=== PATIENT | female | born 1930 | race Caucasian/White ===

== ENCOUNTER 2017-09-06 08:37 | Inpatient (IN) | payer OTHER, BC ==
--- OUTSIDE RECORDS SUMMARY | 2017-09-06 08:39 | XMS REPORT | Clinical Summary ---
:1930 Author Organization [facility] Address [address] [place] [id number] Care Team Providers Name Role Phone Kiet Coles MD Primary Care Provider Allergies Active Allergy Reactions Severity Noted Date Comments Ciprofloxacin Other (See Comments) 06/01/2016 unknown Sulfa (Sulfonamide High 06/01/2016 Was hospitalized Antibiotics) Current Medications Prescription Sig. Disp. Refills Start Date End Date Status apixaban (ELIQUIS) 5 mg Take 5 mg by Active tablet mouth 2 (two) times a day. levothyroxine (SYNTHROID, Take 100 mcg by Active LEVOXYL) 100 mcg tablet mouth every morning. spironolactone (ALDACTONE) Take 25 mg by Active 25 MG tablet mouth daily. sertraline (ZOLOFT) 25 MG Take 25 mg by Active tablet mouth daily. rosuvastatin (CRESTOR) 5 MG Take 5 mg by Active tablet mouth nightly. tamsulosin (FLOMAX) 0.4 mg Take 0.4 mg by Active capsule,extended release mouth nightly. 24hr metoprolol tartrate Take 50 mg by Active (LOPRESSOR) 50 mg tablet mouth nightly. Active Problems Problem Noted Date Atrial fibrillation 06/01/2016 Family History Medical History Relation Name Comments Heart disease Father Heart disease Mother Relation Name Status Comments Father Mother Social History Tobacco Use Types Packs/Day Years Used Date Former Smoker Comments: quit years a go Alcohol Use Drinks/Week oz/Week Comments Yes 1 Glasses of wine 0.6 1 per month Sex Assigned at Date Recorded Not on file Last Filed Vital Signs Not on file Plan of Treatment Health Maintenance Due Date Last Done Comments SHINGRIX VACCINE (#1) 1981 ZOSTER VACCINE 1991 PNEUMOCOCCAL POLYSACCHARIDE VACCINE AGE 65 AND OVER 02/10/1996 PNEUMOCOCCAL-13 02/10/1996 INFLUENZA VACCINE 12/06/2017 Implants Implanted Type Area Traveling Engineer Device Expiration Model / Identifier Date Serial / Lot Device Closure Ariana Dudley 33mm - [id number] Cardiovascular N/A: [place] 02/25/2019 [id number] / Implanted: 06/01/2016 (Quantity not on file) Implants N/A [employer] / [id number] Results Not on fileafter 09/05/2016 Insurance Payer Benefit Plan / Group Subscriber ID Type Phone Address MEDICARE MEDICARE PART A AND B xxxxxxxxxx Medicare [place], [place] BCBS BCBS CHOICE PPO/FEDERAL EMPL PPO xxxxxxxxx PPO [phone] [place] [id number]
[2017-09-06 09:24] LABS: Absolute Lymphocytes (CBC) 0.3 K/uL (0.7-4.9); Absolute Monocytes 0.7 K/uL (0.1-1.3); Basophils % 0.2 % (0-1.3); Lymphocytes % 2.7 % (15.3-44.8); MCH 29.3 pg (27.0-35.0); MPV 9.3 fL (7.6-11.3); RBC Red Blood Cell Count 4.65 M/uL (3.86-4.86)
--- NOTE | 2017-09-06 09:24 | RAD REPORT ---
EXAM DESCRIPTION: RAD - Chest Single View - 09/06/2017 9:17 am CLINICAL HISTORY: Chest pain. COMPARISON: 04/08/2016 FINDINGS: Portable technique limits examination quality. The lungs are grossly clear. The heart is upper limit normal in size. No displaced fractures. IMPRESSION: No acute intrathoracic process suspected.
[2017-09-06 09:28] LABS: Potassium 3.2 mEq/L (3.6-5.0)
[2017-09-06 09:34] LABS: Albumin 3.7 g/dL (3.2-5.5); Bilirubin Direct 0.2 mg/dL (0-0.2); Magnesium 1.8 mg/dL (1.8-2.5); Protein, Total 6.9 g/dL (6.0-8.3)
[2017-09-06 09:40] LABS: Protime INR 1.13
[2017-09-06 09:59] LABS: Blood Morphology Comment NOT SEEN (NOT SEEN); Platelet Estimate ADEQ; Urine White Blood Cell Casts OK
[2017-09-06] MEDS ORDERED: POTASSIUM CL SA 10 MEQ TAB PO ONE (10:00)
--- NOTE | 2017-09-06 10:01 | RAD REPORT ---
EXAM DESCRIPTION: CT - Head Brain Wo Cont - 09/06/2017 9:55 am CLINICAL HISTORY: Trauma, head injury COMPARISON: 04/08/2016, 11/24/2013 TECHNIQUE: All CT scans are performed using dose optimization technique as appropriate and may inclu de automated exposure control or mA/KV adjustment according to patient size. FINDINGS: No intracranial hemorrhage, hydrocephalus or extra-axial fluid collection.Mild generalized brain atrophy is present with mild periventricular and deep white matter chronic microvascular ische jerrica changes.No areas of brain edema or evidence of midline shift. Moderate fluid is seen in the left mastoid air cell. The paranasal sinuses and mastoids are otherwise clear. The calvarium is intact. IMPRESSION: No acute intracranial abnormality. Moderate left mastoid fluid.
--- NOTE | 2017-09-06 10:19 | EKG ---
Test Date: 2017-09-06 Test Time: 09:06:09 Esthetician Makeup Artist: CLIFF MEASUREMENT RESULTS: Intervals: Rate: 77 UT: QRSD: 82 QT: 394 QTc: 445 [place]: P: UT: QRS: 3 T: -27 INTERPRETIVE STATEMENTS: Atrial fibrillation with premature ventricular or aberrantly conducted complexes Nonspecific ST and T wave abnormality, probably digitalis effect Abnormal ECG Compared to ECG 04/08/2016 08:20:20 Ventricular premature complex(es) now present ST (T wave) deviation now present Sinus bradycardia no longer present Myocardial infarct finding no longer present Electronically Signed On 09-06-17 10:18:31 CDT by Ivan Carver
[2017-09-06 10:43] LABS: Urine Blood 2+ (NEG); Urine Glucose NEGATIVE (NEG); Urine Protein 1+ (NEG); Urine Specific Gravity 1.025 (1.005-1.030); Urine pH 6.5 (5.0-7.0)
[2017-09-06 10:46] LABS: Urine Bacteria LOADED /HPF (<20); Urine Culture Reflex Order REFLEXED
[2017-09-06] MEDS ORDERED: CEFTRIAXONE/SWI 1gm 1 GM/10 ML SYR ONE ×2 (10:57→21:24)
--- NOTE | 2017-09-06 12:40 | ER ---
Nurse's Notes [facility] Name: Jocy Ledesma Age: 87 yrs Sex: Female : 1930 Arrival Date: 09/06/2017 Time: 08:42 Bed 2 Private MD: Diagnosis: Weakness;Urinary tract infection, site not specified Presentation: 09/06 08:44 Presenting complaint: EMS states: EMS staff states patient c/o generalized weakness ae1 that started this morning, when she had a fall off the toilet, and then again trying to get into a wheelchair. Denies LOC, denies pain. Care prior to arrival: EMS states v/s are WNL. Mechanism of Injury: Fall. Trauma event details: Injury occurred in the [facility]. 08:44 Acuity: LORENZA 3 ae1 08:44 Method Of Arrival: EMS: [facility] ae1 11:28 Transition of care: patient was not received from another setting of care. Onset of ae1 symptoms was September 06, 2017 at 07:30. Initial Sepsis Screen: Does the patient meet any 2 criteria? RR > 20 per min. Does the patient have a suspected source of infection? Yes: Dysuria/Frequency/Urgency/UTI. Historical: - Allergies: 08:51 Ciprofloxacin HCl; ae1 08:51 Sulfa (Sulfonamide Antibiotics); ae1 - Home Meds: 08:51 levothyroxine 100 mcg oral tab 1 tab once daily [Active]; metoprolol tartrate 50 mg ae1 Oral tab 1 tab 2 times per day [Active]; sertraline 25 mg oral tab 1 tab once daily [Active]; Vitamin D Oral [Active]; cephalexin 500 mg Oral cap 1 cap every 12 hours [Active]; cranberry Oral [Active]; - PMHx: 08:51 Atrial Fib; GI Bleed; ae1 - Immunization history:: Adult Immunizations up to date. - Social history:: Smoking status: Patient/guardian denies using tobacco. Screenin:26 Abuse screen: Denies threats or abuse. Nutritional screening: No deficits noted. ae1 Tuberculosis screening: No symptoms or risk factors identified. Fall Risk None identified. Assessment: 08:42 General: Appears in no apparent distress. comfortable, Behavior is calm, cooperative. ae1 Pain: Complains of pain in dorsal aspect of left forearm, left wrist, left hand and palmar aspect of left forearm. Neuro: Level of Consciousness is awake, alert, obeys commands, Oriented to person, place, situation. Cardiovascular: Denies chest pain, Heart tones S1 S2 present Patient's skin is warm and dry. Rhythm is atrial fibrillation With PVC's. Respiratory: Airway is patent Respiratory effort is even, unlabored, Respiratory pattern is regular, symmetrical, Breath sounds are clear bilaterally. GI: Reports Nausea when she awoke this morning, however denies nausea at this time. : Urine is cloudy, Foul oder Reports burning with urination. EENT: No signs and/or symptoms were reported regarding the EENT system. Derm: Wound noted dorsal aspect of left forearm, left wrist, left hand and palmar aspect of left forearm Other: redness, swelling and warmth to the touch. patient had wrist brace applied to left wrist. Musculoskeletal: Reports General weakness. 10:15 Reassessment: Patient appears in no apparent distress at this time. Patient and/or ae1 family updated on plan of care and expected duration. Pain level reassessed. Patient denies pain at this time. 11:30 Reassessment: Patient appears in no apparent distress at this time. Patient and/or ae1 family updated on plan of care and expected duration. Pain level reassessed. 13:00 Reassessment: Meal tray delivered to patient. ae1 14:10 Reassessment: Patient appears in no apparent distress at this time. Patient and/or ae1 family updated on plan of care and expected duration. Pain level reassessed. Patient assisted onto bedpan to urinate. Patient denies pain at this time. 18:30 Reassessment: pt c/o pain to left wrist and mild swelling, splint loosened per order of iw Dr. Saucedo. 21:12 Reassessment: Pt stable and ready for transport to floor. tl2 Vital Signs: 08:43 BP 143 / 88; Pulse 88; Resp 27 S; Temp 98.6(O); Pulse Ox 93% on R/A; Weight 70.31 kg ae1 (R); Pain 0/10; 10:14 BP 153 / 96; Pulse 81; Resp 24; Pulse Ox 95% on R/A; ae1 11:25 BP 158 / 94; Pulse 80; Resp 25; Pulse Ox 95% on R/A; ae1 11:57 BP 159 / 73; Pulse 72; Pulse Ox 93% on R/A; ae1 14:07 BP 149 / 94; Pulse 92; Resp 20; Pulse Ox 96% on R/A; ae1 16:00 BP 147 / 82; Pulse 73; Resp 16; Pulse Ox 95% on R/A; ae1 19:30 BP 136 / 90; Pulse 84; Resp 18; Pulse Ox 99% on R/A; mt Dick Coma Score: 08:43 Eye Response: spontaneous(4). Verbal Response: oriented(5). Motor Response: obeys ae1 commands(6). Total: 15. Trauma Score (Adult): 08:43 Eye Response: spontaneous(1); Verbal Response: oriented(1); Motor Response: obeys ae1 commands(2); Systolic BP: > 89 mm Hg(4); Respiratory Rate: 10 to 29 per min(4); Dick Score: 15; Trauma Score: 12 ED Course: 08:42 Patient arrived in ED. ae1 08:42 Gabriel Hernandez PA is PHCP. jr8 08:42 Jose Saucedo MD is Attending Physician. jr8 08:48 Triage completed. ae1 08:55 Ifeanyi Mariano, RONALDO is Primary Nurse. ae1 09:11 Initial lab(s) drawn, by me, sent to lab. EKG done, by ip technology transactions attorney. reviewed by Gabriel jb1 Mary NOYOLA. Inserted saline lock: 22 gauge in right antecubital area, using aseptic technique. Blood collected. 09:15 X-ray completed. Portable x-ray completed in exam room. Patient tolerated procedure sw well. 09:18 XRAY Chest (1 view) In Process Unspecified. EDMS 09:40 Straight cath inserted, using sterile technique, 16 Fr. Specimen obtained. ae1 09:[address] via stretcher. vr 09:53 CT completed. Patient tolerated procedure well. Patient moved back from CT. vr 09:55 CT Head Brain wo Cont In Process Unspecified. EDMS 11:26 Arm band placed on right wrist. ae1 11:27 Placed in gown. Bed in low position. Call light in reach. Side rails up X2. Adult w/ ae1 patient. paint roller cover machine setter on. Pulse ox on. NIBP on. Warm blanket given. 12:39 Coles, A, MD is Hospitalizing Provider. jr8 12:44 X-ray completed. Portable x-ray completed in exam room. Patient tolerated procedure jb2 well. 12:45 XRAY Wrist LEFT 3 view In Process Unspecified. EDMS 14:33 Orthoglass splint: Thumb spica splint applied on left forearm. Radial pulse present and jb1 within normal limits before and after application of splint. Capillary refill was three seconds before and after application of splint. 19:45 Primary Nurse role handed off by Ifeanyi Mariano, RN rg2 21:12 No provider procedures requiring assistance completed. Patient admitted, IV remains in tl2 place. Administered Medications: 10:14 Drug: Potassium Chloride 20 mEq Route: PO; ae1 10:56 Follow up: Response: No adverse reaction ae1 11:15 Drug: Rocephin 1 grams Route: IV; Rate: calculated rate; Site: right antecubital; ae1 13:13 Follow up: IV Status: Completed infusion ae1 Outcome: 12:39 Decision to Hospitalize by Provider. jr8 21:12 Admitted to Tele accompanied by tech, family with patient, via stretcher, room 420, tl2 with chart, Report called to Dasha 21:12 Condition: stable 21:12 Discharge instructions given to patient, family, Instructed on the need for admit. 21:13 Patient left the ED. tl2 Signatures: Dispatcher [employer] EDMS Austin [place] jb1 Uri Paris rg2 Joshua Meyer jb2 Kisha Boo RN RN iw Davis, Victoria vr Roszak, Josh, PA PA jr8 Carla Diallo Taylor, RN RN tl2 Ifeanyi Mariano RN RN ae1 Italia Avalos nc Corrections: (The following items were deleted from the chart) 09:55 09:54 Temp 97.6F Oral; ae1 ae1
--- NOTE | 2017-09-06 12:40 | EDPHYS ---
Physician Documentation [facility] Name: Jocy Ledesma Age: 87 yrs Sex: Female : 1930 Arrival Date: 09/06/2017 Time: 08:42 Bed 2 Private MD: ED Physician Jose Saucedo HPI: 09/06 09:49 This 87 yrs old Female presents to ER via EMS with complaints of General jr8 Weakness, Fall Injury. 09:49 Patient stated that she fell a couple of times this morning from being weak. Denies jr8 hitting head or neck. Stated that her whole body is weak. Denies fevers, recent illness, cough, congestion, n/v/d. Onset: The symptoms/episode began/occurred acutely, today. Severity of symptoms: At their worst the symptoms were moderate in the emergency department the symptoms are unchanged. It is unknown whether or not the patient has had similar symptoms in the past. The patient has not recently seen a physician. Historical: - Allergies: 08:51 Ciprofloxacin HCl; ae1 08:51 Sulfa (Sulfonamide Antibiotics); ae1 - Home Meds: 08:51 levothyroxine 100 mcg oral tab 1 tab once daily [Active]; metoprolol tartrate 50 mg ae1 Oral tab 1 tab 2 times per day [Active]; sertraline 25 mg oral tab 1 tab once daily [Active]; Vitamin D Oral [Active]; cephalexin 500 mg Oral cap 1 cap every 12 hours [Active]; cranberry Oral [Active]; - PMHx: 08:51 Atrial Fib; GI Bleed; ae1 - Immunization history:: Adult Immunizations up to date. - Social history:: Smoking status: Patient/guardian denies using tobacco. ROS: 09:49 Eyes: Negative for injury, pain, redness, and discharge, ENT: Negative for injury, jr8 pain, and discharge, Neck: Negative for injury, pain, and swelling, Cardiovascular: Negative for chest pain, palpitations, and edema, Respiratory: Negative for shortness of breath, cough, wheezing, and pleuritic chest pain, Abdomen/GI: Negative for abdominal pain, nausea, vomiting, diarrhea, and constipation, Back: Negative for injury and pain, MS/Extremity: Negative for injury and deformity, Skin: Negative for injury, rash, and discoloration. 09:49 Neuro: Positive for weakness. Exam: 09:49 Eyes: Pupils equal round and reactive to light, extra-ocular motions intact. Lids and jr8 lashes normal. Conjunctiva and sclera are non-icteric and not injected. Cornea within normal limits. Periorbital areas with no swelling, redness, or edema. ENT: Nares patent. No nasal discharge, no septal abnormalities noted. Tympanic membranes are normal and external auditory canals are clear. Oropharynx with no redness, swelling, or masses, exudates, or evidence of obstruction, uvula midline. Mucous membranes moist. Neck: Trachea midline, no thyromegaly or masses palpated, and no cervical lymphadenopathy. Supple, full range of motion without nuchal rigidity, or vertebral point tenderness. No Meningismus. Cardiovascular: Regular rate and rhythm with a normal S1 and S2. No gallops, murmurs, or rubs. Normal PMI, no JVD. No pulse deficits. Respiratory: Lungs have equal breath sounds bilaterally, clear to auscultation and percussion. No rales, rhonchi or wheezes noted. No increased work of breathing, no retractions or nasal flaring. Abdomen/GI: Soft, non-tender, with normal bowel sounds. No distension or tympany. No guarding or rebound. No evidence of tenderness throughout. Back: No spinal tenderness. No costovertebral tenderness. Full range of motion. Skin: Warm, dry with normal turgor. Normal color with no rashes, no lesions, and no evidence of cellulitis. MS/ Extremity: Pulses equal, no cyanosis. Neurovascular intact. Full, normal range of motion. Neuro: Awake and alert, GCS 15, oriented to person, place, time, and situation. Cranial nerves II-XII grossly intact. Motor strength 5/5 in all extremities. Sensory grossly intact. Cerebellar exam normal. Normal gait. Vital Signs: 08:43 BP 143 / 88; Pulse 88; Resp 27 S; Temp 98.6(O); Pulse Ox 93% on R/A; Weight 70.31 kg ae1 (R); Pain 0/10; 10:14 BP 153 / 96; Pulse 81; Resp 24; Pulse Ox 95% on R/A; ae1 11:25 BP 158 / 94; Pulse 80; Resp 25; Pulse Ox 95% on R/A; ae1 11:57 BP 159 / 73; Pulse 72; Pulse Ox 93% on R/A; ae1 14:07 BP 149 / 94; Pulse 92; Resp 20; Pulse Ox 96% on R/A; ae1 16:00 BP 147 / 82; Pulse 73; Resp 16; Pulse Ox 95% on R/A; ae1 19:30 BP 136 / 90; Pulse 84; Resp 18; Pulse Ox 99% on R/A; mt [place] Coma Score: 08:43 Eye Response: spontaneous(4). Verbal Response: oriented(5). Motor Response: obeys ae1 commands(6). Total: 15. Trauma Score (Adult): 08:43 Eye Response: spontaneous(1); Verbal Response: oriented(1); Motor Response: obeys ae1 commands(2); Systolic BP: > 89 mm Hg(4); Respiratory Rate: 10 to 29 per min(4); Dick Score: 15; Trauma Score: 12 MDM: 08:42 Patient medically screened. [facility] 12:38 Data reviewed: vital signs, nurses notes, lab test result(s), EKG, radiologic studies, [facility] CT scan, plain films, and as a result, I will admit patient. Data interpreted: Pulse oximetry: on room air is 93 %. Interpretation: normal. Counseling: I had a detailed discussion with the patient and/or guardian regarding: the historical points, exam findings, and any diagnostic results supporting the discharge/admit diagnosis, lab results, radiology results, the need for further work-up and treatment in the hospital. Physician consultation: A Sanket CHEN was called at 12:39, was contacted at 12:39, regarding admission, to the telemetry unit. consult, patient's condition, and will see patient. 12:48 ED course: placed call to Rhina Pascal for obs vs inpatient admission. Awaiting call back .09/06 08:52 Order name: Basic Metabolic Panel; Complete Time: 09:48 09/06 08:52 Order name: BNP; Complete Time: 09:48 09/06 08:52 Order name: CBC with Diff; Complete Time: 10:20 09/06 08:52 Order name: CPK; Complete Time: 09:48 09/06 08:52 Order name: LFT's; Complete Time: 09:48 09/06 08:52 Order name: Magnesium; Complete Time: 09:48 8 09/06 08:52 Order name: PT-INR; Complete Time: 09:58 8 09/06 08:52 Order name: XRAY Chest (1 view); Complete Time: 09:48 8 09/06 08:53 Order name: Urine Microscopic Only; Complete Time: 10:52 8 09/06 08:54 Order name: CT Head Brain wo Cont; Complete Time: 10:20 8 09/06 09:30 Order name: CBC Smear Scan; Complete Time: 10:20 [facility] 09/06 09:50 Order name: Urine Dipstick--Ancillary (enter results); Complete Time: 10:52 [facility] 09/06 10:48 Order name: Urine Culture [facility] 09/06 10:59 Order name: XRAY Wrist LEFT 3 view; Complete Time: 13:04 8 09/06 08:52 Order name: EKG; Complete Time: 08:53 8 09/06 08:52 Order name: Cardiac monitoring; Complete Time: 09:12 8 09/06 08:52 Order name: EKG - Nurse/Tech; Complete Time: 09:12 09/06 08:52 Order name: IV Saline Lock; Complete Time: 09:13 8 09/06 08:52 Order name: Labs collected and sent; Complete Time: 09:13 09/06 08:52 Order name: O2 Per Protocol; Complete Time: 09:13 09/06 08:52 Order name: O2 Sat Monitoring; Complete Time: 09:13 09/06 08:52 Order name: Urine Dipstick-Ancillary (obtain specimen); Complete Time: 09:37 8 09/06 08:53 Order name: Straight Cath - Urine; Complete Time: 09:37 8 09/06 12:48 Order name: Thumb Spica Splint; Complete Time: 14:07 jr8 Administered Medications: 10:14 Drug: Potassium Chloride 20 mEq Route: PO; ae1 10:56 Follow up: Response: No adverse reaction ae1 11:15 Drug: Rocephin 1 grams Route: IV; Rate: calculated rate; Site: right antecubital; ae1 13:13 Follow up: IV Status: Completed infusion ae1 Disposition: 09/06/17 12:39 Hospitalization ordered by Grabiel Coles for Observation. Preliminary diagnosis are Weakness, Urinary tract infection, site not specified. - Bed requested for Telemetry/MedSurg (observation). - Status is Observation. tl2 - Condition is Stable. - Problem is new. - Symptoms have improved. UTI on Admission? Yes Addendum: 09/08/2017 07:05 Co-signature as Attending Physician, Jose Saucedo MD I agree with the assessment and w a plan of care. Signatures: Dispatcher [employer] EDMS Prachi Berry RN RN Gabriel Kang PA PA jr8 Lara George RN RN tl2 Ifeanyi Mariano RN RN ae1 Jose Saucedo MD MD wa Corrections: (The following items were deleted from the chart) 09/06 13:08 12:39 Hospitalization Ordered by A Sanket CHEN for Inpatient Admission. Preliminary jr8 diagnosis is Weakness; Urinary tract infection, site not specified. Bed requested for Telemetry/MedSurg (Inpatient). Status is Inpatient Admission. Condition is Stable. Problem is new. Symptoms have improved. UTI on Admission? Yes. jr8 19:25 13:08 09/06/2017 12:39 Hospitalization Ordered by A Sanket CHEN for Observation. kl Preliminary diagnosis is Weakness; Urinary tract infection, site not specified. Bed requested for Telemetry/MedSurg (observation). Status is Observation. Condition is Stable. Problem is new. Symptoms have improved. UTI on Admission? Yes. jr8 21:13 19:25 09/06/2017 12:39 Hospitalization Ordered by A Sanket CHEN for Observation. tl2 Preliminary diagnosis is Weakness; Urinary tract infection, site not specified. Bed requested for Telemetry/MedSurg (observation). Status is Observation. Condition is Stable. Problem is new. Symptoms have improved. UTI on Admission? Yes. elvia
--- NOTE | 2017-09-06 12:59 | RAD REPORT ---
EXAM DESCRIPTION: RAD - Wrist Left 3 View - 09/06/2017 12:47 pm CLINICAL HISTORY: Pain and redness. COMPARISON: None. FINDINGS: Prominent degenerative change with periarticular calcification noted involving the first c arpometacarpal joint. Calcification of the TFCC is present with radiocarpal degenerative changes. S oft tissue swelling is seen. IMPRESSION: No acute fracture seen. Prominent degenerative changes involving the first carpometacarpal joint is seen with periarticular c alcifications. Calcifications also seen involving the TFCC. Clinical correlation for possible underly ing inflammatory arthropathy such as CPPD is suggested.
[2017-09-06] MEDS ORDERED: NA CHLORIDE 0.9% 1,000 ML ONE (15:03)
[2017-09-06] MEDS ORDERED: ACETAMINOPHEN 500 MG TAB PO PRN (17:48)
[2017-09-06] MEDS: NA CHLORIDE 0.9% 1,000 ML IV SCH (20:37)
[2017-09-06] MEDS ORDERED: ONDANSETRON 4 MG/2 ML VIAL IV PRN (20:37)
[2017-09-06] MEDS: METOPROLOL TAR 25 MG TAB PO SCH (21:00)
[2017-09-06] MEDS ORDERED: CEFTRIAXONE 1 GM/NS 50 ML 1 GM/50 ML BAG IV SCH (21:00)
[2017-09-06] MEDS: APIXABAN 2.5 MG TABLET PO SCH (21:00)
[2017-09-07] MEDS: NA CHLORIDE 0.9% 1,000 ML IV SCH (04:10)
--- NOTE | 2017-09-07 05:55 | HP ---
Date of Admission: 09/06/2017 Chief Complaint: Weakness and fall. History Of Present Illness: An 87-year-old female patient, who lives at home, who fell down due to generalized weakness and was brought into the emergency room. She was complaining of some pain in her left forearm and wrist area. She was evaluated in the ER. There was no evidence of any fracture and she was found to have urinary tract infection. It was difficult for her to ambulate, so I was contacted from the ER requesting admission to the hospital. I saw her in the emergency room. She was awake, alert, oriented, answering questions appropriately, and her daughter was with her. Allergies: CIPRO AND SULFA. Medications: List reviewed. Review of Systems: Constitutional: As mentioned above. Genitourinary: Has some burning sensation on urination. All other systems reviewed and negative. Social History: Negative for smoking and alcohol use. The patient does have prior history of smoking, but she quit long time ago. Family History: Mother had Alzheimer disease, diabetes, Parkinson. Brother had diabetes. Past Surgical History: Hysterectomy, cataract surgery, bladder suspension, hemorrhoid surgery, and Watchman device in place for atrial fibrillation. Past Medical History: Significant for hypertension, hyperlipidemia, hypothyroidism, gastroesophageal reflux disease, osteoarthritis at multiple sites, atrial fibrillation, vitamin D deficiency. Physical Examination: Vital signs: When she came into ER, blood pressure 143/88, pulse 88, respiratory rate 27, temperature 98.6, oxygen saturation 93%. Weight 70.31 kg. General: Awake, alert, oriented, not in distress. HEENT: Head atraumatic, normocephalic. Conjunctivae nonerythematous. Sclerae white. Mouth, no thrush or edema noted. Ears/Nose, no mass, lesion, discharge noted. Neck: Supple. No JVD, lymph nodes, bruit, thyromegaly noted. Lungs: Bilateral good equal air entry. Clear to auscultation. No rhonchi. No rales. Heart: Normal heart sounds, no murmur or gallop. Abdomen: Soft, bowel sounds normal. No guarding, rigidity, tenderness, mass, hepatosplenomegaly, distention, or bruit noted. Extremities: No leg edema. No calf tenderness. Skin: No rash, ulcer, cellulitis. Lymphatics: No lymph node enlargement in neck, supraclavicular, infraclavicular region. Neuro: No focal neurological deficit. Chest: Unremarkable. External Genitalia: Deferred. Rectal: Deferred. Laboratory Data: Wrist x-ray; negative for fracture, presence of degenerative joint disease changes. CAT scan of the head negative for any acute intracranial changes. Chest x-ray, no acute cardiopulmonary changes. White count 12.1, hemoglobin 13.6, platelets 165. Sodium 137, potassium 3.2, chloride 101, bicarb 30, BUN 12, creatinine 0.76, glucose 160. Liver function tests unremarkable. BNP 471. Urinalysis; positive for nitrite, 2+ esterase, 20 -50 wbc, bacteria loaded, 1+ protein. Impression: 1. Urinary tract infection. 2. Osteoarthritis, multiple sites. 3. Atrial fibrillation. 4. Hypokalemia. 5. Hypertension. 6. Hyperlipidemia. 7. Hypothyroidism. 8. Gastroesophageal reflux disease. 9. Vitamin D deficiency. Plan: Admit the patient to hospital for further evaluation and management of this problem. We will go ahead and give her IV fluid. Replace electrolyte. Repeat blood work tomorrow morning. Start IV antibiotics per order. Home medications will be continued per order. We will request consultation from Physical Therapy. Fall precaution was ordered, and I will see her tomorrow for followup. We will monitor atrial fibrillation problem. She was on Eliquis in the past and we will restart if it is necessary. Meanwhile, give Lovenox per order. I did talk to her and her daughter about advance directives. The patient is thinking about no heroic measures like no defibrillation, no CPR, no ventilator support, but she is not sure about this decision, so at this point she remains full code per her decision and she is going to discuss details with her daughter and then come up with a final decision and let me know. I did talk to patient's daughter as she had question about if the patient needs to go to assisted care facility or nursing facility, and we did talk about all those options as well. FATIMAH/MARSHALL Voice ID: [id number] TABITHA
[2017-09-07 06:47] LABS: Absolute Lymphocytes (CBC) 0.8 K/uL (0.7-4.9); Absolute Monocytes 0.9 K/uL (0.1-1.3); Absolute Neutrophil 8.4 K/uL (1.8-8.0); Basophils % 0.4 % (0-1.3); Eosinophils % 0.3 % (0-4.4); Hematocrit 36.9 % (36.0-45.0); Lymphocytes % 8.1 % (15.3-44.8); MCH 29.2 pg (27.0-35.0); MCV 89.2 fL (80-100); Monocytes % 8.8 % (3.3-12.3); RBC Red Blood Cell Count 4.14 M/uL (3.86-4.86)
[2017-09-07 06:52] LABS: BUN Blood Urea Nitrogen 11 mg/dL (6-20); Bicarbonate 30 mEq/L (21-31); Glucose Level 112 mg/dL (65-120); Magnesium 1.9 mg/dL (1.8-2.5); Potassium 3.2 mEq/L (3.6-5.0); Sodium Level 137 mEq/L (135-145)
[2017-09-07] MEDS: APIXABAN 2.5 MG TABLET PO SCH ×2 (08:21→08:32)
[2017-09-07] MEDS: METOPROLOL TAR 25 MG TAB PO SCH ×2 (08:21→21:00)
[2017-09-07] MEDS: CEFTRIAXONE/SWI 1gm 1 GM/10 ML SYR IV SCH ×2 (08:21→20:59)
[2017-09-07] MEDS: CHOLECALCIFEROL PO SCH (09:00)
[2017-09-07] MEDS: ASCORBATE CALCIUM 500 MG PO SCH ×2 (09:00→20:59)
[2017-09-07] MEDS: CRANBERRY FRUIT PO SCH ×2 (09:00→20:59)
--- NOTE | 2017-09-07 11:14 | ECHO ---
HEIGHT: 5 ft 8 in WEIGHT: 191 lb 0 oz DATE OF STUDY: 09/07/[address]: Sanjeev Field MD 2-DIMENSIONAL: YES M.MODE: YES DOPPLER: YES COLOR FLOW: YES TDS: NO PORTABLE: NO DEFINITY: NO BUBBLE STUDY: NO DIAGNOSIS: ATRIAL FIBRILLATION CARDIAC HISTORY: CATHERIZATION: SURGERY: PROSTHETIC VALVE: PACEMAKER: MEASUREMENTS (cm) DIASTOLIC (NORMALS) SYSTOLIC (NORMALS) IVSd 1.1 (0.6-1.2) LA Diam 4.4 (1.9-4.0) LVEF 47% LVIDd 4.2 (3.5-5.7) LVIDs 3.2 (2.0-3.5) %FS 23% LVPWd 1.0 (0.6-1.2) Ao Diam 2.9 (2.0-3.7) 2 DIMENSIONAL ASSESSMENT: RIGHT ATRIUM: DILATED LEFT ATRIUM: DILATED RIGHT VENTRICLE: NORMAL LEFT VENTRICLE: NORMAL TRICUSPID VALVE: NORMAL MITRAL VALVE: NORMAL PULMONIC VALVE: NORMAL AORTIC VALVE: NORMAL PERICARDIAL EFFUSION: NONE AORTIC ROOT: NORMAL LEFT VENTRICULAR WALL MOTION: MILD GLOBAL HYPOKINESIS. DOPPLER/COLOR FLOW: MILD MITRAL AND TRICUSPID REGURGITATION. NORMAL RIGHT VENTRICULAR SYSTOLIC PRESSURE. COMMENTS: MILDLY DEPRESSED LEFT VENTRICULAR EJECTION FRACTION. DILATED LEFT AND RIGHT ATRIUM. 60-80 BEATS PER MINUTE. ATRIAL FIBRILLATION. MILD MITRAL AND TRICUSPID REGURGITATION. TECHNOLOGIST: MAYA GOMEZ [facility]
--- NOTE | 2017-09-07 14:58 | CON ---
Date of Consultation: 09/07/[address] Cervantes's service and I saw the patient on 09/07/2017. Reason For Consultation: Atrial fibrillation. History Of Present Illness: Ms. Ledesma is an 87-year-old white woman. She is a patient of Dr. Eduardo tejeda, has undergone Watchman procedure because of history of GI bleeding and atrial fibrillation. Com es in with fall and weakness spell, found to have UTI. She has been treated effectively. She is asy mptomatic now. She has atrial fibrillation that is chronic in the 80s, but no symptoms. She had a n egative chest x-ray and she had . Echocardiogram is pending. Past Medical History: As stated atrial fibrillation, GI bleed . She is status post Watchm an procedure. Allergies: SULFA AND CIPROFLOXACIN. Medications: At home include metoprolol and Synthroid. Review of Systems: Negative. Social History: Negative. Family History: Negative. Physical Examination: General: She appears to be in no acute distress. She is alert and oriented x3. HEENT: Negative. Neck: Supple with no bruit. Chest: Clear. Cardiac: Revealed atrial fibrillation. Abdomen: Benign. Extremities: Revealed no clubbing, cyanosis, or edema. Diagnostic Data: As stated earlier. Impression: 1.Chronic atrial fibrillation, rate controlled, no symptoms, status post Watchman procedure with his tory of GI bleed. I would suggest just the baby aspirin, and I would personally avoid the use of Laurie pat and continue her beta solo. We will see what the echo shows before making final decision, bu t the case will be discussed with Dr. Coles. 2.History of GI bleed, stable. 3.History of hypothyroidism, on Synthroid. 4.Urinary tract infection, being treated now by Dr. Coles. The patient can go home whenever it is ok ay with Dr. Coles. BARON/MARSHALL Voice ID: [id number] Report ID: [id number]
[2017-09-07] MEDS: ASPIRIN 81 MG PO SCH (20:59)
[2017-09-07] MEDS: ACIDOPH PARACASEI B LACTIS PO SCH (20:59)
[2017-09-07] MEDS: TAMSULOSIN HCL 0.4 MG PO SCH (20:59)
[2017-09-07] MEDS: ROSUVASTATIN CALCIUM 5 MG PO SCH (20:59)
[2017-09-07] MEDS: DONEPEZIL HCL 10 MG PO SCH (20:59)
--- NOTE | 2017-09-07 22:20 | RAD REPORT ---
EXAM DESCRIPTION: CT - Wrist Left W Con - 09/07/2017 9:20 pm CLINICAL HISTORY: Left hand pain and swelling COMPARISON: Left wrist same date TECHNIQUE: Axial 2 millimeter thick images of the wrist were obtained with sagittal and coronal ozzy nstruction images generated and reviewed. FINDINGS: Advanced degenerative changes are present at the first carpal - metacarpal articulation. J oint space narrowing and marginal spurring is seen. Degenerative cystic changes are seen throughout m any of the carpal bones. An acute fracture is not identifiable. There are calcifications within the t riangular fibrocartilage complex. No pathologic destructive bone process seen. Small calcifications a re seen along the radiocarpal joint space. Soft tissue edema changes surround the wrist. No air, foreign body or drainable fluid collection. IMPRESSION: Soft tissue edema surrounds the wrist with no air, foreign body or drainable fluid colle ction. Degenerative changes are present throughout the wrist most notable at the first carpal - metacarpal a rticulation. No fracture confirmed on this study.
--- NOTE | 2017-09-08 00:58 | PN ---
Date of Progress Note: 09/07/2017 Subjective: The patient was seen this morning for followup. No new complaints or problems reported by her lying in bed, not in any distress. Objective: Vital Signs: Reviewed. HEENT: Examination unremarkable. Lungs: Clear to auscultation. Heart: Sounds normal. Abdomen: Soft. Bowel sounds normal. No guarding, rigidity, tenderness, or distention. Extremities: No leg edema. Laboratory Data: White count 10.3, hemoglobin 12.1, platelets 150. Impression: 1.Urinary tract infection. 2.Generalized weakness. 3.Atrial fibrillation. 4.Hypokalemia. 5.Hypertension. Plan: We will continue current medication. Urine culture result is pending. Continue IV antibiotic s. Discontinue IV fluid. Physical Therapy to help with the patient and to ambulate. We will follow up with Social Service to help make arrangements for discharge planning and bedside commode. During the course of day today, she had some problem with redness and pain in her left forearm wrist area a nd Orthopedic consultation was requested. Family to work with Social Service for discharge planning and I will see her tomorrow for followup. FATIMAH/MODL Voice ID: [id number] Report ID: [id number]
[2017-09-08] MEDS: Levothyroxine Sodium 100 MCG TAB PO SCH (05:42)
[2017-09-08] MEDS ORDERED: Meropenem 1000 MG/VIAL IV SCH (09:00)
[2017-09-08] MEDS: CRANBERRY FRUIT PO SCH ×2 (09:06→21:20)
[2017-09-08] MEDS: SERTRALINE 25 MG PO SCH (09:06)
[2017-09-08] MEDS: ASCORBATE CALCIUM 500 MG PO SCH ×2 (09:06→21:19)
[2017-09-08] MEDS: METOPROLOL TAR 25 MG TAB PO SCH ×2 (09:07→21:15)
[2017-09-08] MEDS: CHOLECALCIFEROL PO SCH (09:07)
[2017-09-08] MEDS: IBUPROFEN 200 MG TAB PO SCH ×2 (09:08→21:25)
[2017-09-08] MEDS: Meropenem 1,000 MG in NA CHLORIDE 0.9% 100 ML IV SCH ×2 (09:18→21:27)
--- NOTE | 2017-09-08 16:15 | RAD REPORT ---
EXAM DESCRIPTION: RAD - Chest Single View - 09/08/2017 4:03 pm CLINICAL HISTORY: Device placement PICC line placement COMPARISON: none FINDINGS: A PICC line has been inserted with its tip in the distal superior vena cava. The right lung base is hazy. The bilateral interstitial opacities probably are chronic. The heart is normal size. IMPRESSION: PICC line with its tip in the distal superior vena cava The right lung base is hazy which could be secondary to a small pleural effusion, atelectasis or mild infiltrate
--- NOTE | 2017-09-08 18:34 | CON ---
Date of Consultation: 09/07/2017 This is my first time seeing this patient to my knowledge. She is an 87-year- old female, who may or may not have fallen. She is admitted for UTI as well as problems, which may be related to a fall. She says she was having pain in her hand as well as perhaps a slight amount of swelling prior to the fall; however, now, has developed increasing pain and problems related to her left hand. She does have a significant amount of swelling related to it. This pain is primarily in the region of the first CMC or first web space. X-rays were taken of her wrist, which demonstrated severe degenerative changes of the first CMC, whether or not this is complicated by fracture is quite difficult to assess, but it does appear to be TFCC calcifications, and may very well be consistent with fracture or at least an injury to the first CMC joint. She does not really have any expanding erythema. I do not believe it is consistent with cellulitis. She does have movement of all of her fingers. I do not see any signs of septic flexor tenosynovitis, although she does have significant swelling. Assessment: There are various etiologies for this possibility of tendinitis or exacerbation of first CMC arthritis is there; however, there may very well be direct trauma of the first CMC or other carpal structures, which are causing the problem. Also, there is the possibility of simple tendinitis, less likely though, perhaps more serious possibility of deep palmar infection or abscess. Plan: At this time, I will speak with Dr. Coles. Most likely, we will move forward with elevation and after speaking with Dr. Coles, we will probably move forward with some sort of imaging, most likely a CT scan or MRI. She does not want to wear a splint. She has one, but she feels it is making her hand swell. At this time, we will advise her to continue elevate it. /MARSHALL Voice ID: [id number] Report ID: [id number] MTDD
[2017-09-08] MEDS: ASPIRIN 81 MG PO SCH (21:19)
[2017-09-08] MEDS: DONEPEZIL HCL 10 MG PO SCH (21:21)
[2017-09-08] MEDS: ACIDOPH PARACASEI B LACTIS PO SCH (21:21)
[2017-09-08] MEDS: ROSUVASTATIN CALCIUM 5 MG PO SCH (21:22)
[2017-09-08] MEDS: TAMSULOSIN HCL 0.4 MG PO SCH (21:34)
--- NOTE | 2017-09-08 23:47 | PN ---
Date of Progress Note: 09/08/2017 Subjective: Patient was seen this morning for followup. She was lying in bed, not in distress. Her daughter was present with her at bedside. Objective: Vital Signs: Reviewed. HEENT: Unremarkable. Lungs: Clear to auscultation. Heart: Heart sounds normal. Abdomen: Soft. Bowel sounds normal. No guarding, rigidity, tenderness, or distention. Extremities: No leg edema. Left distal forearm and dorsum hand have mild soft tissue swelling with pink discoloration of the skin. No evidence of cellulitis. Laboratory Data: Urine culture growing Pseudomonas and it is sensitive to Cipro, Levaquin, meropenem , gentamicin, amikacin. Impression: 1.Urinary tract infection, organism Pseudomonas. 2.Contusion, left hand. 3.Osteoarthritis, multiple sites. 4.Hypokalemia. 5.Atrial fibrillation. 6.Hypertension. 7.Generalized weakness. Plan: I had a long discussion with the patient and patient's daughter this morning regarding dischar ge planning. The patient is allergic to Cipro, so she will not be able to take Cipro or Levaquin for this urinary tract infection with Pseudomonas. Only other option now is to provide IV antibiotics, so we did talk about that and we will start her on meropenem, and a PICC line was suggested for IV an tibiotic administration. The patient so far was living at home by herself. Obviously, after this re cent fall and this illness, she is having significant decline in her overall condition. She is not a ble to go back home to live independently again and if she does go back home, at least at this point she will need 24 hour care. So, we did talk about going to senior living facility to the patient a nd family; they are agreeable to do so, and Social Service will assist with senior living facility placement where she will receive physical therapy, occupational therapy, as well as IV antibiotic. F or atrial fibrillation, we will continue to follow up with batching operator. The patient had GI bleeding problem with anticoagulant medication in the past. That is why she had the Watchman procedure. We will see what the batching operator will suggest. We will repeat blood work tomorrow morning and I will s ee her tomorrow morning for followup. I spent 30 minutes this morning answering all the questions an d discharge planning discussion with the patient and patient's daughter. FATIMAH/MODL Voice ID: [id number] Report ID: [id number]
[2017-09-09] MEDS: Levothyroxine Sodium 100 MCG TAB PO SCH (06:00)
[2017-09-09 06:03] LABS: Absolute Lymphocytes (CBC) 0.7 K/uL (0.7-4.9); Absolute Monocytes 0.6 K/uL (0.1-1.3); Absolute Neutrophil 6.2 K/uL (1.8-8.0); Basophils % 0.7 % (0-1.3); Eosinophils % 3.5 % (0-4.4); Hematocrit 36.5 % (36.0-45.0); Lymphocytes % 9.2 % (15.3-44.8); MCV 89.1 fL (80-100); MPV 10.1 fL (7.6-11.3); Monocytes % 7.4 % (3.3-12.3)
[2017-09-09 06:14] LABS: BUN Blood Urea Nitrogen 14 mg/dL (6-20); Bicarbonate 31 mEq/L (21-31); Glucose Level 107 mg/dL (65-120); Magnesium 1.9 mg/dL (1.8-2.5); Potassium 3.2 mEq/L (3.6-5.0); Sodium Level 141 mEq/L (135-145)
--- NOTE | 2017-09-09 08:47 | DS ---
Subjective: The patient is seen today. Her hand appears to be a little less swollen, perhaps even a little less painful. Her pain is still centered around the first CMC joint. She has had a CT scan overnight with contrast, which does demonstrate severe osteoarthritis of the first carpometacarpal raisa int. Also, there appears to be some arthritic changes at the STT joint. There is also some calcific ation at the return with triangular fibrocartilage complex. At this point, there is no drainable flu id collection or fracture seen. Assessment: This could be a fairly significant flare of her first CMC joint and STT joint. However, this appears to be less localized with that. 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 Still slight suspicion for an i nfectious process or other. No abscess is seen. It would be reasonable to continue elevation as wel l as range of motion of the fingers. May wish to consider the addition of anti-inflammatories if isacc erated by the patient desired by the primary care physician. We will watch and observe this clinical ly for any signs of worsening or improvement. /MARSHALL Voice ID: [id number] Report ID: [id number]
[2017-09-09] MEDS ORDERED: POTASSIUM 25 MEQ EFFERV TAB PO ONE ×2 (09:00→21:17)
[2017-09-09] MEDS: SERTRALINE 25 MG PO SCH (09:12)
[2017-09-09] MEDS: Meropenem 1,000 MG in NA CHLORIDE 0.9% 100 ML IV SCH ×2 (09:13→21:05)
[2017-09-09] MEDS: CHOLECALCIFEROL PO SCH (09:13)
[2017-09-09] MEDS: CRANBERRY FRUIT PO SCH ×2 (09:13→21:08)
[2017-09-09] MEDS: IBUPROFEN 200 MG TAB PO SCH ×2 (09:14→21:04)
[2017-09-09] MEDS: ASCORBATE CALCIUM 500 MG PO SCH ×2 (09:15→21:09)
[2017-09-09] MEDS: METOPROLOL TAR 25 MG TAB PO SCH ×2 (09:15→21:05)
--- NOTE | 2017-09-09 13:27 | PN ---
Date of Progress Note: 09/09/2017 Subjective: The patient was seen this morning for followup. No new complaints or problems reported by the patient lying in bed, not in distress. Her pain in the distal forearm and hand region is much better today. Swelling and bruising are better and her range of motion is much better. Objective: Vital Signs: Reviewed. HEENT: Examination unremarkable. Lungs: Clear to auscultation. Heart: Heart sounds normal. Abdomen: Soft. Bowel sounds normal. No guarding, rigidity, tenderness, or distention. Extremities: No leg edema. Laboratory Data: White count 7.8, hemoglobin 11.9, and platelets 152. Sodium 141, potassium 3.2, ch loride 105, bicarb 31, BUN 14, creatinine 0.57, glucose 107, and magnesium 1.9. Impression: 1.Urinary tract infection, organism Pseudomonas. 2.Hypokalemia. 3.Atrial fibrillation. 4.Hypertension. 5.Osteoarthritis, multiple sites. 6.Contusion, left arm. Plan: We will go ahead and continue ibuprofen, which was started yesterday. Continue Physical Thera py, Occupational Therapy. Continue current antibiotic, meropenem and I will see her tomorrow for fol lowup. The patient overall feels better today than yesterday. Social Service is assisting the patient and family for penitentiary placement. FATIMAH/MARSHALL Voice ID: [id number] Report ID: [id number]
[2017-09-09] MEDS: ACIDOPH PARACASEI B LACTIS PO SCH (21:07)
[2017-09-09] MEDS: TAMSULOSIN HCL 0.4 MG PO SCH (21:08)
[2017-09-09] MEDS: DONEPEZIL HCL 10 MG PO SCH (21:09)
[2017-09-09] MEDS: ASPIRIN 81 MG PO SCH (21:10)
[2017-09-09] MEDS: ROSUVASTATIN CALCIUM 5 MG PO SCH (21:11)
--- NOTE | 2017-09-10 02:04 | DS ---
Subjective: The patient is seen today. Her white blood cell count is 7.8. She has been afebrile. She says she is having some soreness in her hand, both in the region of first CMC as well as on the u lnar aspect of her hand in the region of the hypothenar eminence. There is no significant tenderness in this area and no sign of any fluid collection. She does have swelling over the dorsum of her anderson d but this is decreased. There is now more significant bruising on the volar aspect of the wrist. H owever, there is no expanding erythema, and I believe that her swelling is decreasing. She is using her hand for more functional activities. At this point, I believe she most likely had a contusion or perhaps flare-up of arthritis of her left hand from a contusion. They are currently treating her fo r other medical problems and probably will be discharged soon. If she is discharged over the weekend , probably have her come see me in my office next week or sooner with any problems. ONEL Voice ID: [id number] Report ID: [id number]
[2017-09-10 05:46] LABS: BUN Blood Urea Nitrogen 15 mg/dL (6-20); Bicarbonate 32 mEq/L (21-31); Glucose Level 106 mg/dL (65-120); Magnesium 1.9 mg/dL (1.8-2.5); Potassium 4.1 mEq/L (3.6-5.0); Sodium Level 141 mEq/L (135-145)
[2017-09-10] MEDS: Levothyroxine Sodium 100 MCG TAB PO SCH (06:00)
[2017-09-10] MEDS: LEVOTHYROXINE SOD 0.1 MG TAB PO SCH (06:06)
[2017-09-10] MEDS: CRANBERRY FRUIT PO SCH ×2 (08:38→20:40)
[2017-09-10] MEDS: SERTRALINE 25 MG PO SCH (08:38)
[2017-09-10] MEDS: CHOLECALCIFEROL PO SCH (08:38)
[2017-09-10] MEDS: Meropenem 1,000 MG in NA CHLORIDE 0.9% 100 ML IV SCH ×2 (08:39→20:35)
[2017-09-10] MEDS: IBUPROFEN 200 MG TAB PO SCH ×2 (08:40→20:36)
[2017-09-10] MEDS: METOPROLOL TAR 25 MG TAB PO SCH ×2 (08:40→20:36)
[2017-09-10] MEDS: ASCORBATE CALCIUM 500 MG PO SCH ×2 (08:41→20:40)
--- NOTE | 2017-09-10 14:22 | PN ---
Date of Progress Note: 09/10/2017 Subjective: The patient was seen this morning for followup. Lying in bed, not in any distress. Her left forearm and hand swelling and pain is getting better , and she reports no new complaints problems reported. Had a bowel movement yesterday. Denies any nausea, vomiting, abdominal pain. No chest pain. No shortness of breath. Objective: Vital Signs: Reviewed. HEENT: Examination unremarkable. Lungs: Clear to auscultation. Heart: Heart sounds normal. Abdomen: Soft, bowel sounds normal. No guarding, rigidity, tenderness, or distention. Extremities: No leg edema. Minimum swelling of left forearm and dorsum hand. Overall much better. No sinus cellulitis. Range of motion is normal at the hand and wrist level. Laboratory Data: Sodium 141, potassium 4.1, chloride 105, bicarb 32, BUN 15, creatinine 0.58, glucose 106, magnesium 1.9. Impression: 1. Urinary tract infection, organism Pseudomonas. 2. Hypertension. 3. Atrial fibrillation. 4. Generalized weakness. Plan: We will go ahead and continue current antibiotics, which is meropenem, Physical Therapy to continue to work with the patient, continue ibuprofen per order, and I will see her tomorrow for followup. I did talk to her today regarding her advanced directive once again as it was discussed at the time of admission and the patient was not able to make decision at that particular time as she wanted to talk to her daughter, and I did ask her if she has given any thoughts, and if she had discussion with her daughter and what her decision is, and she informed me today very clearly that in the case of cardiopulmonary arrest, she does not want any CPR, defibrillation or ventilator support. We will have nursing staff confirm that for documentation purpose, and then we will write DNR order in the chart. FATIMAH/MODL Voice ID: [id number] Report ID: [id number] TABITHA
[2017-09-10] MEDS: ROSUVASTATIN CALCIUM 5 MG PO SCH (20:38)
[2017-09-10] MEDS: DONEPEZIL HCL 10 MG PO SCH ×2 (20:39→21:00)
[2017-09-10] MEDS: TAMSULOSIN HCL 0.4 MG PO SCH (20:39)
[2017-09-10] MEDS: ACIDOPH PARACASEI B LACTIS PO SCH (20:40)
[2017-09-10] MEDS: ASPIRIN 81 MG PO SCH (20:40)
[2017-09-11 05:53] LABS: BUN Blood Urea Nitrogen 12 mg/dL (6-20); Bicarbonate 32 mEq/L (21-31); Glucose Level 108 mg/dL (65-120); Potassium 3.7 mEq/L (3.6-5.0); Sodium Level 141 mEq/L (135-145)
[2017-09-11] MEDS: Levothyroxine Sodium 100 MCG TAB PO SCH (06:00)
[2017-09-11] MEDS ORDERED: POTASSIUM 25 MEQ EFFERV TAB PO ONE (06:30)
[2017-09-11] MEDS: LEVOTHYROXINE SOD 0.1 MG TAB PO SCH (06:41)
[2017-09-11] MEDS: IBUPROFEN 200 MG TAB PO SCH ×2 (09:11→21:51)
[2017-09-11] MEDS: METOPROLOL TAR 25 MG TAB PO SCH ×2 (09:11→21:50)
[2017-09-11] MEDS: SERTRALINE 25 MG PO SCH (09:11)
[2017-09-11] MEDS: CRANBERRY FRUIT PO SCH ×2 (09:12→21:48)
[2017-09-11] MEDS: CHOLECALCIFEROL PO SCH (09:12)
[2017-09-11] MEDS: ASCORBATE CALCIUM 500 MG PO SCH ×2 (09:13→21:00)
[2017-09-11] MEDS: Meropenem 1,000 MG in NA CHLORIDE 0.9% 100 ML IV SCH ×2 (09:13→21:48)
[2017-09-11] MEDS: DONEPEZIL HCL 10 MG PO SCH (21:49)
[2017-09-11] MEDS: ACIDOPH PARACASEI B LACTIS PO SCH (21:49)
[2017-09-11] MEDS: ROSUVASTATIN CALCIUM 5 MG PO SCH (21:49)
[2017-09-11] MEDS: TAMSULOSIN HCL 0.4 MG PO SCH (21:49)
[2017-09-11] MEDS: ASPIRIN 81 MG PO SCH (21:50)
--- NOTE | 2017-09-12 01:04 | PN ---
Date of Progress Note: 09/11/2017 Subjective: The patient was seen this morning for followup. No new complaints or problems reported by her. Lying in bed, not in distress. Objective: Vital signs: Reviewed. HEENT: Examination unremarkable. Lungs: Clear to auscultation. Heart: Heart sounds normal. Abdomen: Soft. Bowel sounds normal. No guarding, rigidity, tenderness, or distention. Extremities: No leg edema. Laboratory Data: Sodium 141, potassium 3.7, chloride 105, bicarb 32, BUN 12, creatinine 0.56, glucos e 108, magnesium 2. Impression: 1.Urinary tract infection, organism Pseudomonas. 2.Generalized weakness. 3.Atrial fibrillation. 4.Hypokalemia. 5.Hypertension. 6.Hypothyroidism. Plan: We will continue current medications and antibiotics. Physical Therapy to continue to work wi th the patient. Social Service is working on jail placement for the patient. As soon as arr angements get completed, the patient will be discharged. She is medically stable for discharge. Yes terday when I talked to the patient and discussed about advanced directives, she informed me that she did not want any CPR, defibrillation, or ventilator support and I did request nursing staff to confi rm the patient's decision. When two nurses went into the room to discuss and confirm DNR order, at t hat time, the patient informed nursing staff that she is not ready to make decision until she talks t o all her 3 children, so she is going back and forth. So obviously at this point, she remains full c ode. I will keep her as a full code until I hear something differently from the patient. FATIMAH/MODL Voice ID: [id number] Report ID: [id number]
[2017-09-12 05:47] LABS: Potassium 4.2 mEq/L (3.6-5.0)
[2017-09-12] MEDS: LEVOTHYROXINE SOD 0.1 MG TAB PO SCH (06:00)
[2017-09-12 06:15] VITALS: BMI 29.1
[2017-09-12] MEDS: Levothyroxine Sodium 100 MCG TAB PO SCH (06:16)
[2017-09-12] MEDS: SERTRALINE 25 MG PO SCH (08:52)
[2017-09-12] MEDS: METOPROLOL TAR 25 MG TAB PO SCH (08:53)
[2017-09-12] MEDS: CHOLECALCIFEROL PO SCH (08:53)
[2017-09-12] MEDS: CRANBERRY FRUIT PO SCH (08:54)
[2017-09-12] MEDS: Meropenem 1,000 MG in NA CHLORIDE 0.9% 100 ML IV SCH (08:55)
[2017-09-12] MEDS: ASCORBATE CALCIUM 500 MG PO SCH (08:55)
[2017-09-12] MEDS: IBUPROFEN 200 MG TAB PO SCH (08:58)
[2017-09-12 10:35] VITALS: O2SAT 96
[2017-09-12 12:05] VITALS: BP 144/84; TEMP 98.2
[2017-09-12] MEDS ORDERED: DONEPEZIL HCL 5 MG TAB PO SCH (21:00)
--- NOTE | 2017-09-13 04:13 | DS ---
Date of Discharge: 09/12/2017 Disposition: [facility]. Physical Examination: HEENT: Unremarkable. Lungs: Clear to auscultation. Heart: Sounds normal. Abdomen: Soft. Bowel sounds normal. No guarding, rigidity, tenderness, or distention. Extremities: No leg edema. Discharge Medications And Instructions: 1.Continue prior home medications. 2.Consult physical therapy, occupational therapy at [facility]. 3.Fall precautions. 4.penitentiary to administer meropenem 1000 mg IV piggyback every 12 hours for 6 days. 5.Flush PICC line per protocol. 6.Change PICC line dressing per protocol. 7.Remove PICC line after 6 days of IV antibiotic therapy completed at [facility]. Hospital Course: This is an 87-year-old female patient, who was admitted to the hospital with genera lized weakness and fall. Please see dictated H and P for more information. The patient was living a t home and she had significant generalized weakness, fell down at home, and was complaining of pain i n her left wrist, left forearm, and left hand area. She came into ER. After she was evaluated, she was admitted to the hospital. Her x-ray of the left upper extremity was negative for fracture. The patient has significant pain and tenderness and limited range of motion due to pain in the beginning. Orthopedic consultation was requested from Dr. Hayes and he did order CAT scan of the left uppe r extremity, which came back negative for any fracture. The patient was started on ibuprofen, and sh e actually showed significant improvement with ibuprofen where her range of motion has improved, pain has improved, and swelling has resolved from left upper extremity. She has significant generalized weakness which is due to underlying urinary tract infection. When she came in, her urinalysis was ab normal. Initially, she was started on ceftriaxone and urine culture came back growing Pseudomonas an d it was sensitive to Cipro and Levaquin, but the patient is allergic to Cipro, and as a result of at we started her on IV meropenem as of Monday of last week. Social Service consultation was request ed. Since she lives at home, we did discuss with her and her daughter about discharge planning. She is not able to go back home to live by herself. So, as other option, [facility], where the patient can receive her IV antibiotic, physical therapy, occupational therapy, and that is what the patient and family decided, so Social Service was consulted. Family d ecided to go to [facility] and her usual home medications were continued. Today, after all the arrangements completed, the patient was discharged to go to this particular [facility]. Advanced directive was discussed with the patient 2 different times; first time when she was i n the emergency room on the day of admission and second time over the weekend, and the patient has no t been able to make decision as documented. She informed me that she did not want rather any kind of heroic measures done but at the same time, she wanted to talk to her daughter and this was first gertrude e when I talked to her when she was in the emergency room and subsequently when I asked her over the weekend on Monday, she informed me that she did not want any such heroic measures done and I wanted n ursing staff to confirm this decision, and when the nursing staff went in the room to ask her, she in formed nursing staff that she wanted to discuss with all 3 of her children before she makes any decis ion. So, the patient remains full code. Cardiology consultation was obtained from Dr. Field for h er atrial fibrillation. The patient had Watchman's procedure done, so she is not on any anticoagulat ion therapy because she had actually GI bleeding problem with anticoagulation. She remains on aspiri n and has tolerated that very well. Final Diagnoses: 1.Urinary tract infection, organism Pseudomonas. 2.Generalized weakness secondary to above. 3.Osteoarthritis, multiple sites. 4.Hypokalemia. 5.Atrial fibrillation, chronic. 6.Hypertension. 7.Hyperlipidemia. 8.Hypothyroidism. 9.Gastroesophageal reflux disease. 10.Vitamin D deficiency. Laboratory Data: Labs done during this hospitalization; last chemistry yesterday, sodium 141, potass ium 3.7, chloride 105, bicarbonate 32. BUN 12, creatinine 0.56, glucose 108. Initial sodium 137, po tassium 3.2, chloride 101, bicarbonate 30. BUN 12, creatinine 0.76, glucose 160. Liver function tricia t normal. Initial white count 12.1, hemoglobin 13.6, platelets 165. On 09/09/2017, white count 7.8, hemoglobin 11.9, platelets 152. FATIMAH/MODL Voice ID: [id number] Report ID: [id number]
== END 2017-09-12 14:41 | DRG 690 ==
LOC: ER 08:37 → ERHOLD 12:39 → 4TH 19:49 → OBSVTOIN 09-08 09:30
PROVIDERS: ADMIT Physician Assistant; ATTEND Internal Medicine
PROC: 02HV33Z Insertion of Infusion Device into Superior Vena Cava, Percutaneous Approach (ICD-10-PCS; principal; 2017-09-08)
DX: N39.0 Urinary tract infection, site not specified (principal); B96.5 Pseudomonas (aeruginosa) (mallei) (pseudomallei) as the cause of diseases classified elsewhere; R53.1 Weakness; M15.9 Polyosteoarthritis, unspecified; E87.6 Hypokalemia; I48.2 Chronic atrial fibrillation; I10 Essential (primary) hypertension; E78.5 Hyperlipidemia, unspecified; E03.9 Hypothyroidism, unspecified; K21.9 Gastro-esophageal reflux disease without esophagitis; E55.9 Vitamin D deficiency, unspecified; S60.222A Contusion of left hand, initial encounter; W01.0XXA Fall on same level from slipping, tripping and stumbling without subsequent striking against object, initial encounter; Y92.009 Unspecified place in unspecified non-institutional (private) residence as the place of occurrence of the external cause
CPT/HCPCS: 36415; 51702; 70450; 71045; 73201; 80048; 80076; 81003; 81015; 82550; 83735; 83880; 84132; 85025; 85610; 87077; 87086; 87088; 87186; 93005; 93306; 96365; 96366; 97163; 99285; G0378; J0696; J2405; J7030; Q9967

== ENCOUNTER 2017-10-11 18:59 | Inpatient (IN) | payer OTHER, BC ==
--- OUTSIDE RECORDS SUMMARY | 2017-10-11 19:01 | XMS REPORT | Clinical Summary ---
:1930 Author Organization [facility] Address [address] [place] [id number] Care Team Providers Name Role Phone Kiet [...] INFLUENZA VACCINE 12/06/2017 Implants Implanted Type Area Civil Structural Engineer Device Expiration Model / Identifier Date Serial / Lot Device Closure Ariana Dudley 33mm - [id number] Cardiovascular N/A: [place] 02/25/2019 [id number] / Implanted: 06/01/2016 (Quantity not on file) Implants N/A [employer] / [id number] Results Not on fileafter 10/10/2016 Insurance Payer Benefit Plan / Group Subscriber ID Type Phone Address MEDICARE MEDICARE PART A AND B xxxxxxxxxx Medicare [place], [place] BCBS BCBS CHOICE PPO/FEDERAL EMPL PPO xxxxxxxxx PPO [phone] [place] [id number]
[2017-10-11 20:16] LABS: Absolute Lymphocytes (CBC) 0.4 K/uL (0.7-4.9); Absolute Neutrophil 12.6 K/uL (1.8-8.0); Basophils % 0.1 % (0-1.3); Eosinophils % 0.1 % (0-4.4); Hematocrit 37.8 % (36.0-45.0); Lymphocytes % 2.7 % (15.3-44.8); MCH 27.1 pg (27.0-35.0); MCV 85.2 fL (80-100); MPV 9.5 fL (7.6-11.3); Monocytes % 6.9 % (3.3-12.3); RBC Red Blood Cell Count 4.43 M/uL (3.86-4.86)
[2017-10-11 20:20] LABS: Protime INR 1.21
[2017-10-11 20:32] LABS: Albumin 3.2 g/dL (3.2-5.5); Bilirubin Direct 0.4 mg/dL (0-0.2); Bilirubin Total 1.1 mg/dL (0.3-1.2); Protein, Total 6.7 g/dL (6.0-8.3)
[2017-10-11 20:37] LABS: CKMB Creatine Kinase MB 1.3 ng/ml (0.3-4.0)
[2017-10-11 21:07] LABS: Thyroid Stimulating Hormone 1.03 uIU/mL (0.34-5.60)
--- NOTE | 2017-10-11 21:15 | RAD REPORT ---
EXAM DESCRIPTION: RAD - Chest Single View - 10/11/2017 8:15 pm CLINICAL HISTORY: Fever, shortness of breath COMPARISON: September 08 TECHNIQUE: AP portable chest image was obtained 2010 hours . FINDINGS: No focal consolidation, mass or significant failure. Lung markings are prominent but not c learly different. Heart and vasculature are normal. No pneumothorax or large pleural effusion. No guy ss bony abnormality seen. No acute aortic findings suspected. IMPRESSION: No acute cardiopulmonary process. Interstitial markings are prominent but not clearly different comparison.
[2017-10-11 21:18] LABS: Potassium 4.2 mEq/L (3.6-5.0)
[2017-10-11 21:48] LABS: Urine Bacteria 20-50 /HPF (<20)
[2017-10-11 21:49] LABS: Urine Amorphous Sediment 1+ /HPF (NONE SEEN); Urine Culture Reflex Order REFLEXED; Urine Mucus 1+ /HPF (NONE SEEN)
[2017-10-11 21:50] LABS: Urine Blood 3+ (NEG); Urine Glucose NEGATIVE (NEG); Urine Protein 3+ (NEG)
[2017-10-11] MEDS ORDERED: CEFTRIAXONE/SWI 1gm 1 GM/10 ML SYR ONE (22:44)
[2017-10-11] MEDS ORDERED: ENOXAPARIN 80 MG/0.8 ML SQ ONE (23:44)
--- NOTE | 2017-10-12 01:17 | EDPHYS ---
Physician Documentation [facility] Name: Jocy Ledesma Age: 87 yrs Sex: Female : 1930 Arrival Date: 10/11/2017 Time: 19:10 Bed 30 Private MD: ED Physician Abhinav Salvador HPI: 10/11 22:00 This 87 yrs old Female presents to ER via EMS with complaints of Shortness Of pm1 Breath. 22:00 The patient has shortness of breath with light activity. Onset: The symptoms/episode pm1 began/occurred 4 day(s) ago. The patient's shortness of breath is aggravated by light activity, walking, is alleviated by rest. Severity of symptoms: in the emergency department the symptoms have improved. Recently admitted and treated for urinary tract infection and generalized weakness. Per son, she had the same presentation of symptoms. Patient currently at [facility] and her son was intending to take her home soon. On Monday, he took her out to get food but she started complaining of generalized weakness and shortness of breath with walking. Patient denies any chest pain, orthopnea, or swelling to extremities. Patient denies fever and chills and did not even know that she was febrile on presentation to the ER. Patient was given Tylenol in route by EMS. Patient without any complaints except generalized weakness and shortness of breath with exertion . Historical: - Allergies: 19:26 Ciprofloxacin HCl; mb3 19:26 Sulfa (Sulfonamide Antibiotics); mb3 - Home Meds: 19:26 Lactobacillus acidophilus oral cap nightly [Active]; Aricept 10 mg Oral tab 1 tab once mb3 daily [Active]; aspirin 81 mg oral chew 1 tab once daily [Active]; levothyroxine 100 mcg tab 1 tab once daily [Active]; metoprolol tartrate 50 mg Oral tab 1 tab once daily [Active]; rosuvastatin 5 mg oral tab 1 tab once daily [Active]; sertraline 25 mg oral tab 1 tab once daily [Active]; tamsulosin 0.4 mg oral cp24 1 cap once daily [Active]; Vitamin C 500 mg Oral tab every morning [Active]; cholecalciferol (vitamin D3) 1,000 unit oral tab daily [Active]; cranberry Oral twice a day [Active]; potassium chloride 20 mEq Oral TbTQ 1 tab once daily for Hypokalemia [Active]; - PMHx: 19:26 Atrial Fib; GI Bleed; Dementia; hypokalemia, hypothyroidism; mb3 - Immunization history:: Adult Immunizations up to date. - Social history:: Smoking status: Patient/guardian denies using tobacco, never smoked. - Ebola Screening: : Patient denies travel to an Ebola-affected area in the 21 days before illness onset No symptoms or risks identified at this time. ROS: 22:00 Constitutional: Negative for fever, chills, and weight loss, Eyes: Negative for injury, pm1 pain, redness, and discharge, ENT: Negative for injury, pain, and discharge, Neck: Negative for injury, pain, and swelling, Cardiovascular: Negative for chest pain, palpitations, and edema. 22:00 Abdomen/GI: Negative for abdominal pain, nausea, vomiting, diarrhea, and constipation, Back: Negative for injury and pain, : Negative for injury, bleeding, discharge, and swelling, MS/Extremity: Negative for injury and deformity, Skin: Negative for injury, rash, and discoloration. 22:00 Respiratory: Positive for shortness of breath, on exertion. 22:00 Neuro: Positive for weakness, Negative for dizziness, headache, Focal weakness. Exam: 22:00 Constitutional: This is a well developed, well nourished patient who is awake, alert, pm1 and in no acute distress. Head/Face: Normocephalic, atraumatic. Eyes: Pupils equal round and reactive to light, extra-ocular motions intact. Lids and lashes normal. Conjunctiva and sclera are non-icteric and not injected. Cornea within normal limits. Periorbital areas with no swelling, redness, or edema. Neck: Trachea midline, no thyromegaly or masses palpated, and no cervical lymphadenopathy. Supple, full range of motion without nuchal rigidity, or vertebral point tenderness. No Meningismus. Chest/axilla: Normal chest wall appearance and motion. Nontender with no deformity. No lesions are appreciated. 22:00 Cardiovascular: Regular rate and rhythm with a normal S1 and S2. No gallops, murmurs, or rubs. Normal PMI, no JVD. No pulse deficits. 22:00 Respiratory: Lungs have equal breath sounds bilaterally, clear to auscultation and percussion. No rales, rhonchi or wheezes noted. No increased work of breathing, no retractions or nasal flaring. Abdomen/GI: Soft, non-tender, with normal bowel sounds. No distension or tympany. No guarding or rebound. No evidence of tenderness throughout. Back: No spinal tenderness. No costovertebral tenderness. Full range of motion. Skin: Warm, dry with normal turgor. Normal color with no rashes, no lesions, and no evidence of cellulitis. MS/ Extremity: Pulses equal, no cyanosis. Neurovascular intact. Full, normal range of motion. 22:00 ENT: External ear(s): are unremarkable, Ear canal(s): are normal, TM's: Nose: is normal, Mouth: is normal. 22:00 Neuro: Orientation: is normal, Mentation: appropriate for stated age, Motor: is normal, moves all fours. Vital Signs: 19:27 BP 145 / 91; Pulse 108; Resp 32; Temp 100.5(O); Pulse Ox 100% on 2 lpm NC; Weight 69.85 mb3 kg; Height 5 ft. 8 in. (172.72 cm); Pain 0/10; 20:52 BP 113 / 83; Pulse 85; Resp 23; Pulse Ox 98% on R/A; mb3 23:33 BP 121 / 85; Pulse 116; Resp 24; Pulse Ox 98% on R/A; mb3 10/12 01:19 BP 126 / 80; Pulse 81; Resp 24; Pulse Ox 100% on R/A; mb3 02:06 BP 123 / 76; Pulse 73; Resp 22; Temp 98.1(O); Pulse Ox 99% on 2 lpm NC; mb3 02:34 BP 116 / 82; Pulse 87; Resp 24; Pulse Ox 100% on 2 lpm NC; mb3 10/11 19:27 Body Mass Index 23.42 (69.85 kg, 172.72 cm) [facility] MDM: 10/11 19:32 Patient medically screened. [facility] 10/12 01:15 Data reviewed: vital signs. Data interpreted: Pulse oximetry: on room air is 98 %. pm1 Interpretation: normal. Counseling: I had a detailed discussion with the patient and/or guardian regarding: the historical points, exam findings, and any diagnostic results supporting the discharge/admit diagnosis, lab results, radiology results, the need for further work-up and treatment in the hospital. 10/11 19:35 Order name: Basic Metabolic Panel pm1 10/11 19:35 Order name: BNP; Complete Time: 21:16 pm1 10/11 19:35 Order name: CBC with Diff; Complete Time: 21:16 pm1 10/11 19:35 Order name: Ckmb; Complete Time: 21:35 pm1 10/11 19:35 Order name: CPK; Complete Time: 21:35 pm1 10/11 19:35 Order name: LFT's; Complete Time: 21:35 pm1 10/11 19:35 Order name: Magnesium; Complete Time: 21:35 pm1 10/11 19:35 Order name: PT-INR; Complete Time: 21:16 pm1 10/11 19:35 Order name: Ptt, Activated; Complete Time: 21:16 pm1 10/11 19:35 Order name: Troponin (emerg Dept Use Only); Complete Time: 21:16 pm1 10/11 19:35 Order name: Urine Microscopic Only; Complete Time: 22:43 pm1 10/11 19:35 Order name: TSH; Complete Time: 21:35 pm1 10/11 19:35 Order name: Blood Culture Adult (2) pm1 10/11 19:36 Order name: Basic Metabolic Panel; Complete Time: 21:35 EDMS 10/11 19:35 Order name: XRAY Chest (1 view); Complete Time: 21:16 pm1 10/11 19:35 Order name: EKG; Complete Time: 19:36 pm1 10/11 19:35 Order name: Cardiac monitoring; Complete Time: 20:11 pm10/11 19:35 Order name: EKG - Nurse/Tech pm10/11 19:35 Order name: IV Saline Lock; Complete Time: 20:11 pm1 10/11 19:35 Order name: Labs collected and sent; Complete Time: 20:11 pm10/11 19:35 Order name: O2 Per Protocol; Complete Time: 20:12 pm10/11 19:35 Order name: O2 Sat Monitoring; Complete Time: 20:12 pm1 10/11 19:35 Order name: Urine Dipstick-Ancillary (obtain specimen) pm10/11 19:37 Order name: Straight Cath - Urine; Complete Time: 22:16 pm1 10/11 21:27 Order name: Urine Dipstick--Ancillary (enter results); Complete Time: 22:43 ms 10/11 21:29 Order name: CT Chest For PE Angio pm1 10/11 21:38 Order name: Urine Culture pm1 Administered Medications: 10/11 20:24 Not Given (Duplicate Order): Tylenol 1000 mg PO once mb3 23:45 Drug: Lovenox 1 mg/kg Route: Sub-Q; Site: left lower abdomen; mb3 10/12 01:18 Follow up: Response: No adverse reaction mb3 00:30 Drug: Rocephin 1 grams Route: IV; Rate: calculated rate; Site: left upper arm; mb3 01:18 Follow up: IV Status: Completed infusion; IV Intake: 50ml mb3 01:18 Follow up: Response: No adverse reaction mb3 Disposition: 07:17 Co-signature as Attending Physician, Abhinav Salvador MD I agree with the assessment and conchita plan of care. Disposition: 10/12/17 01:17 Hospitalization ordered by Grabiel Coles for Inpatient Admission. Preliminary diagnosis are Elevated troponin, Weakness, Urinary tract infection, site not specified, Fever, unspecified, Shortness of breath. - Bed requested for Telemetry/MedSurg (Inpatient). - Status is Inpatient Admission. mb3 - Condition is Stable. - Problem is new. - Symptoms have improved. UTI on Admission? Yes Signatures: Dispatcher [employer] EDNJ Prerna Martin RN RN mw Anderson, Corey, MD MD cha Marinas, Patrick, NAIL PROFESSIONAL NAIL PROFESSIONAL pm1 Abisai Young RN RN mb3 Corrections: (The following items were deleted from the chart) :26 01:17 Hospitalization Ordered by A Sankte CHEN for Inpatient Admission. Preliminary franciscoj diagnosis is Elevated troponinWeakness; Urinary tract infection, site not specified; Fever, unspecified; Shortness of breath. Bed requested for Telemetry/MedSurg (Inpatient). Status is Inpatient Admission. Condition is Stable. Problem is new. Symptoms have improved. UTI on Admission? Yes. pm1 02:57 01:26 10/12/2017 01:17 Hospitalization Ordered by A Sanket CHEN for Inpatient Admission. mb3 Preliminary diagnosis is Elevated troponinWeakness; Urinary tract infection, site not specified; Fever, unspecified; Shortness of breath. Bed requested for Telemetry/MedSurg (Inpatient). Status is Inpatient Admission. Condition is Stable. Problem is new. Symptoms have improved. UTI on Admission? Yes. mw
--- NOTE | 2017-10-12 01:17 | ER ---
Nurse's Notes [facility] Name: Jocy Ledesma Age: 87 yrs Sex: Female : 1930 Arrival Date: 10/11/2017 Time: 19:10 Bed 30 Private MD: Diagnosis: Weakness;Urinary tract infection, site not specified;Fever, unspecified;Elevated troponin;Shortness of breath Presentation: 10/11 19:11 Presenting complaint: Patient states: been getting short of breath since Monday, mb3 gradually getting worse. Transition of care: patient was received from another setting of care ([facility]. Onset of symptoms was October 07, 2017. Risk Assessment: Do you want to hurt yourself or someone else? Patient reports no desire to harm self or others. Initial Sepsis Screen: Does the patient meet any 2 criteria? RR > 20 per min. Temp <36.0*C (96.8*F)) or > 38.3*C (100.4*F). Yes Does the patient have a suspected source of infection? Yes: Other: short of breath, fever. Care prior to arrival: Medication(s) given: Tylenol, 1000 mg, Oxygen administered. via nasal cannula. 19:11 Method Of Arrival: EMS: [facility] mb3 19:11 Acuity: LORENZA 3 mb3 Triage Assessment: 19:28 General: Appears distressed, well groomed, Behavior is calm, cooperative, appropriate mb3 for age. Pain: Denies pain. Neuro: Level of Consciousness is awake, alert, obeys commands, Oriented to person, place, situation, Smoked Meat Preparer are equal bilaterally Moves all extremities. Full function. Cardiovascular: Reports shortness of breath, Denies chest pain, Heart tones present Capillary refill < 3 seconds Patient's skin is warm and dry. Pulses are palpable in right radial artery, right dorsalis pedis artery, left radial artery and left dorsalis pedis artery. Respiratory: Reports shortness of breath Airway is patent Respiratory effort is labored, Respiratory pattern is regular, symmetrical, Breath sounds are clear bilaterally. Breath sounds are diminished in right middle lobe, left lower lobe and right lower lobe Onset: The symptoms/episode began/occurred started monday, the patient has moderate shortness of breath. GI: No deficits noted. No signs and/or symptoms were reported involving the gastrointestinal system. Abdomen is flat, Bowel sounds present X 4 quads. Abd is soft and non tender. : No signs and/or symptoms were reported regarding the genitourinary system. Musculoskeletal: No signs and/or symptoms reported regarding the musculoskeletal system. Historical: - Allergies: 19:26 Ciprofloxacin HCl; mb3 19:26 Sulfa (Sulfonamide Antibiotics); mb3 - Home Meds: 19:26 Lactobacillus acidophilus oral cap nightly [Active]; Aricept 10 mg Oral tab 1 tab once mb3 daily [Active]; aspirin 81 mg oral chew 1 tab once daily [Active]; levothyroxine 100 mcg tab 1 tab once daily [Active]; metoprolol tartrate 50 mg Oral tab 1 tab once daily [Active]; rosuvastatin 5 mg oral tab 1 tab once daily [Active]; sertraline 25 mg oral tab 1 tab once daily [Active]; tamsulosin 0.4 mg oral cp24 1 cap once daily [Active]; Vitamin C 500 mg Oral tab every morning [Active]; cholecalciferol (vitamin D3) 1,000 unit oral tab daily [Active]; cranberry Oral twice a day [Active]; potassium chloride 20 mEq Oral TbTQ 1 tab once daily for Hypokalemia [Active]; - PMHx: 19:26 Atrial Fib; GI Bleed; Dementia; hypokalemia, hypothyroidism; mb3 - Immunization history:: Adult Immunizations up to date. - Social history:: Smoking status: Patient/guardian denies using tobacco, never smoked. - Ebola Screening: : Patient denies travel to an Ebola-affected area in the 21 days before illness onset No symptoms or risks identified at this time. Screenin:31 Abuse screen: Denies threats or abuse. Nutritional screening: No deficits noted. mb3 Tuberculosis screening: No symptoms or risk factors identified. Fall Risk No fall in past 12 months (0 pts). Secondary diagnosis (15 points) No IV (0 pts). Ambulatory Aid- Crutches/Cane/Walker (15 pts). Gait- Weak (10 pts.). Mental Status- Oriented to own ability (0 pts). Total Campos Fall Scale indicates Low Risk Score (25-44 pts). Side Rails Up X 2 Placed close to Nursing Station Frequent Obs/Assesments occuring. Assessment: 19:30 General: see triage assessment. Cardiovascular: Denies chest pain, Rhythm is irregular. mb3 23:34 Reassessment: Patient appears in no apparent distress at this time. No changes from mb3 previously documented assessment. Patient and/or family updated on plan of care and expected duration. Pain level reassessed. Patient is alert, oriented x 3, equal unlabored respirations, skin warm/dry/pink. Patient states feeling better. 10/12 01:19 Reassessment: No changes from previously documented assessment. Patient and/or family mb3 updated on plan of care and expected duration. Pain level reassessed. Patient is alert, oriented x 3, equal unlabored respirations, skin warm/dry/pink. Vital Signs: 10/11 19:27 BP 145 / 91; Pulse 108; Resp 32; Temp 100.5(O); Pulse Ox 100% on 2 lpm NC; Weight 69.85 mb3 kg; Height 5 ft. 8 in. (172.72 cm); Pain 0/10; 20:52 BP 113 / 83; Pulse 85; Resp 23; Pulse Ox 98% on R/A; mb3 23:33 BP 121 / 85; Pulse 116; Resp 24; Pulse Ox 98% on R/A; mb3 10/12 01:19 BP 126 / 80; Pulse 81; Resp 24; Pulse Ox 100% on R/A; mb3 02:06 BP 123 / 76; Pulse 73; Resp 22; Temp 98.1(O); Pulse Ox 99% on 2 lpm NC; mb3 02:34 BP 116 / 82; Pulse 87; Resp 24; Pulse Ox 100% on 2 lpm NC; mb3 10/11 19:27 Body Mass Index 23.42 (69.85 kg, 172.72 cm) mb3 ED Course: 10/11 19:10 Patient arrived in ED. mb3 19:11 Abisai Young, RONALDO is Primary Nurse. mb3 19:15 Triage completed. mb3 19:29 Ernesto Ernst NP is PHCP. pm1 19:29 Abhinav Salvador MD is Attending Physician. pm1 19:32 Patient has correct armband on for positive identification. Bed in low position. Call mb3 light in reach. Side rails up X 1. slp teacher on. Pulse ox on. NIBP on. 20:12 X-ray completed. Portable x-ray completed in exam room. Patient tolerated procedure bb2 well. 20:13 XRAY Chest (1 view) In Process Unspecified. EDMS 20:24 Inserted saline lock: 22 gauge in left wrist, using aseptic technique. Blood collected. mb3 20:50 Straight cath inserted, using sterile technique, Specimen obtained. 15Fr Returned kr2 cloudy urine. 22:00 Radiology exam delayed due to IV insertion attempt and/or patient not having sj appropriate IV at this time. 10/12 00:46 Inserted 18 gauge 10 cm midline to left upper basilic vein on first attempt. Line with fc good blood return and flushes well. 01:16 Grabiel Coles MD is Hospitalizing Provider. pm1 01:[address] via stretcher. kw1 02:02 CT completed. Patient tolerated procedure well. Patient moved back from CT. kw1 02:09 Arm band placed on left wrist. mb3 02:33 No provider procedures requiring assistance completed. mb3 02:45 Patient admitted, IV remains in place. mb3 Administered Medications: 10/11 20:24 Not Given (Duplicate Order): Tylenol 1000 mg PO once mb3 23:45 Drug: Lovenox 1 mg/kg Route: Sub-Q; Site: left lower abdomen; mb3 10/12 01:18 Follow up: Response: No adverse reaction mb3 00:30 Drug: Rocephin 1 grams Route: IV; Rate: calculated rate; Site: left upper arm; mb3 01:18 Follow up: IV Status: Completed infusion; IV Intake: 50ml mb3 01:18 Follow up: Response: No adverse reaction mb3 Intake: 01:18 IV: 50ml; Total: 50ml. mb3 Outcome: 01:17 Decision to Hospitalize by Provider. pm1 02:42 Admitted to Tele accompanied by [facility], via stretcher, room 402, with oxygen, with chart, mb3 Report called to Frances Guerrero RN 02:43 Condition: stable mb3 02:43 Instructed on the need for admit. 02:57 Patient left the ED. mb3 Signatures: Dispatcher [employer] EDMS Caroline Barragan Felicia, RN RN fc Ernesto Ernst, TANDEM MILL OPERATOR TANDEM MILL OPERATOR pm1 Susana Fung RN RN kr2 Prachi Mancuso kw1 Hillary Griffith bb2 Young, Abisai, RN RN mb3 Corrections: (The following items were deleted from the chart) 10/11 22:00 21:32 Patient moved to MT sj sj
[2017-10-12] MEDS ORDERED: ACETAMINOPHEN 500 MG TAB PO PRN (03:07)
[2017-10-12 05:03] VITALS: BMI 26.0
[2017-10-12] MEDS ORDERED: METOPROLOL XL 50 MG TAB PO SCH (06:00)
[2017-10-12] MEDS ORDERED: LEVOTHYROXINE SOD 0.1 MG TAB PO SCH (06:00)
--- NOTE | 2017-10-12 07:13 | RAD REPORT ---
EXAM DESCRIPTION: CT - Chest For Pe Angio - 10/12/2017 6:01 am CLINICAL HISTORY: Chest pain, shortness of breath A preliminary written report was provided at the time of the study, and the report was reviewed prio r to final dictation. COMPARISON: Chest films same date, CT neck May 2016 TECHNIQUE: Dynamically enhanced 3 mm thick images of the chest were obtained during administration o f approximately 150mL Isovue 370 IV contrast. Coronal and oblique reconstruction images were generate d and reviewed. Exam utilizes a protocol to evaluate the pulmonary arterial tree. All CT scans are performed using dose optimization technique as appropriate and may include automated exposure control or mA/KV adjustment according to patient size. FINDINGS: No pulmonary emboli are identified. The aorta as imaged shows no acute or suspicious finding. Cardiomegaly is present, mild in degree, wi th no pericardial effusion. No acute infiltrate in the lung parenchyma. Patient has prominent interstitial markings favored to be chronic. In the posterosuperior right upper lobe there is a 7 millimeter pulmonary nodule. This appe ars to be new from May 2016. Followup recommendation would be CT imaging in 6 months. No pleural effusion or pleural thickening. No mediastinal or hilar suspicious masses. No chest wall masses or abnormal axillary lymphadenopathy. Heterogeneous attenuation is identified in the left subclavian vein and brachiocephalic vein. This is probably a mixture of contrast opacified and non-opacified blood. This pattern is not uncommon durin g these examinations with the upper extremities raised over the head. If patient has any symptoms corinna t would suggest deep venous thrombosis, sonography could be used to clear the subclavian veins. IMPRESSION: No pulmonary emboli identified. No acute infiltrate or large mass lesion. A 7 mm pulmonary nodule is present in the right upper lobe appearing to be new from May 2016. Followup recommendation is CT imaging in 6 months. Mixed attenuation in the subclavian veins in brachiocephalic vein believed to be a mixture of contras t opacified and non-opacified blood. Thrombus is unlikely; however, sonography could be used to clear the subclavian veins if the patient has any upper extremity symptoms.
[2017-10-12] MEDS ORDERED: ASPIRIN 81 MG CHEWABLE TABLET PO SCH (09:00)
[2017-10-12] MEDS ORDERED: CEFTRIAXONE 1 GM/NS 50 ML 1 GM/50 ML BAG IV SCH (09:00)
[2017-10-12] MEDS: CRANBERRY FRUIT EXTRACT 200 MG CAP PO SCH ×2 (09:47→21:15)
[2017-10-12] MEDS: CEFTRIAXONE/SWI 1gm 1 GM/10 ML SYR IV SCH ×2 (09:47→21:16)
[2017-10-12] MEDS: VITAMIN D 1000 UNIT TAB PO SCH (09:47)
[2017-10-12] MEDS: METOPROLOL XL 50 MG TAB PO SCH (09:48)
[2017-10-12] MEDS: SERTRALINE HCL 50 MG TAB PO SCH (09:48)
[2017-10-12] MEDS: ASCORBIC ACID 500 MG TABLET PO SCH ×2 (09:49→21:17)
[2017-10-12] MEDS ORDERED: CEFTRIAXONE/SWI 1gm 1 GM/10 ML SYR IV SCH (21:00)
[2017-10-12] MEDS: ROSUVASTATIN 10 MG TAB PO SCH (21:16)
[2017-10-12] MEDS: LACTOBACILLUS/ACIDOPHILUS TAB PO SCH (21:16)
[2017-10-12] MEDS: DONEPEZIL HCL 5 MG TAB PO SCH (21:16)
[2017-10-12] MEDS: TAMSULOSIN 0.4 MG SR CAP PO SCH (21:17)
[2017-10-12] MEDS: ASPIRIN 81 MG CHEWABLE TABLET PO SCH (21:17)
[2017-10-13] MEDS: LEVOTHYROXINE SOD 0.1 MG TAB PO SCH (05:24)
[2017-10-13 05:31] LABS: Absolute Lymphocytes (CBC) 0.7 K/uL (0.7-4.9); Absolute Monocytes 0.9 K/uL (0.1-1.3); Absolute Neutrophil 7.2 K/uL (1.8-8.0); Basophils % 0.5 % (0-1.3); Eosinophils % 0.7 % (0-4.4); Hematocrit 34.1 % (36.0-45.0); Lymphocytes % 7.5 % (15.3-44.8); MCH 27.8 pg (27.0-35.0); MPV 9.8 fL (7.6-11.3); Monocytes % 9.9 % (3.3-12.3); RBC Red Blood Cell Count 4.01 M/uL (3.86-4.86)
[2017-10-13 05:50] LABS: Potassium 3.3 mEq/L (3.6-5.0)
--- NOTE | 2017-10-13 07:24 | EKG ---
Test Date: 2017-10-11 Test Time: 22:56:45 Superintendent Local: MB MEASUREMENT RESULTS: Intervals: Rate: 89 KS: QRSD: 70 QT: 380 QTc: 462 Grady: P: KS: QRS: -30 T: -51 INTERPRETIVE STATEMENTS: Undetermined rhythm Left axis deviation Minimal voltage criteria for LVH, may be normal variant Inferior infarct, age undetermined ST & T wave abnormality, consider lateral ischemia Abnormal ECG Compared to ECG 09/06/2017 09:06:09 Left-axis deviation now present Left ventricular hypertrophy now present Myocardial infarct finding now present Possible ischemia now present Atrial fibrillation no longer present Ventricular premature complex(es) no longer present ST (T wave) deviation still present Electronically Signed On 10-13-17 07:20:13 CDT by Sanjeev Field
[2017-10-13] MEDS ORDERED: POTASSIUM CL SA 10 MEQ TAB PO ONE (09:00)
[2017-10-13] MEDS: CEFTRIAXONE/SWI 1gm 1 GM/10 ML SYR IV SCH ×2 (09:13→21:00)
[2017-10-13] MEDS: ENOXAPARIN 40 MG/0.4 ML SQ SCH (09:13)
[2017-10-13] MEDS: VITAMIN D 1000 UNIT TAB PO SCH (09:14)
[2017-10-13] MEDS: CRANBERRY FRUIT EXTRACT 200 MG CAP PO SCH ×2 (09:15→21:07)
[2017-10-13] MEDS: ASCORBIC ACID 500 MG TABLET PO SCH ×2 (09:15→21:08)
[2017-10-13] MEDS: SERTRALINE HCL 50 MG TAB PO SCH (09:15)
[2017-10-13] MEDS: METOPROLOL XL 50 MG TAB PO SCH (09:16)
[2017-10-13] MEDS: TAMSULOSIN 0.4 MG SR CAP PO SCH (21:07)
[2017-10-13] MEDS: ASPIRIN 81 MG CHEWABLE TABLET PO SCH (21:08)
[2017-10-13] MEDS: DONEPEZIL HCL 5 MG TAB PO SCH (21:08)
[2017-10-13] MEDS: LACTOBACILLUS/ACIDOPHILUS TAB PO SCH (21:08)
[2017-10-13] MEDS: ROSUVASTATIN 10 MG TAB PO SCH (21:08)
--- NOTE | 2017-10-13 23:32 | PN ---
Date of Progress Note: 10/13/2017 Subjective: The patient was seen this morning for followup. No new complaints or problems reported by the patient. Her daughter was present with her today at bedside. She denies any chest pain, shor tness of breath, nausea, or vomiting. Objective: Vital signs: Reviewed. HEENT: Examination unremarkable. Lungs: Clear to auscultation. Heart: Heart sounds normal. Abdomen: Soft. Bowel sounds normal. No guarding, rigidity, tenderness, or distention. Extremities: No leg edema. Laboratory Data: Sodium 137, potassium 3.3, chloride 99, bicarb 31, BUN 15, creatinine 0.77, glucose 102. Last troponin was 0.04. BNP was 774. White count 8.8, hemoglobin 11.1, platelets 184. Urine culture growing Gram-negative rods. Blood culture negative. Impression: 1.Urinary tract infection. 2.Hypokalemia. 3.Anemia. 4.Generalized weakness. 5.Hypertension. 6.Chronic atrial fibrillation. 7.Osteoarthritis, multiple sites. Plan: We will go ahead and continue current medications. We will continue current antibiotics. Rep lace electrolytes per protocol. Details were discussed with railroad car cleaner, Dr. Field, and no furthe r cardiac intervention is needed for abnormal troponin, not indicating any acute coronary syndrome ty pe of problem. I did talk to the patient's daughter and patient regarding plan of treatment, and the patient will need to stay in hospital until we get the final report on the urine culture back. Then , we will be able to decide whether she can go back to intermediate with oral or IV antibiotics. If she needs to go to intermediate with IV antibiotics, then unfortunately she will have to stay in the hospital until those arrangements get completed, which we will not be able to take care of over the w eekend as per my discussion with the social service, and she will have to spend weekend in the hospit al, and social service can work on it starting Monday. They have already initiated a request to the patient's insurance company for IV antibiotic therapy to be given at intermediate in the event if she needs to do that. If she is going to intermediate with oral antibiotic, then we will be able to dis charge her probably by tomorrow. FATIMAH/MODL Voice ID: [id number] Report ID: [id number]
--- NOTE | 2017-10-14 02:21 | HP ---
Date of Admission: 10/12/2017 Chief Complaint: Shortness of breath. History Of Present Illness: Ms. Ledesma is an 87-year-old female patient, who was admitted to [facility] last month with urinary tract infection, generalized weakness, and was sent to half-way. Thi s was almost a month ago. The patient required IV antibiotic which was meropenem at that time. Afte r she went to half-way, she did participate with physical therapy. The patient informed me that she really did not improve quite as well as she was expecting and she is still not able to ambulate. Prior to her half-way admission, she was able to ambulate with a walker, but she has not been ab le to recover well enough to start to ambulate. In any case, she was sent back now to the emergency room with complaints of shortness of breath. After she was evaluated in the ER, she was admitted to the hospital with another urinary tract [place]. [place] [id number]. Allergies: CIPRO AND SULFA. Medications: List reviewed. Review of Systems: Respiratory: As mentioned above. Constitutional: Generalized weakness. All other systems reviewed and negative. Past Medical History: Significant for hypertension, hyperlipidemia, hypothyroidism, gastroesophageal reflux disease, osteoarthritis at multiple sites, atrial fibrillation, vitamin D deficiency. Past Surgical History: Hysterectomy, cataract surgery, bladder suspension, hemorrhoid surgery, Watch man device in place for atrial fibrillation. Family History: Mother had Alzheimer disease, diabetes, Parkinson's. Brother had diabetes. Social History: Negative for smoking or alcohol use. The patient does have prior history of smoking , but she did quit long time ago. Physical Examination: Vital Signs: Height 5 feet 8 inches, weight 171 pounds, temperature 98.3, pulse 91, respiratory rate 28, blood pressure 131/76, oxygen saturation 98% on 2 L nasal cannula oxygen. General: Awake, alert, oriented, not in distress. HEENT: Head atraumatic, normocephalic. Conjunctivae nonerythematous. Sclerae white. Mouth, no thr ush or edema noted. Ears/Nose, no mass, lesion, discharge noted. Neck: Supple. No JVD, lymph nodes, bruit, thyromegaly noted. Lungs: Bilateral good equal air entry. Clear to auscultation. No rhonchi. No rales. Heart: Normal heart sounds, no murmur or gallop. Abdomen: Soft, bowel sounds normal. No guarding, rigidity, tenderness, mass, hepatosplenomegaly, dis tention, or bruit noted. Extremities: No leg edema. No calf tenderness. Skin: No rash, ulcer, cellulitis. Lymphatics: No lymph node enlargement in neck, supraclavicular, infraclavicular region. Neuro: No focal neurological deficit. Chest: Unremarkable. External Genitalia: Deferred. Rectal: Deferred. Laboratory Data: Sodium 133, potassium 4.2, chloride 98, bicarb 26, BUN 16, creatinine 0.75, glucose 145, magnesium of 2. SGOT 107, SGPT 24, alkaline phosphatase 69, BNP 1304. Troponin 0.10. TSH 1.0 3. White count 14, hemoglobin 12, platelets 216. Urinalysis; 3+ esterase, 10-20 wbc's, bacteria 20- 50, 3+ protein. Impression: CAT scan of the chest done per PE protocol in emergency room shows no evidence of pulmon kenneth embolism, no acute infiltrate. A 7 mm pulmonary nodule present in the right upper lobe appearing to be new from May 2016. Chest x-ray; no acute cardiopulmonary changes. EKG; undetermined rhyt hm, left axis deviation, minimal voltage criteria for left ventricular hypertrophy. Impression: 1.Urinary tract infection. 2.Rule out sepsis. 3.Hyponatremia. 4.Abnormal liver function tests. 5.Atrial fibrillation, chronic. 6.Generalized weakness. 7.Osteoarthritis, multiple sites. 8.Hypertension. 9.Hyperlipidemia. 10.Hypothyroidism. 11.Gastroesophageal reflux disease. 12.Vitamin D deficiency. Plan: We will go ahead and admit the patient to hospital for further evaluation and management of th is problem. The patient is appropriate for inpatient and is expected to spend 2 midnights in the [facility]. We will go ahead and continue her half-way medications. Empiric antibiotic, ceftriaxone will be given per order. We will follow up on culture results, and once culture result comes back, kerry ibarra we will decide regarding plan of treatment whether she needs to go back to half-way with oral or IV antibiotics. We will monitor her blood count. Repeat blood work tomorrow. Consult Cardiolog y for abnormal troponin level. Details and plan of treatment discussed with the patient. I will see her tomorrow for followup. DVT prophylaxis will be given using Lovenox. FATIMAH/MARSHALL Voice ID: [id number]
--- NOTE | 2017-10-14 03:18 | CON ---
Date of Consultation: 10/12/2017 Reason For Consultation: Shortness of breath and elevated troponin. History Of Present Illness: Ms. Ledesma is an 87-year-old white woman, has a history of atrial fibr illation, dyslipidemia, GI bleed, dementia, hypokalemia, and hypothyroidism. Came in with UTI, fever , weakness, slightly short of breath with elevated troponin. I was consulted. She denied chest pain , nausea, vomiting, diaphoresis, PND, orthopnea, pedal edema, palpitations, or syncope. Allergies: SHE IS ALLERGIC TO CIPROFLOXACIN AND SULFA. Medications: Aspirin, Aricept, metoprolol, Crestor, potassium, and Flomax. Past Medical History: As stated above. Review of Systems: Negative. Social History: Negative. Family History: Noncontributory. Physical Examination: General: She appeared to be fatigued. She was somnolent. Vital Signs: Stable. She was in atrial fibrillation at a rate of 80. HEENT: Negative. Neck: Supple. No bruit. Chest: Clear to auscultation and percussion. Cardiac: Revealed atrial fibrillation. Abdomen: Benign. Extremities: Revealed no clubbing, cyanosis, or edema. Diagnostic Data: Chest x-ray was negative. EKG showed atrial fibrillation. Urinalysis showed UTI. Her BNP was 1304. Troponin was 0.1 and 0.04. Echo showed an ejection fraction of 47% with an atria l fibrillation in September of 2017. White count of 14,000. Impression And Plan: 1.Possible mild exacerbation of chronic systolic congestive heart failure. Repeat echocardiogram is pending. Chest x-ray is negative, but her BNP is elevated and her troponin is elevated probably sec ondary to mild congestive heart failure. This certainly could be chronic. 2.Atrial fibrillation. She cannot be anticoagulated because of GI bleed. Rate is controlled. 3.Dyslipidemia, on Crestor. 4.Dementia. 5.History of hypokalemia. 6.Hypothyroidism. 7.Urinary tract infection with elevated white count. We will see what her echo shows. I will discu ss the case further with Dr. Coles. No change in therapy at this point. We may want to consider a lo w dose Lasix considering her BNP and her elevated troponin and her previous low ejection fraction. BARON/MARSHALL Voice ID: [id number] Report ID: [id number]
[2017-10-14] MEDS: LEVOTHYROXINE SOD 0.1 MG TAB PO SCH (06:23)
[2017-10-14 07:26] LABS: Potassium 3.7 mEq/L (3.6-5.0)
[2017-10-14] MEDS: CEFTRIAXONE/SWI 1gm 1 GM/10 ML SYR IV SCH (08:27)
[2017-10-14] MEDS: VITAMIN D 1000 UNIT TAB PO SCH (08:27)
[2017-10-14] MEDS: ASCORBIC ACID 500 MG TABLET PO SCH ×2 (08:28→21:22)
[2017-10-14] MEDS: ENOXAPARIN 40 MG/0.4 ML SQ SCH (08:28)
[2017-10-14] MEDS: SERTRALINE HCL 50 MG TAB PO SCH (08:28)
[2017-10-14] MEDS: CRANBERRY FRUIT EXTRACT 200 MG CAP PO SCH ×2 (08:28→21:22)
[2017-10-14] MEDS: METOPROLOL XL 50 MG TAB PO SCH (08:29)
[2017-10-14] MEDS ORDERED: POTASSIUM CL SA 10 MEQ TAB PO ONE (09:00)
[2017-10-14] MEDS ORDERED: Meropenem 1000 MG/VIAL IV SCH (09:00)
[2017-10-14] MEDS: Meropenem 1,000 MG in NA CHLORIDE 0.9% 100 ML IV SCH ×2 (10:09→16:25)
--- NOTE | 2017-10-14 15:18 | PN ---
Date of Progress Note: 10/14/2017 Subjective: The patient was seen this morning for followup. She denied any complaints this morning when I saw her, lying in bed, not in distress. Objective: Vital Signs: Reviewed. HEENT: Unremarkable. Lungs: Clear to auscultation. No rhonchi. No rales. Heart: Heart sounds normal. Abdomen: Soft, bowel sounds normal. No guarding, rigidity, tenderness, or distention. Extremities: No leg edema. Laboratory Data: I did call microbiology, talked to microbiology lab clerk of urine culture results, and she informed me that it is E. coli and it is ESBL. Impression: 1.Urinary tract infection. 2.Generalized weakness. 3.Atrial fibrillation. Plan: We will go ahead and discontinue ceftriaxone. Start the patient on meropenem per order. [facility] social Service to help make arrangements for patient to receive IV meropenem at retirement upon discharge. Possible discharge to go to retirement on Monday or Monday, and we will order PICC ghislaine page for her. Details were discussed with the patient. Continue other current medical management. FATIMAH/MODL Voice ID: [id number] Report ID: [id number]
[2017-10-14] MEDS: LACTOBACILLUS/ACIDOPHILUS TAB PO SCH (21:20)
[2017-10-14] MEDS: TAMSULOSIN 0.4 MG SR CAP PO SCH (21:20)
[2017-10-14] MEDS: ROSUVASTATIN 10 MG TAB PO SCH (21:21)
[2017-10-14] MEDS: ASPIRIN 81 MG CHEWABLE TABLET PO SCH (21:22)
[2017-10-14] MEDS: DONEPEZIL HCL 5 MG TAB PO SCH (21:22)
[2017-10-15] MEDS: Meropenem 1,000 MG in NA CHLORIDE 0.9% 100 ML IV SCH ×3 (01:37→17:00)
[2017-10-15] MEDS: LEVOTHYROXINE SOD 0.1 MG TAB PO SCH (06:19)
[2017-10-15] MEDS: ASCORBIC ACID 500 MG TABLET PO SCH ×2 (09:33→20:47)
[2017-10-15] MEDS: VITAMIN D 1000 UNIT TAB PO SCH (09:33)
[2017-10-15] MEDS: ENOXAPARIN 40 MG/0.4 ML SQ SCH (09:33)
[2017-10-15] MEDS: SERTRALINE HCL 50 MG TAB PO SCH (09:34)
[2017-10-15] MEDS: CRANBERRY FRUIT EXTRACT 200 MG CAP PO SCH ×2 (09:34→20:47)
[2017-10-15] MEDS: METOPROLOL XL 50 MG TAB PO SCH (09:34)
--- NOTE | 2017-10-15 10:51 | RAD REPORT ---
EXAM DESCRIPTION: RAD - Chest Single View - 10/15/2017 1:31 am CLINICAL HISTORY: Device placement PICC line placement COMPARISON: none FINDINGS: A PICC line has been inserted with its tip in the superior vena cava. The sub centimeter right upper lobe nodule seen on the recent CAT scan is not clearly seen on this ex am. Please refer to the October 12, 2017 report for recommendation The left lung appears clear of acute infiltrate. The heart is mildly enlarged IMPRESSION: PICC line with its tip in the proximal superior vena cava
--- NOTE | 2017-10-15 11:39 | PN ---
Date of Progress Note: 10/15/2017 Subjective: The patient was seen this morning for followup. No new complaints or problems reported by the patient. Her daughter was present with her at bedside, who had lot of questions and her quest ions were if the patient can eventually go from jail to [facility] or no t if it is expected for her to keep on having recurrent urinary tract infection requiring IV antibiot ics or not, etc. All of her questions were answered to the best of my ability. Objective: Vital Signs: Reviewed. HEENT: Unremarkable. Lungs: Clear to auscultation. Heart: Heart sounds normal. Abdomen: Soft. Bowel sounds normal. No guarding, rigidity, tenderness, or distention. Extremities: No leg edema. Laboratory Data: Sodium 140, potassium 4, chloride 102, bicarb 32, BUN 12, creatinine 0.69, glucose 109. Impression: 1.Urinary tract infection. 2.Generalized weakness. 3.Atrial fibrillation. 4.Hypertension. Plan: We will continue current medications. Continue current antibiotic, meropenem. PICC line is i n place in right upper extremity. Tomorrow, Social Service will work with insurance company and [facility] to make arrangements for her to go to jail for IV antibiotic therapy and physical th erapy. Possible discharge to go home in the next day or 2 days as soon as arrangements get completed for the patient to return to senior care facility. I also informed the patient and the patient' s daughter that she will need to go ahead and communicate with senior care facility to see whenev er they are ready to go to [facility]. If [facility] will be able to take care of her needs or not, then make final decision. Also, financially they will have to look into that as well. Other considerati on is that once the patient goes to [facility], she may consider using physician at [facility]. In that case, she will not have to return to my office for regular followup visits. All these details were d iscussed with both of them. FATIMAH/MODL Voice ID: [id number] Report ID: [id number]
[2017-10-15] MEDS: DONEPEZIL HCL 5 MG TAB PO SCH (20:47)
[2017-10-15] MEDS: LACTOBACILLUS/ACIDOPHILUS TAB PO SCH (20:47)
[2017-10-15] MEDS: TAMSULOSIN 0.4 MG SR CAP PO SCH (20:47)
[2017-10-15] MEDS: ASPIRIN 81 MG CHEWABLE TABLET PO SCH (20:47)
[2017-10-15] MEDS: ROSUVASTATIN 10 MG TAB PO SCH (20:47)
[2017-10-16] MEDS: Meropenem 1,000 MG in NA CHLORIDE 0.9% 100 ML IV SCH ×3 (01:18→17:10)
[2017-10-16] MEDS: LEVOTHYROXINE SOD 0.1 MG TAB PO SCH (05:48)
[2017-10-16] MEDS: ENOXAPARIN 40 MG/0.4 ML SQ SCH (09:58)
[2017-10-16] MEDS: CRANBERRY FRUIT EXTRACT 200 MG CAP PO SCH ×2 (09:59→22:14)
[2017-10-16] MEDS: METOPROLOL XL 50 MG TAB PO SCH (09:59)
[2017-10-16] MEDS: VITAMIN D 1000 UNIT TAB PO SCH (09:59)
[2017-10-16] MEDS: SERTRALINE HCL 50 MG TAB PO SCH (10:00)
[2017-10-16] MEDS: ASCORBIC ACID 500 MG TABLET PO SCH ×2 (10:00→22:14)
[2017-10-16] MEDS: LACTOBACILLUS/ACIDOPHILUS TAB PO SCH (22:13)
[2017-10-16] MEDS: ASPIRIN 81 MG CHEWABLE TABLET PO SCH (22:13)
[2017-10-16] MEDS: ROSUVASTATIN 10 MG TAB PO SCH (22:13)
[2017-10-16] MEDS: TAMSULOSIN 0.4 MG SR CAP PO SCH (22:14)
[2017-10-16] MEDS: DONEPEZIL HCL 5 MG TAB PO SCH (22:14)
--- NOTE | 2017-10-16 23:44 | PN ---
Date of Progress Note: 10/16/2017 Subjective: The patient was seen this morning for followup. No new complaints or problems reported by her lying in bed, not in any distress. Objective: Vital Signs: Reviewed. HEENT: Unremarkable. Lungs: Clear to auscultation. Heart: Heart sounds normal. Abdomen: Soft. Bowel sounds normal. No guarding, rigidity, tenderness, or distention. Extremities: No leg edema. Impression: 1.Urinary tract infection. 2.Generalized weakness. 3.Hypertension. 4.Atrial fibrillation. Plan: We will continue current medications. Continue meropenem. Social Service to assist with nurs ing home placement. Once arrangements get completed, the patient is medically stable for discharge. FATIMAH/MODL Voice ID: [id number] Report ID: [id number]
[2017-10-17] MEDS: Meropenem 1,000 MG in NA CHLORIDE 0.9% 100 ML IV SCH ×2 (00:54→09:39)
[2017-10-17] MEDS: LEVOTHYROXINE SOD 0.1 MG TAB PO SCH (05:30)
[2017-10-17 07:57] VITALS: O2SAT 94
[2017-10-17] MEDS ORDERED: MAGNESIUM HYDROXIDE 8% 30 ML PO ONE (08:35)
[2017-10-17] MEDS: METOPROLOL XL 50 MG TAB PO SCH (09:14)
[2017-10-17] MEDS: ASCORBIC ACID 500 MG TABLET PO SCH (09:14)
[2017-10-17] MEDS: SERTRALINE HCL 50 MG TAB PO SCH (09:14)
[2017-10-17] MEDS: CRANBERRY FRUIT EXTRACT 200 MG CAP PO SCH (09:15)
[2017-10-17] MEDS: VITAMIN D 1000 UNIT TAB PO SCH (09:15)
[2017-10-17] MEDS: ENOXAPARIN 40 MG/0.4 ML SQ SCH (09:16)
[2017-10-17 09:26] VITALS: TEMP 97
[2017-10-17 11:38] VITALS: BP 134/72
--- NOTE | 2017-10-18 06:33 | DS ---
Date of Discharge: 10/17/2017 Disposition: Discharged to go to retirement. Physical Examination: HEENT: Unremarkable. Lungs: Clear to auscultation. Heart: Sounds normal. Abdomen: Soft. Bowel sounds normal. No guarding, rigidity, tenderness, or distention. Extremities: No leg edema. Hospital Course: This is an 87-year-old female patient, admitted to the hospital from retirement w ith intensive shortness of breath. Please see dictated H and P for more information. The patient's workup done in emergency room included routine labs, urinalysis, CT scan of the chest per PE protocol which was negative for pulmonary embolism. Chest x-ray did not show any pneumonia. Urinalysis was abnormal, consistent with urinary tract infection. She was admitted to the hospital with IV antibiot ic which was ceftriaxone. Her initial white count was elevated. After she was admitted to the [facility], antibiotics were continued per order. Home medications were continued. Her urine culture resul ts came back and the patient grew Gram negative rods which was ESBL and drug of choice for this organ ism is meropenem, so she was started on meropenem, and this was on Monday or Monday that we started her on meropenem. Social Service was consulted to make arrangements for IV antibiotics to be done a t retirement, and PICC line was placed. After all the arrangements completed today, the patient wa s discharged to go to retirement in stable condition. She did not have any other complaints or pro blems. Final Diagnoses: 1.Urinary tract infection. 2.Hyponatremia. 3.Generalized weakness. 4.Hypertension. 5.Chronic atrial fibrillation. 6.Abnormal liver function test. 7.Osteoarthritis, multiple sites. 8.Hyperlipidemia. 9.Hypothyroidism. 10.Gastroesophageal reflux disease. 11.Vitamin D deficiency. Discharge Medications And Instructions: 1.Continue all prior retirement medications. 2.[facility] to give meropenem 1000 mg IV piggyback every 8 hours for one week, flush PICC line pe r protocol, change PICC line dressing per protocol. 3.Get straight cath urine specimen for urinalysis and urine culture to be done after IV antibiotic t herapy completed and depending on the results retirement physician to decide about removal of PICC line. Laboratory Data: White count initially 14, hemoglobin 12, platelets 216. On 10/13/2017, white count 8.8, hemoglobin 11.1, platelets 184. Last chemistry on 10/15/2017; sodium 140, potassium 4, chlorid e 102, bicarb 32, BUN 12, creatinine 0.69, glucose 109. Urine culture grew E. coli and it was ESBL. FATIMAH/MODL Voice ID: [id number] Report ID: [id number]
== END 2017-10-17 16:57 | DRG 690 ==
LOC: ER 18:59 → ERHOLD 10-12 01:17 → 4TH 10-12 02:29
PROVIDERS: ADMIT Internal Medicine; ATTEND Internal Medicine
PROC: 02HV33Z Insertion of Infusion Device into Superior Vena Cava, Percutaneous Approach (ICD-10-PCS; principal; 2017-10-15)
DX: N39.0 Urinary tract infection, site not specified (principal); E87.1 Hypo-osmolality and hyponatremia; B96.20 Unspecified Escherichia coli [E. coli] as the cause of diseases classified elsewhere; Z16.12 Extended spectrum beta lactamase (ESBL) resistance; I48.2 Chronic atrial fibrillation; R53.1 Weakness; I10 Essential (primary) hypertension; R94.5 Abnormal results of liver function studies; M19.90 Unspecified osteoarthritis, unspecified site; E78.5 Hyperlipidemia, unspecified; E03.9 Hypothyroidism, unspecified; K21.9 Gastro-esophageal reflux disease without esophagitis; E55.9 Vitamin D deficiency, unspecified; Z88.0 Allergy status to penicillin; Z88.2 Allergy status to sulfonamides; Z79.82 Long term (current) use of aspirin
CPT/HCPCS: 36415; 51702; 71045; 71275; 80048; 80076; 81003; 81015; 82550; 82553; 83735; 83880; 84132; 84443; 84484; 85025; 85610; 85730; 87040; 87077; 87086; 87088; 87186; 93005; 96365; 96372; 97163; 99285; J0696; J1650; Q9967

== ENCOUNTER 2017-11-20 10:58 | Inpatient (IN) | payer OTHER, BC ==
--- OUTSIDE RECORDS SUMMARY | 2017-11-20 11:02 | XMS REPORT | Clinical Summary ---
:1930 Author Organization [facility] [employer] Address [address] [place] [id number] Care Team Providers Name Role Phone Kiet [...] INFLUENZA VACCINE 12/06/2017 Implants Implanted Type Area Water Pumper Device Expiration Model / Identifier Date Serial / Lot Device Closure Ariana Dudley 33mm - [id number] Cardiovascular N/A: [place] 02/25/2019 [id number] / Implanted: 06/01/2016 (Quantity not on file) Implants N/A [employer] / [id number] Results Not on fileafter 11/19/2016 Insurance Payer Benefit Plan / Group Subscriber ID Type Phone Address MEDICARE MEDICARE PART A AND B xxxxxxxxxx Medicare [place], [place] BCBS BCBS CHOICE PPO/[employer]ER[employer] EMPL PPO xxxxxxxxx PPO [phone] [place] [id number]
[2017-11-20 11:56] LABS: Absolute Lymphocytes (CBC) 0.8 K/uL (0.7-4.9); Absolute Monocytes 0.6 K/uL (0.1-1.3); Absolute Neutrophil 7.1 K/uL (1.8-8.0); Basophils % 0.6 % (0-1.3); Eosinophils % 1.5 % (0-4.4); Hematocrit 38.2 % (36.0-45.0); Lymphocytes % 9.3 % (15.3-44.8); MCH 27.9 pg (27.0-35.0); MCV 84.9 fL (80-100); MPV 9.6 fL (7.6-11.3); Monocytes % 7.1 % (3.3-12.3)
[2017-11-20 11:57] LABS: Protime INR 1.06
[2017-11-20 12:14] LABS: Magnesium 2.4 mg/dL (1.8-2.4); Potassium 3.4 mmol/L (3.5-5.1)
[2017-11-20 12:26] LABS: Urine Blood 1+ (NEG); Urine Glucose NEGATIVE (NEG); Urine Protein 1+ (NEG); Urine Specific Gravity 1.015 (1.005-1.030)
[2017-11-20 12:35] LABS: Urine Bacteria >50 /HPF (<20); Urine Culture Reflex Order NOT NEEDED
--- NOTE | 2017-11-20 12:59 | ER ---
Nurse's Notes [facility] Name: Jocy Ledesma Age: 87 yrs Sex: Female : 1930 Arrival Date: 11/20/2017 Time: 11:06 Bed 3 Private MD: Diagnosis: Acute combined systolic (congestive) and diastolic (congestive) heart failure;Cystitis;Lobar pneumonia, unspecified organism Presentation: 11/20 11:07 Presenting complaint: EMS states: was called for pt complaining of SOB and difficulty hj breathing, at 8am, O2 sat 72% RA; EMS on scene, O2 sat at 90%; per report, smells UTI urine; administered albuterol x 2; solumedrol IV at 20 R AC; NS 200 ml; BP- 151/87; RR- 35;- Afib- 98; from [facility];. Transition of care: patient was received from another setting of care (long-term care facility), [facility]. Onset of symptoms was November 20, 2017. Risk Assessment: Do you want to hurt yourself or someone else? Patient reports no desire to harm self or others. Initial Sepsis Screen: Does the patient meet any 2 criteria? No. Patient's initial sepsis screen is negative. Does the patient have a suspected source of infection? No. Patient's initial sepsis screen is negative. Care prior to arrival: None. 11:07 Method Of Arrival: EMS: [facility] 11:07 Acuity: LORENZA 3 hj Triage Assessment: 11:14 General: Appears in no apparent distress. uncomfortable, obese, Behavior is calm, hj cooperative, appropriate for age. Pain: Denies pain. EENT: No signs and/or symptoms were reported regarding the EENT system. Neuro: Level of Consciousness is awake, alert, obeys commands, Oriented to person, place, time, situation, Appropriate for age. Cardiovascular: Capillary refill < 3 seconds Patient's skin is warm and dry. Respiratory: Reports shortness of breath labored breathing Airway is patent Respiratory effort is even, labored, Respiratory pattern is regular, symmetrical, Breath sounds are diminished Breath sounds with wheezes Onset: The symptoms/episode began/occurred today, the patient has mild shortness of breath. GI: No signs and/or symptoms were reported involving the gastrointestinal system. : No signs and/or symptoms were reported regarding the genitourinary system. Derm: No signs and/or symptoms reported regarding the dermatologic system. Musculoskeletal: No signs and/or symptoms reported regarding the musculoskeletal system. Historical: - Allergies: 11:13 Ciprofloxacin HCl; hj 11:13 Sulfa (Sulfonamide Antibiotics); hj - Home Meds: 11:13 Aricept 10 mg Oral tab 1 tab once daily [Active]; aspirin 81 mg Oral chew 1 tab once hj daily [Active]; cholecalciferol (vitamin D3) 1,000 unit Oral tab daily [Active]; cranberry Oral twice a day [Active]; Lactobacillus acidophilus Oral cap nightly [Active]; levothyroxine 100 mcg tab 1 tab once daily [Active]; metoprolol tartrate 50 mg Oral tab 1 tab once daily [Active]; potassium chloride 20 mEq Oral TbTQ 1 tab once daily for Hypokalemia [Active]; rosuvastatin 5 mg Oral tab 1 tab once daily [Active]; sertraline 25 mg Oral tab 1 tab once daily [Active]; tamsulosin 0.4 mg Oral cp24 1 cap once daily [Active]; Vitamin C 500 mg Oral tab every morning [Active]; - PMHx: 11:13 Atrial Fib; Dementia; GI Bleed; hypokalemia, hypothyroidism; hj - PSHx: 11:13 Unable to obtain; hj - Immunization history:: Adult Immunizations up to date. - Social history:: Smoking status: Patient/guardian denies using tobacco, Patient/guardian denies using alcohol. - Ebola Screening: : Patient negative for fever greater than or equal to 101.5 degrees Fahrenheit, and additional compatible Ebola Virus Disease symptoms Patient denies exposure to infectious person Patient denies travel to an Ebola-affected area in the 21 days before illness onset. Screenin:16 Abuse screen: Denies threats or abuse. Denies injuries from another. Nutritional hj screening: No deficits noted. Tuberculosis screening: No symptoms or risk factors identified. Fall Risk None identified. Assessment: 11:16 Cardiovascular: Rhythm is atrial fibrillation. hj 11:17 Reassessment: see triage for assessment;. hj 12:53 Reassessment: Patient and/or family updated on plan of care and expected duration. Pain hj level reassessed. Patient is alert, oriented x 3, equal unlabored respirations, skin warm/dry/pink. awaiting results and POC; Patient states feeling better. Patient states symptoms have improved. 13:56 Reassessment: Patient and/or family updated on plan of care and expected duration. Pain hj level reassessed. Patient is alert, oriented x 3, equal unlabored respirations, skin warm/dry/pink. for admit; on hold on the phone for 12 minutes for report;'. Vital Signs: 11:17 BP 142 / 90; Pulse 80; Resp 18; Temp 98.7(O); Pulse Ox 99% on 2 lpm NC; Weight 81.65 hj kg; Height 5 ft. 8 in. (172.72 cm); Pain 0/10; 12:53 BP 137 / 87; Pulse 65; Resp 18; Pulse Ox 100% on 2 lpm NC; hj 13:56 BP 145 / 95; Pulse 115; Resp 18; Pulse Ox 100% on 2 lpm NC; hj 14:58 BP 126 / 92; Pulse 98; Resp 18; Pulse Ox 100% on R/A; hj 11:17 Body Mass Index 27.37 (81.65 kg, 172.72 cm) ED Course: 11:06 Patient arrived in ED. hj 11:09 Brian Terrazas MD is Attending Physician. gs 11:10 Triage completed. hj 11:14 EKG done, by explosive ordnance disposal technician. reviewed by Brian Terrazas MD. at1 11:16 Arm band placed on left wrist. hj 11:16 Patient has correct armband on for positive identification. Placed in gown. Bed in low hj position. Call light in reach. Side rails up X 1. 11:17 Joey Wang, RN is Primary Nurse. hj 11:56 Urine collected: clean catch specimen, cloudy, tremaine colored. jb1 12:58 XRAY Chest (1 view) In Process Unspecified. EDMS 12:58 Grabiel Coles MD is Hospitalizing Provider. gs 14:19 EKG done, by explosive ordnance disposal technician. reviewed by Brian Terrazas MD. sm3 15:13 No provider procedures requiring assistance completed. Patient admitted, IV remains in hj place. intact. Administered Medications: 12:58 Drug: Potassium Effervescent Tablet 50 mEq Route: PO; hj 13:31 Follow up: Response: No adverse reaction hj 13:30 Drug: Lasix 20 mg Route: IVP; Site: right antecubital; hj 13:31 Follow up: Response: No adverse reaction hj 13:30 Drug: Rocephin - (cefTRIAXone) 1 grams Route: IVPB; Infused Over: 30 mins; Site: right hj antecubital; 13:31 Follow up: IV Status: Completed infusion hj 14:15 Drug: Lopressor 5 mg Route: IVP; Site: right antecubital; hj 14:25 Follow up: Response: No adverse reaction hj 14:29 Drug: Tobramycin 80 mg Route: IVPB; Infused Over: 30 mins; Site: right antecubital; hj 14:30 Follow up: IV Status: Completed infusion Outcome: 12:59 Decision to Hospitalize by Provider. 15:14 Admitted to Med/surg accompanied by tech, family with patient, via stretcher, room 201, with oxygen, with chart, Report called to Thais Boggs 15:14 Condition: stable 15:14 Instructed on the need for admit, Demonstrated understanding of instructions. 15:14 Patient left the ED. Signatures: Dispatcher [employer] EDMS [place] jb1 Gina murcia, two needle machine operator EKG Tat1 Joey Wang, RONALDO RN Brian Rodriguez MD MD gs Montes, Shakira sm3
--- NOTE | 2017-11-20 13:00 | EDPHYS ---
Physician Documentation [facility] Name: Jocy Ledesma Age: 87 yrs Sex: Female : 1930 Arrival Date: 11/20/2017 Time: 11:06 Bed 3 Private MD: ED Physician Brian Terrazas HPI: 11/20 14:53 This 87 yrs old Female presents to ER via EMS with complaints of Breathing gs Difficulty, Shortness Of Breath. 14:53 The patient has shortness of breath at rest. Onset: The symptoms/episode began/occurred gs acutely, this morning. Duration: The symptoms are continuous, but are markedly better than the original presentation. The patient's shortness of breath is aggravated by exertion. Associated signs and symptoms: Pertinent negatives: chest pain, fever. Severity of symptoms: At their worst the symptoms were severe in the emergency department the symptoms have improved markedly. The patient has experienced similar episodes in the past, a few times. The patient has been recently been admitted at [facility], was discharged last month. Historical: - Allergies: 11:13 Ciprofloxacin HCl; hj 11:13 Sulfa (Sulfonamide Antibiotics); hj - Home Meds: 11:13 Aricept 10 mg Oral tab 1 tab once daily [Active]; aspirin 81 mg Oral chew 1 tab once hj daily [Active]; cholecalciferol (vitamin D3) 1,000 unit Oral tab daily [Active]; cranberry Oral twice a day [Active]; Lactobacillus acidophilus Oral cap nightly [Active]; levothyroxine 100 mcg tab 1 tab once daily [Active]; metoprolol tartrate 50 mg Oral tab 1 tab once daily [Active]; potassium chloride 20 mEq Oral TbTQ 1 tab once daily for Hypokalemia [Active]; rosuvastatin 5 mg Oral tab 1 tab once daily [Active]; sertraline 25 mg Oral tab 1 tab once daily [Active]; tamsulosin 0.4 mg Oral cp24 1 cap once daily [Active]; Vitamin C 500 mg Oral tab every morning [Active]; - PMHx: 11:13 Atrial Fib; Dementia; GI Bleed; hypokalemia, hypothyroidism; hj - PSHx: 11:13 Unable to obtain; hj - Immunization history:: Adult Immunizations up to date. - Social history:: Smoking status: Patient/guardian denies using tobacco, Patient/guardian denies using alcohol. - Ebola Screening: : Patient negative for fever greater than or equal to 101.5 degrees Fahrenheit, and additional compatible Ebola Virus Disease symptoms Patient denies exposure to infectious person Patient denies travel to an Ebola-affected area in the 21 days before illness onset. ROS: 14:53 All other systems are negative. gs Exam: 14:53 Head/Face: Normocephalic, atraumatic. Eyes: Pupils equal round and reactive to light, gs extra-ocular motions intact. Lids and lashes normal. Conjunctiva and sclera are non-icteric and not injected. Cornea within normal limits. Periorbital areas with no swelling, redness, or edema. ENT: Nares patent. No nasal discharge, no septal abnormalities noted. Tympanic membranes are normal and external auditory canals are clear. Oropharynx with no redness, swelling, or masses, exudates, or evidence of obstruction, uvula midline. Mucous membranes moist. Neck: Trachea midline, no thyromegaly or masses palpated, and no cervical lymphadenopathy. Supple, full range of motion without nuchal rigidity, or vertebral point tenderness. No Meningismus. Chest/axilla: Normal chest wall appearance and motion. Nontender with no deformity. No lesions are appreciated. 14:53 Abdomen/GI: Soft, non-tender, with normal bowel sounds. No distension or tympany. No guarding or rebound. No evidence of tenderness throughout. Back: No spinal tenderness. No costovertebral tenderness. Full range of motion. Skin: Warm, dry with normal turgor. Normal color with no rashes, no lesions, and no evidence of cellulitis. MS/ Extremity: Pulses equal, no cyanosis. Neurovascular intact. Full, normal range of motion. Neuro: Awake and alert, GCS 15, oriented to person, place, time, and situation. Cranial nerves II-XII grossly intact. Motor strength 5/5 in all extremities. Sensory grossly intact. Cerebellar exam normal. Normal gait. 14:53 Constitutional: The patient appears alert, awake. 14:53 Cardiovascular: Rate: normal, Rhythm: irregularly irregular, Pulses: no pulse deficits are appreciated, Heart sounds: normal. 14:53 ECG was reviewed by the Attending Physician. 14:53 Respiratory: mild respiratory distress is noted, Respirations: tachypnea, Breath sounds: decreased breath sounds, that are moderate, are located in both bases. Vital Signs: 11:17 BP 142 / 90; Pulse 80; Resp 18; Temp 98.7(O); Pulse Ox 99% on 2 lpm NC; Weight 81.65 hj kg; Height 5 ft. 8 in. (172.72 cm); Pain 0/10; 12:53 BP 137 / 87; Pulse 65; Resp 18; Pulse Ox 100% on 2 lpm NC; hj 13:56 BP 145 / 95; Pulse 115; Resp 18; Pulse Ox 100% on 2 lpm NC; hj 14:58 BP 126 / 92; Pulse 98; Resp 18; Pulse Ox 100% on R/A; hj 11:17 Body Mass Index 27.37 (81.65 kg, 172.72 cm) hj MDM: 11:11 Patient medically screened. 14:53 Differential diagnosis: CHF exacerbation, Chronic Obstructive Pulmonary Disease gs Myocardial Infarction pneumonia. Data reviewed: vital signs, nurses notes. Physician consultation: A Sanket CHEN regarding patient's condition, and will see patient in inpatient room. 14:53 ED course: pt has increase hr, ekg afib with rvr given lopressor modest improvement gs discussed with dr segura will handle. 11/20 11:12 Order name: Basic Metabolic Panel; Complete Time: 12:20 11/20 11:12 Order name: CBC with Diff; Complete Time: 12:20 11/20 11:12 Order name: Magnesium; Complete Time: 12:20 11/20 11:12 Order name: NT PRO-BNP; Complete Time: 12:20 11/20 11:12 Order name: PT-INR; Complete Time: 12:20 11/20 11:12 Order name: Troponin (emerg Dept Use Only); Complete Time: 12:52 11/20 11:12 Order name: XRAY Chest (1 view); Complete Time: 13:30 11/20 11:57 Order name: Urine Culture jb1 11/20 11:57 Order name: Urine Microscopic Only; Complete Time: 12:52 [facility] 11/20 11:58 Order name: Urine Dipstick--Ancillary (enter results); Complete Time: 12:52 eb 11/20 12:58 Order name: Blood Culture* 11/20 13:04 Order name: Troponin I EDIA 07/16 13:04 Order name: Troponin I EDMS 11/20 13:04 Order name: Troponin I [facility] 11/20 11:12 Order name: EKG; Complete Time: 11:13 11/20 11:12 Order name: Cardiac monitoring; Complete Time: 11:18 11/20 11:12 Order name: EKG - Nurse/Tech; Complete Time: 11:18 11/20 11:12 Order name: IV Saline Lock; Complete Time: 11:18 11/20 11:12 Order name: Labs collected and sent; Complete Time: 12:55 11/20 11:12 Order name: O2 Per Protocol; Complete Time: 11:18 11/20 11:12 Order name: O2 Sat Monitoring; Complete Time: 11:18 11/20 11:12 Order name: Urine Dipstick-Ancillary (obtain specimen); Complete Time: 11:57 11/20 13:04 Order name: Consistent Carb (ADA) [address] [facility] 11/20 13:32 Order name: Muhammad; Complete Time: 13:32 EC:53 Rate is 130 beats/min. Rhythm is regular. QRS interval is normal. T waves are gs Flattened. Clinical impression: Abnormal EKG without significant change and Atrial Fibrillation. Interpreted by me. Administered Medications: 12:58 Drug: Potassium Effervescent Tablet 50 mEq Route: PO; hj 13:31 Follow up: Response: No adverse reaction hj 13:30 Drug: Lasix 20 mg Route: IVP; Site: right antecubital; hj 13:31 Follow up: Response: No adverse reaction hj 13:30 Drug: Rocephin - (cefTRIAXone) 1 grams Route: IVPB; Infused Over: 30 mins; Site: right hj antecubital; 13:31 Follow up: IV Status: Completed infusion hj 14:15 Drug: Lopressor 5 mg Route: IVP; Site: right antecubital; hj 14:25 Follow up: Response: No adverse reaction hj 14:29 Drug: Tobramycin 80 mg Route: IVPB; Infused Over: 30 mins; Site: right antecubital; hj 14:30 Follow up: IV Status: Completed infusion hj Disposition: 14:53 Critical Care:. Disposition: 11/20/17 12:59 Hospitalization ordered by Grabiel Segura for Inpatient Admission. Preliminary diagnosis are Acute combined systolic (congestive) and diastolic (congestive) heart failure, Cystitis, Lobar pneumonia, unspecified organism. - Bed requested for Telemetry/MedSurg (Inpatient). - Status is Inpatient Admission. hj - Condition is Stable. - Problem is an acute exacerbation. - Symptoms have improved. UTI on Admission? Yes Critical care time excluding procedures: 14:53 Critical care time: Bedside Care: 10 minutes, Consultation: 10 minutes, Family gs Intervention: 10 minutes. Total time: 30 minutes Signatures: Dispatcher [employer] EDIA Joey Wang RN RN hj Starr, Gregory, MD MD gs Botello, Elizabeth eb Corrections: (The following items were deleted from the chart) 13:03 12:59 Hospitalization Ordered by A Sanket HCEN for Inpatient Admission. Preliminary eb diagnosis is Acute combined systolic (congestive) and diastolic (congestive) heart failure; Cystitis. Bed requested for Telemetry/MedSurg (Inpatient). Status is Inpatient Admission. Condition is Stable. Problem is an acute exacerbation. Symptoms have improved. UTI on Admission? Yes. 13:31 13:03 11/20/2017 12:59 Hospitalization Ordered by A Sanket CHEN for Inpatient Admission. gs Preliminary diagnosis is Acute combined systolic (congestive) and diastolic (congestive) heart failure; Cystitis. Bed requested for Telemetry/MedSurg (Inpatient). Status is Inpatient Admission. Condition is Stable. Problem is an acute exacerbation. Symptoms have improved. UTI on Admission? Yes. eb 13:37 13:31 11/20/2017 12:59 Hospitalization Ordered by A Sanket CHEN for Inpatient Admission. eb Preliminary diagnosis is Acute combined systolic (congestive) and diastolic (congestive) heart failure; Cystitis; Lobar pneumonia, unspecified organism. Bed requested for Telemetry/MedSurg (Inpatient). Status is Inpatient Admission. Condition is Stable. Problem is an acute exacerbation. Symptoms have improved. UTI on Admission? Yes. 15:14 13:37 11/20/2017 12:59 Hospitalization Ordered by A Sanket CHEN for Inpatient Admission. hj Preliminary diagnosis is Acute combined systolic (congestive) and diastolic (congestive) heart failure; Cystitis; Lobar pneumonia, unspecified organism. Bed requested for Telemetry/MedSurg (Inpatient). Status is Inpatient Admission. Condition is Stable. Problem is an acute exacerbation. Symptoms have improved. UTI on Admission? Yes. eb
[2017-11-20] MEDS ORDERED: ALBUTEROL 2.5 MG/3 ML NEB SOL NEB PRN (13:01)
[2017-11-20] MEDS ORDERED: ACETAMINOPHEN 500 MG TAB PO PRN (13:01)
[2017-11-20] MEDS ORDERED: IPRATROPIUM BROM 0.5MG/2.5ML NEB PRN (13:01)
[2017-11-20] MEDS ORDERED: CEFTRIAXONE/SWI 1gm 1 GM/10 ML SYR ONE (13:05)
[2017-11-20] MEDS ORDERED: FUROSEMIDE 20 MG/ 2ML VIAL ONE (13:05)
[2017-11-20] MEDS ORDERED: POTASSIUM 25 MEQ EFFERV TAB ONE (13:05)
--- NOTE | 2017-11-20 13:18 | RAD REPORT ---
EXAM DESCRIPTION: RAD - Chest Single View - 11/20/2017 1:01 pm CLINICAL HISTORY: Shortness of breath, difficulty breathing, decreased O2 saturation COMPARISON: Portable chest October 15, 2017, CT chest October 12, 2017 TECHNIQUE: AP portable chest image was obtained 1254 hours . FINDINGS: Lung volumes are relatively low. Interstitial stranding is present in the right lung base slightly increased over comparison. This is only partly due to shallow inspiration. Right base infilt rate is suspected. Heart and vasculature are normal. No pneumothorax or large pleural effusion. No ac la posta bone process. No acute aortic findings suspected. IMPRESSION: Patient has chronic interstitial lung disease accentuated by shallow inspiration. Lung markings are more pronounced in the right base and considered suspicious for mild or early infil trate.
[2017-11-20] MEDS: FUROSEMIDE 20 MG/ 2ML VIAL IV SCH ×2 (14:00→20:50)
[2017-11-20] MEDS ORDERED: IPRATROPIUM BROM 0.5MG/2.5ML ONE (14:05)
[2017-11-20] MEDS ORDERED: ALBUTEROL 2.5 MG/3 ML NEB SOL ONE (14:05)
[2017-11-20] MEDS ORDERED: TOBRAMYCIN INJ 80 MG in NA CHLORIDE 0.9% 100 ML IV ONE (14:15)
[2017-11-20] MEDS ORDERED: METOPROLOL TARTRATE 5 MG/5 ML INJ IV ONE (14:20)
--- NOTE | 2017-11-20 15:15 | EKG ---
Test Date: 2017-11-20 Test Time: 14:10:17 Orthodontic Technician Assistant: BERT MEASUREMENT RESULTS: Intervals: Rate: 130 NM: QRSD: 76 QT: 336 QTc: 494 Gleason: P: NM: QRS: -25 T: 27 INTERPRETIVE STATEMENTS: Atrial flutter with variable AV block Low voltage QRS Inferior infarct, age undetermined Cannot rule out Anterior infarct, age undetermined Abnormal ECG Compared to ECG 10/11/2017 22:56:45 Rate has increased Low QRS voltage now present Myocardial infarct finding still present Electronically Signed On 11-20-17 15:15:29 CDT by Ivan Carver
--- NOTE | 2017-11-20 16:18 | EKG ---
Test Date: 2017-11-20 Test Time: 11:00:21 Agriculture Laboratory Technician: CLIFF MEASUREMENT RESULTS: Intervals: Rate: 85 AR: QRSD: 70 QT: 282 QTc: 335 [place]: P: AR: QRS: -13 T: -52 INTERPRETIVE STATEMENTS: Atrial fibrillation with premature ventricular or aberrantly conducted complexes Inferior infarct, age undetermined ST & T wave abnormality, consider lateral ischemia Abnormal ECG Compared to ECG 10/11/2017 22:56:45 Myocardial infarct finding still present Electronically Signed On 11-20-17 16:18:01 CDT by vIan Carver
[2017-11-20] MEDS ORDERED: Meropenem 1 GM/100 ML BAG ONE (20:39)
[2017-11-20] MEDS ORDERED: NA CHLORIDE 0.9% 100 ML ONE ×2 (20:42→20:48)
[2017-11-20] MEDS: ENOXAPARIN 40 MG/0.4 ML SQ SCH (20:50)
[2017-11-20] MEDS: TAMSULOSIN 0.4 MG SR CAP PO SCH (20:51)
[2017-11-20] MEDS ORDERED: Meropenem 1000 MG/VIAL IV SCH (21:00)
[2017-11-20] MEDS ORDERED: HOME MED 1 EA UNK (Donepezil Hcl [Aricept] 1 TAB) PO SCH (21:00)
[2017-11-20] MEDS ORDERED: CRANBERRY FRUIT PO SCH (21:00)
[2017-11-20] MEDS ORDERED: HOME MED 1 EA UNK (L.Acidoph,Paracasei, B.Lactis [Probiotic] 1 CAP) PO SCH (21:00)
[2017-11-21 05:00] LABS: Absolute Lymphocytes (CBC) 0.5 K/uL (0.7-4.9); Absolute Monocytes 0.5 K/uL (0.1-1.3); Absolute Neutrophil 5.8 K/uL (1.8-8.0); Basophils % 0.2 % (0-1.3); Eosinophils % 0.2 % (0-4.4); Hematocrit 32.5 % (36.0-45.0); Lymphocytes % 7.3 % (15.3-44.8); MCH 28.2 pg (27.0-35.0); MPV 9.5 fL (7.6-11.3); Monocytes % 7.2 % (3.3-12.3); RBC Red Blood Cell Count 3.92 M/uL (3.86-4.86)
[2017-11-21 05:15] LABS: BUN Blood Urea Nitrogen 13 mg/dL (7-18); Bicarbonate 31 mmol/L (21-32); Glucose Level 115 mg/dL (74-106); Magnesium 2.1 mg/dL (1.8-2.4); Potassium 3.6 mmol/L (3.5-5.1); Sodium Level 142 mmol/L (136-145)
[2017-11-21] MEDS: LEVOTHYROXINE SOD 0.1 MG TAB PO SCH (05:53)
--- NOTE | 2017-11-21 05:54 | HP ---
Date of Admission: 11/20/2017 Chief Complaint: Shortness of breath. History Of Present Illness: This is an 87-year-old female patient, living at [facility], was sent to the emergency room with complaints of shortness of breath. After she was evaluated in ER, I was contacted requesting admission to the hospital with congestive heart failure, urinary trac t infection, and possibly pneumonia. I saw her this evening. She denies any fever or chills. Denie s any expectoration. No nausea, no vomiting. Allergies: CIPRO AND SULFA. Medications: List reviewed. Review of Systems: Respiratory: As mentioned above. All other systems reviewed and negative. DICTATION ENDS HERE. FATIMAH/MODL Voice ID: [id number]
[2017-11-21 06:00] LABS: Blood Morphology Comment NOT SEEN (NOT SEEN); Platelet Estimate ADEQ
--- NOTE | 2017-11-21 06:30 | HP ---
Date of Admission: 11/20/2017 Chief Complaint: Shortness of breath. History Of Present Illness: This is an 87-year-old female patient, living at [facility], was sent to the emergency room with complaints of shortness of breath. After she was evaluated in ER, I was contacted requesting admission to the hospital with congestive heart failure, urinary tract infection , and possibly pneumonia. I saw her this evening. She denies any fever or chills. Denies any expectoration. No nausea, no vomiting. Allergies: CIPRO AND SULFA. Review of Systems: Respiratory: As mentioned above. Constitutional: Generalized weakness. All other systems reviewed and negative. Medications: List reviewed. Past Medical History: Significant for hypertension, hyperlipidemia, atrial fibrillation, hypothyroidism, gastroesophageal reflux disease, osteoarthritis at multiple sites, vitamin D deficiency, recurrent urinary tract infections and last 2 infections she had was with E coli which was resistant bacteria, ESBL requiring IV meropenem therapy. Past Surgical History: Hysterectomy, cataract surgery, bladder suspension, hemorrhoid surgery, Watchman device placement for atrial fibrillation. Family History: Mother had Alzheimer disease, diabetes, Parkinson disease. Brother had diabetes. Social History: Negative for smoking and alcohol use. The patient has prior history of smoking, but has not smoked in long time. Physical Examination: VITAL SIGNS: Last temperature 97.6, pulse rate 98, respiratory rate 18, blood pressure 139/95, oxygen saturation 98%. Her weight 190 pounds, height 5 feet 8 inches. General: Awake, alert, oriented, not in distress. HEENT: Head atraumatic, normocephalic. Conjunctivae nonerythematous. Sclerae white. Mouth, no thrush or edema noted. Ears/Nose, no mass, lesion, discharge noted. Neck: Supple. No JVD, lymph nodes, bruit, thyromegaly noted. Lungs: Minimum bilateral rales noted in lower lung horta, not in respiratory distress. Heart: Normal heart sounds, no murmur or gallop. Abdomen: Soft, bowel sounds normal. No guarding, rigidity, tenderness, mass, hepatosplenomegaly, distention, or bruit noted. Extremities: No leg edema. No calf tenderness. Skin: No rash, ulcer, cellulitis. Lymphatics: No lymph node enlargement in neck, supraclavicular, infraclavicular region. Neuro: No focal neurological deficit. Chest: Unremarkable. External Genitalia: Deferred. Rectal: Deferred. Laboratory Data: Chest x-ray shows increased bilateral lung markings and possibility of infiltrate in the right lung base. EKG, atrial fibrillation. White count 8.7, hemoglobin 12.6, platelets 218. Sodium 142, potassium 3.4, chloride 106, bicarb 31, BUN 10, creatinine 0.80, glucose 113, magnesium 2.4, troponin 0.03 on the first set, second set 0.02. ProBNP 19,344. Urinalysis positive for nitrite, 3+ esterase, wbc more than 50, bacteria more than 50, 1+ protein. Her last echocardiogram from September 2017 had shown ejection fraction about 45%-47%. Impression: 1. Congestive heart failure, acute, systolic. 2. Atrial fibrillation, chronic. 3. Urinary tract infection. 4. Hypokalemia. 5. Generalized weakness. 6. Hypertension. 7. Hypothyroidism. 8. Hyperlipidemia. 9. Gastroesophageal reflux disease. 10. Osteoarthritis, multiple sites. 11. Vitamin D deficiency. Plan: Admit the patient to hospital for further evaluation and management of this problem. The patient is appropriate for inpatient and is expected to spend 2 midnights in hospital. Fall precaution was ordered. The patient is not a candidate for long-term anticoagulation therapy because of GI bleeding problem in the past and that is the whole reason why she had Watchman device in place. We will go ahead and do Lovenox 40 mg subcutaneous injection at bedtime and start patient on IV meropenem. We will follow up on urine culture results. She has received Rocephin and tobramycin so far in the emergency room. We will give Lasix 20 mg IV twice a day, monitor electrolytes, and we will repeat echocardiogram tomorrow. Monitor intake and output. Muhammad catheter was placed and we will remove Muhammad catheter in next 24-48 hours. Continue metoprolol. She also received a dose of metoprolol in emergency room as well. She had atrial fibrillation with rapid ventricular rate and was hemodynamically stable in emergency room. Currently, she is stable as well with controlled heart rate. Details and plan of treatment discussed with her. I also talked to her about advance directives and she informed me that at her age with her overall health and condition in the event of cardiopulmonary arrest, she does not want any heroic measures like CPR, defibrillation or ventilator support and we will write DNR order in the chart. FATIMAH/MARSHALL Voice ID: [id number] MTDD
[2017-11-21] MEDS ORDERED: SERTRALINE HCL 50 MG TAB PO SCH (09:00)
[2017-11-21] MEDS ORDERED: POTASSIUM CL SA 10 MEQ TAB PO ONE (09:00)
[2017-11-21] MEDS: CRANBERRY FRUIT EXTRACT 200 MG CAP PO SCH ×2 (09:00→21:43)
[2017-11-21] MEDS: ASPIRIN 81 MG CHEWABLE TABLET PO SCH (10:03)
[2017-11-21] MEDS: VITAMIN D 1000 UNIT TAB PO SCH (10:03)
[2017-11-21] MEDS: FUROSEMIDE 20 MG/ 2ML VIAL IV SCH ×2 (10:04→17:43)
[2017-11-21] MEDS: Meropenem 1,000 MG in NA CHLORIDE 0.9% 100 ML IV SCH ×2 (10:04→21:49)
[2017-11-21] MEDS: METOPROLOL XL 50 MG TAB PO SCH (10:04)
--- NOTE | 2017-11-21 14:25 | ECHO ---
HEIGHT: 5 ft 8 in WEIGHT: 192 lb 1.6 oz DATE OF STUDY: 11/21/[address]: Kiet Coles MD 2-DIMENSIONAL: YES M.MODE: YES DOPPLER: YES COLOR FLOW: YES TDS: PORTABLE: DEFINITY: BUBBLE STUDY: DIAGNOSIS: CONGESTIVE HEART FAILURE CARDIAC HISTORY: CATHERIZATION: NO SURGERY: NO PROSTHETIC VALVE: NO PACEMAKER: NO MEASUREMENTS (cm) DIASTOLIC (NORMALS) SYSTOLIC (NORMALS) IVSd 1.2 (0.6-1.2) LA Diam 4.5 (1.9-4.0) LVEF 46% LVIDd 4.2 (3.5-5.7) LVIDs 3.2 (2.0-3.5) %FS 23% LVPWd 1.2 (0.6-1.2) Ao Diam 2.7 (2.0-3.7) 2 DIMENSIONAL ASSESSMENT: RIGHT ATRIUM: NORMAL LEFT ATRIUM: DILATED RIGHT VENTRICLE: NORMAL LEFT VENTRICLE: NORMAL SIZE TRICUSPID VALVE: NORMAL MITRAL VALVE: MITRAL ANNULAR CALCIFICATION PULMONIC VALVE: NORMAL AORTIC VALVE: SCLEROSIS PERICARDIAL EFFUSION: NONE AORTIC ROOT: NORMAL LEFT VENTRICULAR WALL MOTION: MILD GLOBAL HYPOKINESIS DOPPLER/COLOR FLOW: MILD MITRAL AND TRICUSPID REGURGITATION. NORMAL RIGHT VENTRICULAR SYSTOLIC PRESSURE. COMMENTS: MILD MITRAL AND TRICUSPID REGURGITATION. MILD GLOBAL HYPOKINESIS. EJECTION FRACTION 46-50%. MITRAL ANNULAR CALCIFICATION. AORTIC SCLEROSIS. NO CHANGE SINCE SEPTEMBER 2017. TECHNOLOGIST: ALEXUS ABBOTT
[2017-11-21] MEDS: ENOXAPARIN 40 MG/0.4 ML SQ SCH (21:41)
[2017-11-21] MEDS: LACTOBACILLUS/ACIDOPHILUS TAB PO SCH (21:42)
[2017-11-21] MEDS: TAMSULOSIN 0.4 MG SR CAP PO SCH (21:42)
[2017-11-21] MEDS: DONEPEZIL HCL 5 MG TAB PO SCH (21:43)
--- NOTE | 2017-11-21 22:36 | PN ---
Date of Progress Note: 11/21/2017 Subjective: The patient was seen this morning for followup. She was lying in bed. Her daughter was present with her. Denied any complaints overnight. Objective: Vital Signs: Reviewed. HEENT Examination: Unremarkable. Lungs: Clear to auscultation. Heart: Heart sounds normal. Abdomen: Soft. Bowel sounds normal. No guarding, rigidity, tenderness, or distention. Extremities: No leg edema. Laboratory Data: White count 6.8, hemoglobin 11.1, platelets 195. Sodium 142, potassium 3.6, chloride 105, bicarb 31, BUN 13, creatinine 0.60, glucose 115. Impression: 1. Congestive heart failure, acute, systolic. 2. Rule out pneumonia. 3. Urinary tract infection. 4. Atrial fibrillation, chronic. Plan: We will continue current medication antibiotic, which is meropenem. Follow up on echocardiogram results. Continue Lasix. We will continue Lovenox per order. I will see her tomorrow for followup. The patient's daughter had multiple questions; all of her questions were answered. During last hospital admission, she was released from [facility] and [facility] has now gone to [facility], and she is under care of Dr. Gray at this facility. The patient's daughter says that she would really like for patient to go back to [facility] if at all possible, but I informed her that it all depends on her final results on the urine culture , because if she needs IV antibiotics then she will have to go to [facility] facility until she gets done with antibiotics with a PICC line and she understands that. I also informed the patient's daughter about the patient's decision of DNR as per my discussion with her yesterday and she did confirm that again today when I was talking to patient's daughter. The patient's daughter also says that the family had discussion with the patient about DNR and that is their understanding also. FATIMAH/MODL Voice ID: [id number] Report ID: [id number] TABITHA
[2017-11-22 05:48] LABS: Potassium 3.5 mmol/L (3.5-5.1)
[2017-11-22] MEDS ORDERED: POTASSIUM 25 MEQ EFFERV TAB PO ONE (06:15)
[2017-11-22] MEDS: LEVOTHYROXINE SOD 0.1 MG TAB PO SCH (06:15)
--- NOTE | 2017-11-22 08:58 | RAD REPORT ---
EXAM DESCRIPTION: RAD - Chest Single View - 11/22/2017 8:20 am CLINICAL HISTORY: CHF COMPARISON: November 20 TECHNIQUE: AP portable chest image was obtained 0810 hours . FINDINGS: No new mass or consolidation. Continued extensive interstitial lung disease noted, most pr onounced in the medial right base. Medial right base is not clearly different from prior imaging. Hea rt size is normal. Upper lobe vasculature within normal limits for portable imaging. Trachea is midli ne. No pneumothorax or enlarging pleural fluid collection. No acute aortic findings suspected. IMPRESSION: Extensive interstitial lung disease most pronounced in the medial right base. Chest findings are stable from November 20.
[2017-11-22] MEDS ORDERED: LISINOPRIL 5 MG TAB PO SCH (09:00)
[2017-11-22] MEDS: SERTRALINE HCL 50 MG TAB PO SCH (09:50)
[2017-11-22] MEDS: ASPIRIN 81 MG CHEWABLE TABLET PO SCH (09:50)
[2017-11-22] MEDS: VITAMIN D 1000 UNIT TAB PO SCH (09:50)
[2017-11-22] MEDS: METOPROLOL XL 50 MG TAB PO SCH (09:50)
[2017-11-22] MEDS: FUROSEMIDE 20 MG/ 2ML VIAL IV SCH ×2 (09:51→17:08)
[2017-11-22] MEDS: Meropenem 1,000 MG in NA CHLORIDE 0.9% 100 ML IV SCH ×2 (09:51→21:25)
[2017-11-22] MEDS: CRANBERRY FRUIT EXTRACT 200 MG CAP PO SCH ×2 (09:51→21:24)
[2017-11-22] MEDS ORDERED: NA CHLORIDE 0.9% 50 ML ONE (21:17)
[2017-11-22] MEDS: LACTOBACILLUS/ACIDOPHILUS TAB PO SCH (21:24)
[2017-11-22] MEDS: TAMSULOSIN 0.4 MG SR CAP PO SCH (21:25)
[2017-11-22] MEDS: DONEPEZIL HCL 5 MG TAB PO SCH (21:25)
[2017-11-22] MEDS: ENOXAPARIN 40 MG/0.4 ML SQ SCH (21:26)
--- NOTE | 2017-11-22 22:57 | PN ---
Date of Progress Note: 11/22/2017 Subjective: The patient was seen this morning for followup. Her daughter was present with her at [facility]. The patient denies any specific complaints this morning. Objective: Vital Signs: Reviewed. HEENT Examination: Unremarkable. Lungs: Clear to auscultation. Heart: Heart sounds normal. Abdomen: Soft. Bowel sounds normal. No guarding, rigidity, tenderness, or distention. Extremity E xam: No leg edema. Laboratory Data: Sodium 141, potassium 3.5, chloride 104, bicarb 33, BUN 18, creatinine 0.70, glucos e 80. Echocardiogram shows ejection fraction 46%. Urine culture results came back, it is E. coli an d organism is ESBL. Blood culture remains negative. Impression: 1.Urinary tract infection, organism Escherichia coli. 2.Congestive heart failure, acute, systolic. 3.Hypertension. 4.Chronic atrial fibrillation. Plan: We will go ahead and continue meropenem. Order was placed for PICC line and Social Service to assist the patient with [facility] placement for IV antibiotic therapy. We will add lisinopril 5 mg p.o. daily, continue Lasix, and get a chest x-ray done today. We will follow up on the results. Depending on that, we will decide if we can change Lasix from IV to oral today or tomorrow. The elise ent's daughter had multiple questions; all of her questions were answered, and her biggest question a nd dilemma is if she should take the patient to [facility] and keep her there from now on or take h er back to assisted care facility, and I tried to help her answering this question as best as I could and she will think about it and make appropriate decisions. She will work with Social Service for [facility] placement. Possible disch arge on Monday. FATIMAH/MODL Voice ID: [id number] Report ID: [id number]
[2017-11-23] MEDS: LEVOTHYROXINE SOD 0.1 MG TAB PO SCH (05:23)
[2017-11-23 05:51] LABS: Potassium 3.7 mmol/L (3.5-5.1)
[2017-11-23] MEDS ORDERED: POTASSIUM CL SA 10 MEQ TAB PO ONE (05:56)
--- NOTE | 2017-11-23 07:53 | RAD REPORT ---
EXAM DESCRIPTION: RAD - Chest Single View - 11/23/2017 12:57 am CLINICAL HISTORY: Device placement PICC line placement COMPARISON: November 22 FINDINGS: A PICC line has been inserted with its tip in the distal superior vena cava. Mild improvement in the bilateral interstitial lung opacities has occurred IMPRESSION: PICC line with its tip in the distal superior vena cava
[2017-11-23] MEDS: Meropenem 1,000 MG in NA CHLORIDE 0.9% 100 ML IV SCH ×2 (10:45→22:17)
[2017-11-23] MEDS: POTASSIUM CL SA 10 MEQ TAB PO SCH (10:45)
[2017-11-23] MEDS: SERTRALINE HCL 50 MG TAB PO SCH (10:46)
[2017-11-23] MEDS: CRANBERRY FRUIT EXTRACT 200 MG CAP PO SCH ×2 (10:46→22:17)
[2017-11-23] MEDS: ASPIRIN 81 MG CHEWABLE TABLET PO SCH (10:46)
[2017-11-23] MEDS: FUROSEMIDE 40 MG TABLET PO SCH (10:46)
[2017-11-23] MEDS: VITAMIN D 1000 UNIT TAB PO SCH (10:46)
[2017-11-23] MEDS: METOPROLOL XL 50 MG TAB PO SCH (10:46)
[2017-11-23] MEDS: LACTOBACILLUS/ACIDOPHILUS TAB PO SCH (22:18)
[2017-11-23] MEDS: ENOXAPARIN 40 MG/0.4 ML SQ SCH (22:18)
[2017-11-23] MEDS: TAMSULOSIN 0.4 MG SR CAP PO SCH (22:18)
[2017-11-23] MEDS: DONEPEZIL HCL 5 MG TAB PO SCH (22:18)
--- NOTE | 2017-11-24 03:16 | PN ---
Date of Progress Note: 11/23/2017 Subjective: The patient was seen this morning for followup. Lying in bed, not in any distress. No new complaints or problems reported. No chest pain, shortness of breath, nausea, or vomiting. Objective: Vital Signs: Reviewed. HEENT: Unremarkable. Lungs: Clear to auscultation. Heart: Heart sounds normal. Abdomen: Soft, bowel sounds normal. No guarding, rigidity, tenderness, or distention. Extremities: No leg edema. Laboratory Data: Sodium 143, potassium 3.7, chloride 105, bicarb 30, BUN 19, creatinine 0.70, glucos e 79. Impression: 1.Urinary tract infection, organism Escherichia coli, extended-spectrum beta-lactamases. 2.Chronic atrial fibrillation. 3.Generalized weakness. 4.Congestive heart failure, acute, systolic. Plan: We will continue current medication. The patient's proBNP was better today than admission gertrude e. We will start oral furosemide 40 mg p.o. daily and potassium supplement. Looking at patient's vi calri signs, we will not give any lisinopril at this point. Continue current antibiotics. PICC line i s in place and Award Machine Operator are assisting family for correction placement. Possible discharge t omorrow if correction arrangements get completed. FATIMAH/MODL Voice ID: [id number] Report ID: [id number]
[2017-11-24 05:21] LABS: BUN Blood Urea Nitrogen 16 mg/dL (7-18); Bicarbonate 34 mmol/L (21-32); Glucose Level 91 mg/dL (74-106); Potassium 3.8 mmol/L (3.5-5.1); Sodium Level 142 mmol/L (136-145)
[2017-11-24] MEDS ORDERED: POTASSIUM CL SA 10 MEQ TAB PO ONE (05:58)
[2017-11-24] MEDS: LEVOTHYROXINE SOD 0.1 MG TAB PO SCH (06:14)
[2017-11-24] MEDS: POTASSIUM CL SA 10 MEQ TAB PO SCH (09:00)
[2017-11-24] MEDS: Meropenem 1,000 MG in NA CHLORIDE 0.9% 100 ML IV SCH ×2 (10:11→21:39)
[2017-11-24] MEDS: CRANBERRY FRUIT EXTRACT 200 MG CAP PO SCH ×2 (10:11→21:40)
[2017-11-24] MEDS: ASPIRIN 81 MG CHEWABLE TABLET PO SCH (10:12)
[2017-11-24] MEDS: VITAMIN D 1000 UNIT TAB PO SCH (10:12)
[2017-11-24] MEDS: METOPROLOL XL 50 MG TAB PO SCH (10:12)
[2017-11-24] MEDS: SERTRALINE HCL 50 MG TAB PO SCH (10:12)
[2017-11-24] MEDS: FUROSEMIDE 40 MG TABLET PO SCH (10:13)
--- NOTE | 2017-11-24 21:20 | PN ---
Date of Progress Note: 11/24/2017 Subjective: The patient was seen this morning for followup. She was lying in bed, not in distress. No new complaints or problems reported by her. Objective: Vital Signs: Reviewed. HEENT: Unremarkable. Lungs: Clear to auscultation. Heart: Heart sounds normal. Abdomen: Soft, bowel sounds normal. No guarding, rigidity, tenderness, or distention. Extremities: No leg edema. Laboratory Data: Sodium 142, potassium 3.8, chloride 104, bicarb 34, BUN 16, creatinine 0.60, and gl ucose 91. Impression: 1.Urinary tract infection. 2.Congestive heart failure, acute, systolic, improved. 3.Anemia. 4.Generalized weakness. 5.Chronic atrial fibrillation. Plan: We will continue current medication. Continue oral Lasix and potassium replacement. Continue current IV antibiotics and DVT prophylaxis. We are awaiting for insurance approval for correction placement. Once we get that approval, then we will be able to discharge her to go to correction. Physical therapy consult was requested yesterday. FATIMAH/MARSHALL Voice ID: [id number] Report ID: [id number]
[2017-11-24] MEDS: TAMSULOSIN 0.4 MG SR CAP PO SCH (21:39)
[2017-11-24] MEDS: DONEPEZIL HCL 5 MG TAB PO SCH (21:39)
[2017-11-24] MEDS: LACTOBACILLUS/ACIDOPHILUS TAB PO SCH (21:39)
[2017-11-24] MEDS: ENOXAPARIN 40 MG/0.4 ML SQ SCH (21:40)
[2017-11-25 05:22] LABS: BUN Blood Urea Nitrogen 16 mg/dL (7-18); Bicarbonate 36 mmol/L (21-32); Glucose Level 95 mg/dL (74-106); Potassium 3.8 mmol/L (3.5-5.1); Sodium Level 143 mmol/L (136-145)
[2017-11-25] MEDS: LEVOTHYROXINE SOD 0.1 MG TAB PO SCH (06:07)
[2017-11-25] MEDS ORDERED: POTASSIUM CL SA 10 MEQ TAB PO ONE (07:00)
[2017-11-25] MEDS: POTASSIUM CL SA 10 MEQ TAB PO SCH (09:00)
[2017-11-25] MEDS: Meropenem 1,000 MG in NA CHLORIDE 0.9% 100 ML IV SCH ×2 (10:32→21:02)
[2017-11-25] MEDS: FUROSEMIDE 40 MG TABLET PO SCH (10:32)
[2017-11-25] MEDS: CRANBERRY FRUIT EXTRACT 200 MG CAP PO SCH ×2 (10:32→21:01)
[2017-11-25] MEDS: VITAMIN D 1000 UNIT TAB PO SCH (10:33)
[2017-11-25] MEDS: SERTRALINE HCL 50 MG TAB PO SCH (10:33)
[2017-11-25] MEDS: METOPROLOL XL 50 MG TAB PO SCH (10:33)
[2017-11-25] MEDS: ASPIRIN 81 MG CHEWABLE TABLET PO SCH (10:33)
[2017-11-25 10:59] LABS: Absolute Lymphocytes (CBC) 0.9 K/uL (0.7-4.9); Absolute Monocytes 0.5 K/uL (0.1-1.3); Absolute Neutrophil 7.2 K/uL (1.8-8.0); Basophils % 0.6 % (0-1.3); Eosinophils % 7.5 % (0-4.4); Hematocrit 38.9 % (36.0-45.0); Lymphocytes % 9.8 % (15.3-44.8); MCH 27.4 pg (27.0-35.0); MCV 83.9 fL (80-100); MPV 9.3 fL (7.6-11.3); Monocytes % 5.6 % (3.3-12.3); RBC Red Blood Cell Count 4.64 M/uL (3.86-4.86)
--- NOTE | 2017-11-25 12:36 | PN ---
Date of Progress Note: 11/25/2017 Subjective: The patient was seen this morning for followup. She was lying in bed. No new complaint s or problems reported by her. Denies any chest pain, shortness of breath, nausea, vomiting. Objective: Vital Signs: Reviewed. HEENT: Unremarkable. Lungs: Clear to auscultation. No rhonchi. No rales. Heart: Heart sounds normal. Abdomen: Soft. Laboratory Data: Sodium 143, potassium 3.8, bicarb 36, BUN 16, creatinine 0.60, and glucose 95. Impression: 1.Urinary tract infection. 2.Congestive heart failure, acute, systolic. 3.Anemia. 4.Generalized weakness. 5.Chronic atrial fibrillation. Plan: We will continue current antibiotics, which is meropenem. Continue Lasix. Potassium replacem ent per order. We will get a chest x-ray done today with CBC and BNP. Her previous BNP 2 days ago w as 8881. I will see her tomorrow for followup. FATIMAH/MODL Voice ID: [id number] Report ID: [id number]
--- NOTE | 2017-11-25 12:39 | RAD REPORT ---
EXAM DESCRIPTION: Violet Single View11/25/2017 11:23 am CLINICAL HISTORY: Chest pain COMPARISON: November 23 FINDINGS: The bilateral pulmonary opacities have partially resolved. Small pleural effusions are pre sent. The heart is mildly enlarged. A PICC line remains in place IMPRESSION: Partial resolution in mild pulmonary edema
[2017-11-25] MEDS: LACTOBACILLUS/ACIDOPHILUS TAB PO SCH (21:01)
[2017-11-25] MEDS: ENOXAPARIN 40 MG/0.4 ML SQ SCH (21:02)
[2017-11-25] MEDS: TAMSULOSIN 0.4 MG SR CAP PO SCH (21:02)
[2017-11-25] MEDS: DONEPEZIL HCL 5 MG TAB PO SCH (21:02)
[2017-11-26 05:11] LABS: BUN Blood Urea Nitrogen 18 mg/dL (7-18); Bicarbonate 34 mmol/L (21-32); Glucose Level 96 mg/dL (74-106); Magnesium 2.3 mg/dL (1.8-2.4); Potassium 3.9 mmol/L (3.5-5.1); Sodium Level 140 mmol/L (136-145)
[2017-11-26] MEDS: LEVOTHYROXINE SOD 0.1 MG TAB PO SCH (05:50)
[2017-11-26] MEDS ORDERED: POTASSIUM CL SA 10 MEQ TAB PO ONE (06:00)
[2017-11-26] MEDS: ASPIRIN 81 MG CHEWABLE TABLET PO SCH (11:27)
[2017-11-26] MEDS: POTASSIUM CL SA 10 MEQ TAB PO SCH (11:27)
[2017-11-26] MEDS: SERTRALINE HCL 50 MG TAB PO SCH (11:28)
[2017-11-26] MEDS: FUROSEMIDE 40 MG TABLET PO SCH (11:28)
[2017-11-26] MEDS: METOPROLOL XL 50 MG TAB PO SCH (11:28)
[2017-11-26] MEDS: Meropenem 1,000 MG in NA CHLORIDE 0.9% 100 ML IV SCH ×2 (11:29→21:23)
[2017-11-26] MEDS: VITAMIN D 1000 UNIT TAB PO SCH (11:29)
[2017-11-26] MEDS: CRANBERRY FRUIT EXTRACT 200 MG CAP PO SCH ×2 (11:31→21:22)
--- NOTE | 2017-11-26 17:00 | PN ---
Date of Progress Note: 11/26/2017 Subjective: The patient was seen this morning for followup. No new complaints or problems reported by patient. Lying in bed, not in distress. Objective: Vital Signs: Reviewed. HEENT: Unremarkable. Lungs: Clear to auscultation. Heart: Heart sounds normal. Abdomen: Soft, bowel sounds normal. No guarding, rigidity, tenderness, or distention. Extremities: No leg edema. Laboratory Data: Sodium 140, potassium 3.9, chloride 102, bicarb 34, BUN 18, creatinine 0.60, glucos e 96, magnesium 2.3. Impression: 1.Urinary tract infection, organism Escherichia coli and Klebsiella. 2.Generalized weakness. 3.Chronic atrial fibrillation. 4.Anemia. Plan: We will continue current medications. The patient has 2 different bacteria growing in her uri ne culture both of those bacteria are sensitive to meropenem that the patient is currently receiving. We will continue this, waiting for insurance approval for retirement placement, and hopefully, adriana cole might be able to go to retirement tomorrow if we get insurance approval. I will see her tomorrow for followup. FATIMAH/MODL Voice ID: [id number] Report ID: [id number]
[2017-11-26] MEDS: DONEPEZIL HCL 5 MG TAB PO SCH (21:22)
[2017-11-26] MEDS: TAMSULOSIN 0.4 MG SR CAP PO SCH (21:22)
[2017-11-26] MEDS: LACTOBACILLUS/ACIDOPHILUS TAB PO SCH (21:22)
[2017-11-26] MEDS: ENOXAPARIN 40 MG/0.4 ML SQ SCH (21:22)
[2017-11-27 05:01] VITALS: BMI 27.6
[2017-11-27] MEDS: LEVOTHYROXINE SOD 0.1 MG TAB PO SCH (06:04)
[2017-11-27] MEDS: Meropenem 1,000 MG in NA CHLORIDE 0.9% 100 ML IV SCH ×2 (10:45→21:13)
[2017-11-27] MEDS: VITAMIN D 1000 UNIT TAB PO SCH (10:46)
[2017-11-27] MEDS: FUROSEMIDE 40 MG TABLET PO SCH (10:46)
[2017-11-27] MEDS: POTASSIUM CL SA 10 MEQ TAB PO SCH (10:46)
[2017-11-27] MEDS: ASPIRIN 81 MG CHEWABLE TABLET PO SCH (10:47)
[2017-11-27] MEDS: METOPROLOL XL 50 MG TAB PO SCH (10:47)
[2017-11-27] MEDS: SERTRALINE HCL 50 MG TAB PO SCH (10:47)
[2017-11-27] MEDS: CRANBERRY FRUIT EXTRACT 200 MG CAP PO SCH ×2 (10:48→21:13)
[2017-11-27] MEDS: DONEPEZIL HCL 5 MG TAB PO SCH (21:14)
[2017-11-27] MEDS: ENOXAPARIN 40 MG/0.4 ML SQ SCH (21:14)
[2017-11-27] MEDS: TAMSULOSIN 0.4 MG SR CAP PO SCH (21:14)
[2017-11-27] MEDS: LACTOBACILLUS/ACIDOPHILUS TAB PO SCH (21:14)
--- NOTE | 2017-11-27 22:59 | PN ---
Date of Progress Note: 11/27/2017 Subjective: The patient was seen this morning for followup. Lying in bed, not in any distress. Objective: Vital Signs: Reviewed. HEENT: Unremarkable. Lungs: Clear to auscultation. Heart: Heart sounds normal. Abdomen: Soft. Bowel sounds normal. No guarding, rigidity, tenderness, or distention. Extremities: No leg edema. Laboratory Data: Yesterday's blood work results reviewed. White count 9.5, hemoglobin 12.7, platelets 186. Chemistry shows sodium 141, potassium 4, chloride 103, bicarb 33, BUN 17, creatinine 0.70, glucose 101. Impression: 1. Urinary tract infection. 2. Congestive heart failure, acute, systolic, improved. 3. Generalized weakness. 4. Chronic atrial fibrillation. Plan: We will go ahead and continue current medications. Continue Lasix and potassium supplement. Continue IV antibiotics. So far, we are waiting for insurance company to make decision on placement in custodial facility for her IV antibiotics and today, on day #7 of this admission, we heard from the patient's insurance company that they have denied the entire admission and we will be contacting the patient's insurance company tomorrow to communicate with physicians to do peer- to-peer review. FATIMAH/MODNatasha Voice ID: [id number] Report ID: [id number] TABITHA
[2017-11-28] MEDS: LEVOTHYROXINE SOD 0.1 MG TAB PO SCH (06:25)
[2017-11-28] MEDS: CRANBERRY FRUIT EXTRACT 200 MG CAP PO SCH (09:10)
[2017-11-28] MEDS: Meropenem 1,000 MG in NA CHLORIDE 0.9% 100 ML IV SCH (09:10)
[2017-11-28] MEDS: ASPIRIN 81 MG CHEWABLE TABLET PO SCH (09:11)
[2017-11-28] MEDS: FUROSEMIDE 40 MG TABLET PO SCH (09:11)
[2017-11-28] MEDS: VITAMIN D 1000 UNIT TAB PO SCH (09:11)
[2017-11-28] MEDS: SERTRALINE HCL 50 MG TAB PO SCH (09:11)
[2017-11-28] MEDS: METOPROLOL XL 50 MG TAB PO SCH (09:11)
[2017-11-28] MEDS: POTASSIUM CL SA 10 MEQ TAB PO SCH (09:11)
--- NOTE | 2017-11-28 10:03 | RAD REPORT ---
EXAM DESCRIPTION: Violet Single View11/28/2017 8:33 am CLINICAL HISTORY: Shortness breath COMPARISON: November 25, 2017 FINDINGS: The pulmonary opacities appear mostly if not completely resolved. Small pleural effusions are present. The heart is mildly enlarged. A PICC line remains in place in place
[2017-11-28 13:51] VITALS: O2SAT 96
[2017-11-28 17:38] VITALS: BP 135/78; TEMP 96
--- NOTE | 2017-11-29 03:37 | DS ---
Date of Discharge: 11/28/2017 Discharge Medications And Instructions: 1.Meropenem 1000 mg IV piggyback every 12 hours for 10 days. 2.CBC and Chem-7 every third day while on IV antibiotics. 3.Change PICC line dressing and flush PICC line per protocol. 4.Obtain straight cath urine specimen in few days after IV antibiotic therapy completed and group home physician to decide about removal of PICC line depending upon this urine test result. 5.Fall precautions. 6.Consult Physical Therapy and Occupational Therapy. FATIMAH/MODL Voice ID: [id number] Report ID: [id number]
--- NOTE | 2017-11-29 03:47 | DS ---
Date of Discharge: 11/28/2017 Disposition: Discharged to go to alf. Discharge Medications And Instructions: 1. Meropenem 1000 mg IV piggyback every 12 hours for 10 days. 2. CBC and Chem-7 every third day while on IV antibiotics. 3. Change PICC line dressing and flush PICC line per protocol. 4. Obtain straight cath urine specimen in few days after IV antibiotic therapy completed and alf physician to decide about removal of PICC line depending upon this urine test result. 5. Fall precautions. 6. Consult Physical Therapy and Occupational Therapy. Physical Examination: HEENT: Unremarkable. Lungs: Clear to auscultation. Heart: Sounds normal. Abdomen: Soft. Bowel sounds normal. No guarding, rigidity, tenderness, or distention. Extremities: No leg edema. Hospital Course: Ms. Ledesma is a pleasant 87-year-old female patient, who was sent to emergency room from [facility] with shortness of breath problem. Please see dictated H and P for more information. After the patient was evaluated in the ER, she was admitted to the hospital with congestive heart failure problem. This was diagnosed as having acute systolic congestive heart failure. She was started on IV Lasix and her condition improved. Her urinalysis also was abnormal consistent with urinary tract infection. When she first came in, her proBNP was 19,344. Echocardiogram showed ejection fraction around 45% or so. She responded well to IV Lasix and subsequently it was changed to oral Lasix. She was started on IV antibiotic which was meropenem and this was started on basis of her last 2-3 urine culture growing resistant bacteria E. coli which is ESBL. This time from the beginning we started her on this antibiotic and her urine culture did grow E. coli and once again it is ESBL. Details were discussed with the patient and the patient's daughter, and the drug of choice for such bacterial infection is meropenem, and PICC line was placed. Social Service was consulted to help make arrangements for patient to go to nursing home facility for IV antibiotic therapy. Physical Therapy was consulted. All her other medical problems remained stable. Today once all the arrangements completed for patient to go to nursing home facility, the patient was discharged in stable condition with discharge medications and instructions as per order. Final Diagnoses: 1. Congestive heart failure, acute, systolic. 2. Urinary tract infection, Escherichia coli, extended-spectrum beta- lactamases. 3. Atrial fibrillation, chronic. 4. Hypokalemia. 5. Generalized weakness. 6. Hypertension. 7. Hypothyroidism. 8. Hyperlipidemia. 9. Gastroesophageal reflux disease. 10. Osteoarthritis, multiple sites. 11. Vitamin B deficiency. Laboratory Data: Labs done during this hospitalization: White count was 6.8 on 11/21/2017, hemoglobin 11.1, platelets 194. Last sodium on 11/25/2017 was 143, potassium 3.8, chloride 103, bicarb 36, BUN 16, creatinine 0.60, glucose 95. Last proBNP on 11/23/2017 was 8881. Urine culture grew E. coli and Klebsiella. FATIMAH/MODL Voice ID: [id number] Report ID: [id number] MTDD
== END 2017-11-28 18:23 | DRG 292 ==
LOC: ER 10:58 → ERHOLD 13:01 → 2ND 15:03
PROVIDERS: ADMIT Internal Medicine; ATTEND Internal Medicine
PROC: 02HV33Z Insertion of Infusion Device into Superior Vena Cava, Percutaneous Approach (ICD-10-PCS; principal; 2017-11-23)
DX: I11.0 Hypertensive heart disease with heart failure (principal); N39.0 Urinary tract infection, site not specified; E03.9 Hypothyroidism, unspecified; I50.21 Acute systolic (congestive) heart failure; K21.9 Gastro-esophageal reflux disease without esophagitis; I48.2 Chronic atrial fibrillation; E55.9 Vitamin D deficiency, unspecified; M15.9 Polyosteoarthritis, unspecified; E78.5 Hyperlipidemia, unspecified; E87.6 Hypokalemia; Z66 Do not resuscitate; R53.1 Weakness; B96.20 Unspecified Escherichia coli [E. coli] as the cause of diseases classified elsewhere; Z16.12 Extended spectrum beta lactamase (ESBL) resistance; F03.90 Unspecified dementia, unspecified severity, without behavioral disturbance, psychotic disturbance, mood disturbance, and anxiety; Z88.1 Allergy status to other antibiotic agents; Z79.82 Long term (current) use of aspirin; Z88.2 Allergy status to sulfonamides; D64.9 Anemia, unspecified; B96.1 Klebsiella pneumoniae [K. pneumoniae] as the cause of diseases classified elsewhere
CPT/HCPCS: 36415; 71045; 80048; 81003; 81015; 82962; 83735; 83880; 84484; 85025; 85610; 87040; 87077; 87086; 87088; 87186; 93005; 93306; 96374; 96375; 97163; 99285; J0696; J1650; J1940; J2185

== ENCOUNTER 2017-12-18 07:57 | Emergency (ER) | payer OTHER, BC ==
--- OUTSIDE RECORDS SUMMARY | 2017-12-18 08:00 | XMS REPORT | Clinical Summary ---
:1930 Author Organization [facility] Address [address] [place] [id number] Care Team Providers Name Role Phone Kiet [...] INFLUENZA VACCINE 12/06/2017 Implants Implanted Type Area Dolphin Trainer Device Expiration Model / Identifier Date Serial / Lot Device Closure Ariana Dudley 33mm - [id number] Cardiovascular N/A: [place] 02/25/2019 [id number] / Implanted: 06/01/2016 (Quantity not on file) Implants N/A Renewable Funding / [id number] Results Not on fileafter 12/17/2016 Insurance Payer Benefit Plan / Group Subscriber ID Type Phone Address MEDICARE MEDICARE PART A AND B xxxxxxxxxx Medicare [place], [place] BCBS BCBS CHOICE PPO/[employer]ER[employer] EMPL PPO xxxxxxxxx PPO [phone] [place] [id number]
--- NOTE | 2017-12-18 08:51 | EDPHYS ---
Physician Documentation [facility] Name: Jocy Ledesma Age: 87 yrs Sex: Female : 1930 Arrival Date: 12/18/2017 Time: 08:00 Bed 8 Private MD: ED Physician Abhinav Salvador HPI: 12/18 08:47 This 87 yrs old Female presents to ER via Ambulatory with complaints of PICC conchita Line. 08:47 The patient or guardian complains of pain, that is acute. The complaints affect the conchita right bicep. Context: The problem was sustained at home. Onset: The symptoms/episode began/occurred just prior to arrival. Modifying factors: The symptoms are alleviated by nothing. Severity of symptoms: At their worst the symptoms were very mild, in the emergency department the symptoms are unchanged. The patient has not experienced similar symptoms in the past. Historical: - Allergies: 08:24 Ciprofloxacin HCl; iw 08:24 Sulfa (Sulfonamide Antibiotics); iw - Home Meds: 08:24 Aricept 10 mg Oral tab 1 tab once daily [Active]; aspirin 81 mg Oral chew 1 tab once iw daily [Active]; cholecalciferol (vitamin D3) 1,000 unit Oral tab daily [Active]; cranberry Oral twice a day [Active]; Lactobacillus acidophilus Oral cap nightly [Active]; levothyroxine 100 mcg tab 1 tab once daily [Active]; metoprolol tartrate 50 mg Oral tab 1 tab once daily [Active]; potassium chloride 20 mEq Oral TbTQ 1 tab once daily for Hypokalemia [Active]; rosuvastatin 5 mg Oral tab 1 tab once daily [Active]; sertraline 25 mg Oral tab 1 tab once daily [Active]; tamsulosin 0.4 mg Oral cp24 1 cap once daily [Active]; Vitamin C 500 mg Oral tab every morning [Active]; - PMHx: 08:24 Atrial Fib; Dementia; GI Bleed; hypokalemia, hypothyroidism; iw - Immunization history:: Adult Immunizations up to date. - Social history:: Smoking status: Patient/guardian denies using tobacco. - Ebola Screening: : Patient negative for fever greater than or equal to 101.5 degrees Fahrenheit, and additional compatible Ebola Virus Disease symptoms Patient denies exposure to infectious person Patient denies travel to an Ebola-affected area in the 21 days before illness onset No symptoms or risks identified at this time. ROS: 08:48 Constitutional: Negative for fever, chills, and weight loss, Eyes: Negative for injury, conchita pain, redness, and discharge, ENT: Negative for injury, pain, and discharge, Neck: Negative for injury, pain, and swelling, Cardiovascular: Negative for chest pain, palpitations, and edema, Respiratory: Negative for shortness of breath, cough, wheezing, and pleuritic chest pain, Abdomen/GI: Negative for abdominal pain, nausea, vomiting, diarrhea, and constipation, Back: Negative for injury and pain, : Negative for injury, bleeding, discharge, and swelling, Skin: Negative for injury, rash, and discoloration, Neuro: Negative for headache, weakness, numbness, tingling, and seizure, Psych: Negative for depression, anxiety, suicide ideation, homicidal ideation, and hallucinations, Allergy/Immunology: Negative for hives, rash, and allergies, Endocrine: Negative for neck swelling, polydipsia, polyuria, polyphagia, and marked weight changes, Hematologic/Lymphatic: Negative for swollen nodes, abnormal bleeding, and unusual bruising. 08:48 MS/extremity: Positive for pain, of the right bicep. Exam: 08:48 Constitutional: This is a well developed, well nourished patient who is awake, alert, conchita and in no acute distress. Head/Face: Normocephalic, atraumatic. Eyes: Pupils equal round and reactive to light, extra-ocular motions intact. Lids and lashes normal. Conjunctiva and sclera are non-icteric and not injected. Cornea within normal limits. Periorbital areas with no swelling, redness, or edema. ENT: Nares patent. No nasal discharge, no septal abnormalities noted. Tympanic membranes are normal and external auditory canals are clear. Oropharynx with no redness, swelling, or masses, exudates, or evidence of obstruction, uvula midline. Mucous membranes moist. Neck: Trachea midline, no thyromegaly or masses palpated, and no cervical lymphadenopathy. Supple, full range of motion without nuchal rigidity, or vertebral point tenderness. No Meningismus. Chest/axilla: Normal chest wall appearance and motion. Nontender with no deformity. No lesions are appreciated. Cardiovascular: Regular rate and rhythm with a normal S1 and S2. No gallops, murmurs, or rubs. Normal PMI, no JVD. No pulse deficits. Respiratory: Lungs have equal breath sounds bilaterally, clear to auscultation and percussion. No rales, rhonchi or wheezes noted. No increased work of breathing, no retractions or nasal flaring. Abdomen/GI: Soft, non-tender, with normal bowel sounds. No distension or tympany. No guarding or rebound. No evidence of tenderness throughout. Back: No spinal tenderness. No costovertebral tenderness. Full range of motion. Skin: Warm, dry with normal turgor. Normal color with no rashes, no lesions, and no evidence of cellulitis. MS/ Extremity: Pulses equal, no cyanosis. Neurovascular intact. Full, normal range of motion. Neuro: Awake and alert, GCS 15, oriented to person, place, time, and situation. Cranial nerves II-XII grossly intact. Motor strength 5/5 in all extremities. Sensory grossly intact. Cerebellar exam normal. Normal gait. Psych: Awake, alert, with orientation to person, place and time. Behavior, mood, and affect are within normal limits. Vital Signs: 08:24 BP 139 / 87; Pulse 83; Resp 16; Temp 98.3; Weight 86.18 kg; Height 5 ft. 8 in. (172.72 iw cm); Pain 0/10; 08:30 Pulse Ox 95% on R/A; aa5 09:00 BP 121 / 84; Pulse 70; Resp 16 S; Pulse Ox 96% on R/A; Pain 0/10; aa5 08:24 Body Mass Index 28.89 (86.18 kg, 172.72 cm) Procedures: 08:51 Foreign Body Removal: from the right right arm, by traction, dressing, PICC line. [facility] Dressinx4s were used to dress the wound, The patient tolerated the removal well. MDM: 08:23 Patient medically screened. [facility] 08:24 Patient medically screened. [facility] 08:49 Data reviewed: vital signs, nurses notes, radiologic studies, plain films. [facility] 12/18 08:47 Order name: Chest Single View XRAY [facility] 12/18 08:47 Order name: Wound Care; Complete Time: 09:06 [facility] Administered Medications: No medications were administered Disposition: 12/18/17 08:50 Discharged to Home. Impression: Displacement of infusion catheter - removed. - Condition is Stable. - Discharge Instructions: PICC Removal, PICC Removal, Care After. - Medication Reconciliation Form, Thank You Letter, Antibiotic Education, Prescription Opioid Use form. - Follow up: Private Physician; When: 2 - 3 days; Reason: Recheck today's complaints, Continuance of care, Re-evaluation by your physician. - Problem is new. - Symptoms have improved. Signatures: Dispatcher [employer] EDAbhinav Bermeo MD MD cha Williams, Irene, RN RN iw Calderon, Audri, RN RN aa5 Corrections: (The following items were deleted from the chart) 09:31 08:50 12/18/2017 08:50 Discharged to Home. Impression: Displacement of infusion aa5 catheter - removed. Condition is Stable. Forms are Medication Reconciliation Form, Thank You Letter, Antibiotic Education, Prescription Opioid Use. Follow up: Private Physician; When: 2 - 3 days; Reason: Recheck today's complaints, Continuance of care, Re-evaluation by your physician. Problem is new. Symptoms have improved. conchita
--- NOTE | 2017-12-18 08:51 | ER ---
Nurse's Notes [facility] Name: Jocy Ledesma Age: 87 yrs Sex: Female : 1930 Arrival Date: 12/18/2017 Time: 08:00 Bed 8 Private MD: Diagnosis: Displacement of infusion catheter-removed Presentation: 12/18 08:19 Presenting complaint: Patient states: [facility] staff attempted to remove her PICC iw line on Monday, the nurse couldn't get it to come all the way out, was told to come to ER to have it removed by the "PICC team". Transition of care: patient was not received from another setting of care. Onset of symptoms was December 18, 2017. Risk Assessment: Do you want to hurt yourself or someone else? Patient reports no desire to harm self or others. Initial Sepsis Screen: Does the patient meet any 2 criteria? No. Patient's initial sepsis screen is negative. Does the patient have a suspected source of infection? No. Patient's initial sepsis screen is negative. Care prior to arrival: None. 08:19 Method Of Arrival: Ambulatory iw 08:19 Acuity: LORENZA 3 iw Historical: - Allergies: 08:24 Ciprofloxacin HCl; iw 08:24 Sulfa (Sulfonamide Antibiotics); iw - Home Meds: 08:24 Aricept 10 mg Oral tab 1 tab once daily [Active]; aspirin 81 mg Oral chew 1 tab once iw daily [Active]; cholecalciferol (vitamin D3) 1,000 unit Oral tab daily [Active]; cranberry Oral twice a day [Active]; Lactobacillus acidophilus Oral cap nightly [Active]; levothyroxine 100 mcg tab 1 tab once daily [Active]; metoprolol tartrate 50 mg Oral tab 1 tab once daily [Active]; potassium chloride 20 mEq Oral TbTQ 1 tab once daily for Hypokalemia [Active]; rosuvastatin 5 mg Oral tab 1 tab once daily [Active]; sertraline 25 mg Oral tab 1 tab once daily [Active]; tamsulosin 0.4 mg Oral cp24 1 cap once daily [Active]; Vitamin C 500 mg Oral tab every morning [Active]; - PMHx: 08:24 Atrial Fib; Dementia; GI Bleed; hypokalemia, hypothyroidism; iw - Immunization history:: Adult Immunizations up to date. - Social history:: Smoking status: Patient/guardian denies using tobacco. - Ebola Screening: : Patient negative for fever greater than or equal to 101.5 degrees Fahrenheit, and additional compatible Ebola Virus Disease symptoms Patient denies exposure to infectious person Patient denies travel to an Ebola-affected area in the 21 days before illness onset No symptoms or risks identified at this time. Screenin:30 Abuse screen: No signs of abuse noted. Nutritional screening: No deficits noted. aa5 Tuberculosis screening: No symptoms or risk factors identified. Fall Risk None identified. Assessment: 08:30 General: Appears comfortable, Behavior is calm, cooperative. Pain: Denies pain. Neuro: aa5 Level of Consciousness is awake, alert, obeys commands, Oriented to person, place, situation, Cosmetic Assembler are weak bilaterally Moves all extremities. Speech is normal, Facial symmetry appears normal, Pupils are PERRLA. Cardiovascular: Patient's skin is warm and dry. Respiratory: Airway is patent Respiratory effort is even, unlabored, Respiratory pattern is regular, symmetrical. GI: No signs and/or symptoms were reported involving the gastrointestinal system. : Pt's daughter states "she completed 10 days of IV antibiotics for a bladder infection". EENT: No signs and/or symptoms were reported regarding the EENT system. Derm: Skin is pink, warm \\T\\ dry. Musculoskeletal: Range of motion: intact in all extremities. 08:30 Reassessment: PICC noted to right arm, appears to be half way out, pt's daughter states aa5 "the nurse tried to take it out but she said it was hard". . 08:45 Reassessment: VO to d/c PICC received at 0845. aa5 09:00 Reassessment: PICC dc'd, no resistance noted, pt tolerated well, pressure applied to aa5 site for 5 minutes, dressed with Neosporin and band-aid. PICC length: 38 cm . 09:08 Reassessment: Chest x-ray completed at bedside . aa5 09:28 Reassessment: X-ray reviewed by Dr. Salvador, VO to d/c pt now . aa5 09:30 Reassessment: Patient is alert, oriented x 3, equal unlabored respirations, skin aa5 warm/dry/pink. Vital Signs: 08:24 BP 139 / 87; Pulse 83; Resp 16; Temp 98.3; Weight 86.18 kg; Height 5 ft. 8 in. (172.72 iw cm); Pain 0/10; 08:30 Pulse Ox 95% on R/A; aa5 09:00 BP 121 / 84; Pulse 70; Resp 16 S; Pulse Ox 96% on R/A; Pain 0/10; aa5 08:24 Body Mass Index 28.89 (86.18 kg, 172.72 cm) ED Course: 08:00 Patient arrived in ED. mr 08:23 Triage completed. 08:23 Abhinav Salvador MD is Attending Physician. [facility] 08:24 Arm band placed on. 08:30 Patient has correct armband on for positive identification. Bed in low position. Call aa5 light in reach. Side rails up X2. Adult w/ patient. 08:35 Eda Mann, RN is Primary Nurse. aa5 09:19 X-ray completed. Portable x-ray completed in exam room. Patient tolerated procedure sw well. 09:21 Chest Single View XRAY In Process Unspecified. EDHI 09:30 No provider procedures requiring assistance completed. aa5 09:30 Patient did not have IV access during this emergency room visit. aa5 Administered Medications: No medications were administered Outcome: 08:50 Discharge ordered by . [facility] 09:30 Discharged to home via wheelchair, with family. aa5 09:30 Condition: good 09:30 Discharge instructions given to patient, family, Instructed on discharge instructions, follow up and referral plans. wound care, Demonstrated understanding of instructions, follow-up care, wound care. 09:31 Patient left the ED. aa5 Signatures: Dispatcher [employer] EDHI Abhinav Salvdaor MD MD cha Rivera, Maria Kisha Boo, RN RONALDO Eda Mann, RN RN ceferino Carla Diallo Corrections: (The following items were deleted from the chart) 09:12 09:00 Reassessment: PICC dc'd, pt tolerated well, pressure applied to site for 5 aa5 minutes, dressed with Neosporin and band-aid. . aa5
[2017-12-18 09:36] VITALS: BP 139/87; TEMP 98.3
--- NOTE | 2017-12-18 10:13 | RAD REPORT ---
EXAM DESCRIPTION: RAD - Chest Single View - 12/18/2017 9:23 am CLINICAL HISTORY: Cough, shortness of breath, PICC line removal COMPARISON: November 28 TECHNIQUE: AP portable chest image was obtained 0908 hours . FINDINGS: Since the November 28 study the right-side PICC line has been removed. This was probably done just prior to imaging. No PICC line or portion of the PICC line identifiable on this study. Patient has prominent baseline interstitial markings. This is increased in the right base and correla tion is needed with any early pneumonia symptoms. Right base findings are potentially atelectasis. No failure or volume overload. Heart and vasculature are normal. No new or enlarging pleural fluid collection. No gross bony abnorm ality seen. No acute aortic findings suspected. IMPRESSION: Shallow inspiration film showing increased right lung base markings. This could be atele ctasis or early infiltrate. No PICC line or PICC line remnant identifiable. No pneumothorax.
== END 2017-12-18 09:31 | disposition home or self-care (01) ==
LOC: ER 07:57
DX: T82.524A Displacement of infusion catheter, initial encounter (principal); E87.6 Hypokalemia; E03.9 Hypothyroidism, unspecified; I48.91 Unspecified atrial fibrillation; F03.90 Unspecified dementia, unspecified severity, without behavioral disturbance, psychotic disturbance, mood disturbance, and anxiety; Z79.82 Long term (current) use of aspirin; Z88.1 Allergy status to other antibiotic agents; Z88.2 Allergy status to sulfonamides
CPT/HCPCS: 71045; 99283

== ENCOUNTER 2017-12-23 18:35 | Inpatient (IN) | payer OTHER, BC ==
--- OUTSIDE RECORDS SUMMARY | 2017-12-23 18:36 | XMS REPORT | Clinical Summary ---
:1930 Author Organization [facility] Address [address] [place] [id number] Care Team Providers Name Role Phone Kiet [...] INFLUENZA VACCINE 12/06/2017 Implants Implanted Type Area Asic Verification Engineer Device Expiration Model / Identifier Date Serial / Lot Device Closure Ariana Dudley 33mm - [id number] Cardiovascular N/A: [place] 02/25/2019 [id number] / Implanted: 06/01/2016 (Quantity not on file) Implants N/A SCYNEXIS / [id number] Results Not on fileafter 12/22/2016 Insurance Payer Benefit Plan / Group Subscriber ID Type Phone Address MEDICARE MEDICARE PART A AND B xxxxxxxxxx Medicare [place], [place] BCBS BCBS CHOICE PPO/FEDERAL EMPL PPO xxxxxxxxx PPO [phone] [place] [id number]
[2017-12-23] MEDS ORDERED: FUROSEMIDE 100 MG/10 ML VIAL IV ONE (19:26)
[2017-12-23 19:43] LABS: Protime INR 1.14
[2017-12-23 19:46] LABS: Absolute Lymphocytes (CBC) 0.8 K/uL (0.7-4.9); Absolute Monocytes 0.6 K/uL (0.1-1.3); Absolute Neutrophil 7.3 K/uL (1.8-8.0); Basophils % 0.7 % (0-1.3); Eosinophils % 5.3 % (0-4.4); Hematocrit 38.1 % (36.0-45.0); Lymphocytes % 8.7 % (15.3-44.8); MCH 27.3 pg (27.0-35.0); MCV 83.8 fL (80-100); MPV 9.5 fL (7.6-11.3); Monocytes % 6.4 % (3.3-12.3); RBC Red Blood Cell Count 4.55 M/uL (3.86-4.86)
[2017-12-23 19:55] LABS: Albumin 3.1 g/dL (3.4-5.0); Bilirubin Direct 0.1 mg/dL (0-0.2); Bilirubin Total 0.4 mg/dL (0.2-1.0); Potassium 3.4 mmol/L (3.5-5.1); Protein, Total 6.8 g/dL (6.4-8.2)
--- NOTE | 2017-12-23 20:04 | RAD REPORT ---
EXAM DESCRIPTION: Violet Single View12/23/2017 7:50 pm CLINICAL HISTORY: Shortness of breath COMPARISON: December 18, 2017 FINDINGS: Mild bilateral interstitial lung opacities are present. Small pleural effusions are suspected. The heart is mildly enlarged IMPRESSION: Mild CHF
--- NOTE | 2017-12-23 20:20 | EDPHYS ---
Physician Documentation [facility] Name: Jocy Ledesma Age: 87 yrs Sex: Female : 1930 Arrival Date: 12/23/2017 Time: 18:38 Bed 15 Private MD: Grabiel Coles C ED Physician Brian Terrazas HPI: 12/23 19:54 This 87 yrs old Female presents to ER via Wheelchair with complaints of jr8 Breathing Difficulty. 19:54 The patient has shortness of breath at rest. Onset: The symptoms/episode began/occurred jr8 acutely, today. Duration: The symptoms are continuous. The patient's shortness of breath is aggravated by walking. Associated signs and symptoms: The patient has no apparent associated signs or symptoms. Severity of symptoms: At their worst the symptoms were moderate in the emergency department the symptoms have improved mildly. It is unknown whether or not the patient has had similar symptoms in the past. The patient has not recently seen a physician. History of heart failure per patient and significant other. Stated that she started to have lower extremity fluid collection over the past couple of days and now having shortness of breath. Historical: - Allergies: 18:48 Ciprofloxacin HCl; aj 18:48 Sulfa (Sulfonamide Antibiotics); aj - Home Meds: 18:48 Aricept 10 mg Oral tab 1 tab once daily [Active]; aspirin 81 mg Oral chew 1 tab once aj daily [Active]; cholecalciferol (vitamin D3) 1,000 unit Oral tab daily [Active]; cranberry Oral twice a day [Active]; Lactobacillus acidophilus Oral cap nightly [Active]; levothyroxine 100 mcg tab 1 tab once daily [Active]; metoprolol tartrate 50 mg Oral tab 1 tab once daily [Active]; potassium chloride 20 mEq Oral TbTQ 1 tab once daily for Hypokalemia [Active]; rosuvastatin 5 mg Oral tab 1 tab once daily [Active]; sertraline 25 mg Oral tab 1 tab once daily [Active]; tamsulosin 0.4 mg Oral cp24 1 cap once daily [Active]; Vitamin C 500 mg Oral tab every morning [Active]; - PMHx: 18:48 Atrial Fib; Dementia; GI Bleed; hypokalemia, hypothyroidism; aj - PSHx: 18:48 "Watchman" implant for Atrial Fib; aj - Immunization history:: Adult Immunizations up to date. - Social history:: Smoking status: Patient/guardian denies using tobacco. - Ebola Screening: : Patient negative for fever greater than or equal to 101.5 degrees Fahrenheit, and additional compatible Ebola Virus Disease symptoms Patient denies exposure to infectious person Patient denies travel to an Ebola-affected area in the 21 days before illness onset No symptoms or risks identified at this time. ROS: 19:57 Eyes: Negative for injury, pain, redness, and discharge, ENT: Negative for injury, jr8 pain, and discharge, Neck: Negative for injury, pain, and swelling, Abdomen/GI: Negative for abdominal pain, nausea, vomiting, diarrhea, and constipation, Back: Negative for injury and pain, MS/Extremity: Negative for injury and deformity, Skin: Negative for injury, rash, and discoloration, Neuro: Negative for headache, weakness, numbness, tingling, and seizure. 19:57 Cardiovascular: Positive for edema, Negative for chest pain, orthopnea, palpitations, paroxysmal nocturnal dyspnea. 19:57 Respiratory: Positive for dyspnea on exertion, shortness of breath. Exam: 19:57 Eyes: Pupils equal round and reactive to light, extra-ocular motions intact. Lids and jr8 lashes normal. Conjunctiva and sclera are non-icteric and not injected. Cornea within normal limits. Periorbital areas with no swelling, redness, or edema. ENT: Nares patent. No nasal discharge, no septal abnormalities noted. Tympanic membranes are normal and external auditory canals are clear. Oropharynx with no redness, swelling, or masses, exudates, or evidence of obstruction, uvula midline. Mucous membranes moist. Neck: Trachea midline, no thyromegaly or masses palpated, and no cervical lymphadenopathy. Supple, full range of motion without nuchal rigidity, or vertebral point tenderness. No Meningismus. Abdomen/GI: Soft, non-tender, with normal bowel sounds. No distension or tympany. No guarding or rebound. No evidence of tenderness throughout. Back: No spinal tenderness. No costovertebral tenderness. Full range of motion. Skin: Warm, dry with normal turgor. Normal color with no rashes, no lesions, and no evidence of cellulitis. MS/ Extremity: Pulses equal, no cyanosis. Neurovascular intact. Full, normal range of motion. Neuro: Awake and alert, GCS 15, oriented to person, place, time, and situation. Cranial nerves II-XII grossly intact. Motor strength 5/5 in all extremities. Sensory grossly intact. Cerebellar exam normal. Normal gait. 19:57 Cardiovascular: Rate: normal, Rhythm: irregularly irregular, Pulses: Pulses are 2+ in right radial artery and left radial artery. Heart sounds: normal, normal S1and S2, no S3 or S4, no murmur, no rub, no gallop, Edema: 2+ edema to level of left midcalf, left ankle, left foot, right midcalf, right ankle and right foot, JVD: is not appreciated. 19:57 Respiratory: mild respiratory distress is noted, Respirations: tachypnea, that is mild, Breath sounds: decreased breath sounds, that are mild, are located in both bases. Vital Signs: 18:48 BP 131 / 96; Pulse 85; Resp 21; Temp 98.5; Pulse Ox 96% on R/A; Weight 83.91 kg; Height aj 5 ft. 8 in. (172.72 cm); 19:39 BP 140 / 98; Pulse 74; Resp 24; Pulse Ox 93% on R/A; tl3 20:18 BP 139 / 89; Pulse 74; Resp 24; Pulse Ox 94% on R/A; tl3 20:59 BP 139 / 96; Pulse 70; Resp 25; Pulse Ox 100% on 2 lpm NC; tl2 21:32 BP 142 / 98; Pulse 65; Resp 25; Pulse Ox 100% on 2 lpm NC; tl2 18:48 Body Mass Index 28.13 (83.91 kg, 172.72 cm) MDM: 19:02 Patient medically screened. [facility] 20:18 Data reviewed: vital signs, nurses notes, lab test result(s), EKG, radiologic studies, jr plain films. Data interpreted: Pulse oximetry: on room air is 93 %. Interpretation: borderline. Counseling: I had a detailed discussion with the patient and/or guardian regarding: the historical points, exam findings, and any diagnostic results supporting the discharge/admit diagnosis, lab results, radiology results, the need for further work-up and treatment in the hospital. Physician consultation: A Sanket CHEN was called at 20:19, was contacted at 20:19, regarding admission, to the telemetry unit. consult, patient's condition, and will see patient wants inpatient admission . 12/23 19:14 Order name: Basic Metabolic Panel; Complete Time: 19:57 12/23 19:14 Order name: CBC with Diff; Complete Time: 19:52 12/23 19:14 Order name: LFT's; Complete Time: 19:57 12/23 19:14 Order name: Magnesium; Complete Time: 19:57 12/23 19:14 Order name: NT PRO-BNP; Complete Time: 19:57 12/23 19:14 Order name: PT-INR; Complete Time: 19:52 12/23 19:14 Order name: XRAY Chest (1 view); Complete Time: 20:10 12/23 19:14 Order name: EKG; Complete Time: 19:14 12/23 19:14 Order name: Cardiac monitoring; Complete Time: 19:36 12/23 19:14 Order name: EKG - Nurse/Tech; Complete Time: 19:36 12/23 19:14 Order name: IV Saline Lock; Complete Time: 19:36 12/23 19:14 Order name: Labs collected and sent; Complete Time: 19:36 12/23 19:14 Order name: O2 Per Protocol; Complete Time: 19:36 12/23 19:14 Order name: O2 Sat Monitoring; Complete Time: 19:36 Administered Medications: 19:35 Drug: Lasix 60 mg Route: IVP; Site: right antecubital; tl3 21:34 Follow up: Response: No adverse reaction tl2 20:23 CANCELLED (Duplicate Order): Xopenex 1.25 mg Inhalation once tl2 20:24 Drug: Xopenex 1.25 mg Route: Inhalation; tl2 21:35 Follow up: Response: No adverse reaction; Marked relief of symptoms tl2 Disposition: 12/23/17 20:19 Hospitalization ordered by Grabiel Coles for Inpatient Admission. Preliminary diagnosis is Acute combined systolic (congestive) and diastolic (congestive) heart failure. - Bed requested for Telemetry/MedSurg (Inpatient). - Status is Inpatient Admission. tl2 - Condition is Fair. - Problem is new. - Symptoms have improved. UTI on Admission? No Signatures: Dispatcher [employer] Uri Mahajan rg2 Gina Springer RN RN Gabriel Smith PA PA jr8 Lara George, RN RN tl2 Aunm Hanson RN RN tl3 Corrections: (The following items were deleted from the chart) 20:23 20:23 Xopenex 1.25 mg Inhalation once ordered. tl3 tl2 20:51 20:19 Hospitalization Ordered by A Sanket CHEN for Inpatient Admission. Preliminary rg2 diagnosis is Acute combined systolic (congestive) and diastolic (congestive) heart failure. Bed requested for Telemetry/MedSurg (Inpatient). Status is Inpatient Admission. Condition is Fair. Problem is new. Symptoms have improved. UTI on Admission? No. jr8 21:35 20:51 12/23/2017 20:19 Hospitalization Ordered by A Sanket CHEN for Inpatient Admission. tl2 Preliminary diagnosis is Acute combined systolic (congestive) and diastolic (congestive) heart failure. Bed requested for Telemetry/MedSurg (Inpatient). Status is Inpatient Admission. Condition is Fair. Problem is new. Symptoms have improved. UTI on Admission? No. rg2
--- NOTE | 2017-12-23 20:20 | ER ---
Nurse's Notes [facility] Name: Jocy Ledesma Age: 87 yrs Sex: Female : 1930 Arrival Date: 12/23/2017 Time: 18:38 Bed 15 Private MD: Grabiel Coles C Diagnosis: Acute combined systolic (congestive) and diastolic (congestive) heart failure Presentation: 12/23 18:45 Presenting complaint: Child states: Instructed to bring patient to ER for SOB and aj "fluid on the lungs" by nurse at assisted living. Alert and oriented. Reports near syncope when walking to chair. Transition of care: patient was not received from another setting of care. Onset of symptoms was December 23, 2017. Risk Assessment: Do you want to hurt yourself or someone else? Patient reports no desire to harm self or others. Initial Sepsis Screen: Does the patient meet any 2 criteria? No. Patient's initial sepsis screen is negative. Does the patient have a suspected source of infection? No. Patient's initial sepsis screen is negative. Care prior to arrival: None. 18:45 Method Of Arrival: Wheelchair aj 18:45 Acuity: LORENZA 3 aj Triage Assessment: 18:48 General: Appears in no apparent distress. comfortable, Behavior is calm, cooperative, aj appropriate for age. Pain: Denies pain. Neuro: Level of Consciousness is awake, alert, obeys commands, Oriented to person, place, time, situation, Appropriate for age. Respiratory: Reports shortness of breath on exertion Airway is patent Respiratory effort is even, unlabored, Respiratory pattern is symmetrical, tachypnea Onset: The symptoms/episode began/occurred today, the patient has mild shortness of breath. Derm: Skin is intact, is healthy with good turgor, Skin is pink, warm \\T\\ dry. normal. Historical: - Allergies: 18:48 Ciprofloxacin HCl; aj 18:48 Sulfa (Sulfonamide Antibiotics); aj - Home Meds: 18:48 Aricept 10 mg Oral tab 1 tab once daily [Active]; aspirin 81 mg Oral chew 1 tab once aj daily [Active]; cholecalciferol (vitamin D3) 1,000 unit Oral tab daily [Active]; cranberry Oral twice a day [Active]; Lactobacillus acidophilus Oral cap nightly [Active]; levothyroxine 100 mcg tab 1 tab once daily [Active]; metoprolol tartrate 50 mg Oral tab 1 tab once daily [Active]; potassium chloride 20 mEq Oral TbTQ 1 tab once daily for Hypokalemia [Active]; rosuvastatin 5 mg Oral tab 1 tab once daily [Active]; sertraline 25 mg Oral tab 1 tab once daily [Active]; tamsulosin 0.4 mg Oral cp24 1 cap once daily [Active]; Vitamin C 500 mg Oral tab every morning [Active]; - PMHx: 18:48 Atrial Fib; Dementia; GI Bleed; hypokalemia, hypothyroidism; aj - PSHx: 18:48 "Watchman" implant for Atrial Fib; aj - Immunization history:: Adult Immunizations up to date. - Social history:: Smoking status: Patient/guardian denies using tobacco. - Ebola Screening: : Patient negative for fever greater than or equal to 101.5 degrees Fahrenheit, and additional compatible Ebola Virus Disease symptoms Patient denies exposure to infectious person Patient denies travel to an Ebola-affected area in the 21 days before illness onset No symptoms or risks identified at this time. Screenin:39 Abuse screen: Denies threats or abuse. Nutritional screening: No deficits noted. tl3 Tuberculosis screening: No symptoms or risk factors identified. Fall Risk IV access (20 points). Assessment: 19:39 General: Appears in no apparent distress. uncomfortable, Behavior is calm, cooperative, tl3 appropriate for age. Pain: Denies pain. Neuro: Level of Consciousness is awake, alert, obeys commands, Oriented to person, place, time, situation. Cardiovascular: Denies chest pain, Edema is 2+ to left ankle, left foot, right ankle and right foot Rhythm is atrial fibrillation. Respiratory: Reports shortness of breath at rest Airway is patent Respiratory effort is even, labored, Respiratory pattern is symmetrical, tachypnea Breath sounds are diminished Breath sounds with wheezes. GI: No signs and/or symptoms were reported involving the gastrointestinal system. : No signs and/or symptoms were reported regarding the genitourinary system. Derm: Skin is pink, warm \\T\\ dry. 20:18 Reassessment: Patient appears in no apparent distress at this time. Patient and/or tl3 family updated on plan of care and expected duration. Pain level reassessed. Patient is alert, oriented x 3, equal unlabored respirations, skin warm/dry/pink. 21:32 Reassessment: Patient appears in no apparent distress at this time. Patient and/or tl2 family updated on plan of care and expected duration. Pain level reassessed. Patient is alert, oriented x 3, equal unlabored respirations, skin warm/dry/pink. Pt stable and ready for transport. Vital Signs: 18:48 BP 131 / 96; Pulse 85; Resp 21; Temp 98.5; Pulse Ox 96% on R/A; Weight 83.91 kg; Height aj 5 ft. 8 in. (172.72 cm); 19:39 BP 140 / 98; Pulse 74; Resp 24; Pulse Ox 93% on R/A; tl3 20:18 BP 139 / 89; Pulse 74; Resp 24; Pulse Ox 94% on R/A; tl3 20:59 BP 139 / 96; Pulse 70; Resp 25; Pulse Ox 100% on 2 lpm NC; tl2 21:32 BP 142 / 98; Pulse 65; Resp 25; Pulse Ox 100% on 2 lpm NC; tl2 18:48 Body Mass Index 28.13 (83.91 kg, 172.72 cm) aj Vitals: 19:39 Cardiac Rhythm Assessment Atrial fibrillation. tl3 ED Course: 18:38 Patient arrived in ED. mr 18:38 Grabiel Coles MD is Private Physician. mr 18:47 Triage completed. aj 18:48 Arm band placed on left wrist. Patient placed in an exam room. aj 19:02 Gabriel Hernandez PA is PHCP. jr8 19:02 Brian Terrazas MD is Attending Physician. jr8 19:35 Inserted saline lock: 20 gauge in right antecubital area, using aseptic technique. tl3 Blood collected. 19:36 EKG done, by ED staff, reviewed by Gabriel NOYOLA. cc 19:42 Patient has correct armband on for positive identification. Bed in low position. Call tl3 light in reach. Side rails up X2. Adult w/ patient. 19:51 XRAY Chest (1 view) In Process Unspecified. EDMS 20:17 Anum Hanson, RONALDO is Primary Nurse. tl3 20:19 Grabiel Coles MD is Hospitalizing Provider. jr8 21:32 No provider procedures requiring assistance completed. Patient admitted, IV remains in tl2 place. Administered Medications: 19:35 Drug: Lasix 60 mg Route: IVP; Site: right antecubital; tl3 21:34 Follow up: Response: No adverse reaction tl2 20:23 CANCELLED (Duplicate Order): Xopenex 1.25 mg Inhalation once tl2 20:24 Drug: Xopenex 1.25 mg Route: Inhalation; tl2 21:35 Follow up: Response: No adverse reaction; Marked relief of symptoms tl2 Outcome: 20:19 Decision to Hospitalize by Provider. jr8 21:32 Admitted to Tele accompanied by tech, family with patient, via wheelchair, room 428, tl2 with oxygen, with chart, Report called to RONALDO Gómez 21:32 Condition: stable 21:32 Discharge instructions given to patient, family, Instructed on the need for admit. 21:35 Patient left the ED. tl2 Signatures: Dispatcher [employer] EDMS Gina Springer, RN Rajni Sierra mr Moravian, Gabriel Issa, JAZMÍN PA jr8 Lara George RN RN tl2 Anum Hanson RN RN tl3 Corrections: (The following items were deleted from the chart) 19:42 19:39 Respiratory: Airway is patent Respiratory effort is even, labored, Respiratory tl3 pattern is symmetrical, tachypnea Breath sounds are coarse bilaterally. tl3 20:22 19:39 Cardiovascular: Denies chest pain, Rhythm is atrial fibrillation tl3 tl3 20:22 19:39 Respiratory: Reports shortness of breath at rest Airway is patent Respiratory tl3 effort is even, labored, Respiratory pattern is symmetrical, tachypnea Breath sounds are coarse bilaterally. tl3
[2017-12-23] MEDS ORDERED: LEVALBUTEROL 1.25 MG/3 ML NEB ONE (20:21)
[2017-12-23] MEDS ORDERED: IPRATROPIUM BROM 0.5MG/2.5ML NEB PRN (21:31)
[2017-12-23] MEDS ORDERED: ONDANSETRON 4 MG/2 ML VIAL IV PRN (21:31)
[2017-12-23] MEDS ORDERED: ACETAMINOPHEN 500 MG TAB PO PRN (21:31)
[2017-12-23] MEDS ORDERED: ALBUTEROL 2.5 MG/3 ML NEB SOL NEB PRN (21:31)
[2017-12-23 21:57] VITALS: BMI 28.1
[2017-12-24 05:23] LABS: Absolute Lymphocytes (CBC) 1.1 K/uL (0.7-4.9); Absolute Monocytes 0.7 K/uL (0.1-1.3); Absolute Neutrophil 6.9 K/uL (1.8-8.0); Basophils % 1.2 % (0-1.3); Eosinophils % 6.9 % (0-4.4); Lymphocytes % 11.4 % (15.3-44.8); MCH 27.3 pg (27.0-35.0); MCV 83.2 fL (80-100); MPV 9.9 fL (7.6-11.3); Monocytes % 7.8 % (3.3-12.3); RBC Red Blood Cell Count 4.56 M/uL (3.86-4.86)
[2017-12-24 05:54] LABS: Potassium 3.1 mmol/L (3.5-5.1)
--- NOTE | 2017-12-24 07:46 | EKG ---
Test Date: 2017-12-23 Test Time: 19:30:42 Email Manager: CARLOS MEASUREMENT RESULTS: Intervals: Rate: 77 MS: QRSD: 78 QT: 332 QTc: 375 [place]: P: MS: QRS: -24 T: -67 INTERPRETIVE STATEMENTS: Atrial flutter with variable AV block with premature ventricular or aberrantly conducted complexes Inferior infarct, age undetermined Cannot rule out Anterior infarct, age undetermined Abnormal ECG Compared to ECG 11/20/2017 14:10:17 Ventricular premature complex(es) now present Myocardial infarct finding still present Electronically Signed On 12-24-17 07:45:09 CDT by Sanjeev Field
[2017-12-24] MEDS: ENOXAPARIN 30 MG/0.3 ML SQ SCH (08:57)
[2017-12-24] MEDS ORDERED: FUROSEMIDE 20 MG/ 2ML VIAL IV SCH (09:00)
[2017-12-24] MEDS: FUROSEMIDE 40 MG/4 ML VIAL IV SCH ×2 (09:01→17:09)
[2017-12-24] MEDS ORDERED: ACETAMINOPHEN 325 MG TABLET PO PRN (11:04)
[2017-12-24] MEDS ORDERED: POTASSIUM 25 MEQ EFFERV TAB PO ONE (19:00)
[2017-12-24] MEDS: TAMSULOSIN 0.4 MG SR CAP PO SCH (20:51)
[2017-12-24] MEDS: DONEPEZIL HCL 5 MG TAB PO SCH (20:51)
--- NOTE | 2017-12-24 20:51 | HP ---
Date of Admission: 12/24/2017 FATIMAH/MODNatasha Voice ID: [id number] [email or web address]
[2017-12-24] MEDS: ROSUVASTATIN 10 MG TAB PO SCH (20:52)
[2017-12-24] MEDS: CRANBERRY FRUIT EXTRACT 200 MG CAP PO SCH (20:52)
[2017-12-24] MEDS ORDERED: CRANBERRY FRUIT PO SCH (21:00)
[2017-12-24] MEDS ORDERED: HOME MED 1 EA UNK (Donepezil Hcl [Aricept] 1 TAB) PO SCH (21:00)
--- NOTE | 2017-12-24 21:06 | HP ---
Date of Admission: 12/24/2017 Chief Complaint: Shortness of breath. History Of Present Illness: This is an 87-year-old female patient, living at [facility], who was sent to emergency room yesterday with complaints of shortness of breath. The patient denies any fever or chills. No expectoration. No chest pain. No nausea or vomiting. After she was evaluated in the ER, she was admitted to the hospital under my service with congestive heart failure problem. She was given IV Lasix in the emergency room and this morning when I saw her, she denied any new specific complaints. Medications: List reviewed. Allergies: CIPRO AND SULFA. Review of Systems: Respiratory: As mentioned above. All other systems reviewed and negative. Past Medical History: Significant for atrial fibrillation, hypertension, hyperlipidemia, hypothyroidism, gastroesophageal reflux disease, osteoarthritis at multiple sites, vitamin D deficiency, recurrent urinary tract infections, and congestive heart failure. Past Surgical History: Hysterectomy, cataract surgery, bladder suspension, hemorrhoid surgery, and Watchman device placement for atrial fibrillation. Family History: Mother had Alzheimer's disease, diabetes, and Parkinson's disease. Brother had diabetes. Social History: Negative for smoking and alcohol use. Prior history of smoking , not at present time. Physical Examination: Vital Signs: Last temperature 98.3, pulse 75, respiratory rate 18, blood pressure 142/90, oxygen saturation 98%. General: Awake, alert, oriented, not in distress. HEENT: Head atraumatic, normocephalic. Conjunctivae nonerythematous. Sclerae white. Mouth, no thrush or edema noted. Ears/Nose, no mass, lesion, discharge noted. Neck: Supple. No JVD, lymph nodes, bruit, thyromegaly noted. Lungs: Diminished air entry in both lower half of the lung horta. Heart: Normal heart sounds, no murmur or gallop. Abdomen: Soft, bowel sounds normal. No guarding, rigidity, tenderness, mass, hepatosplenomegaly, distention, or bruit noted. Extremities: No leg edema. No calf tenderness. Skin: No rash, ulcer, cellulitis. Lymphatics: No lymph node enlargement in neck, supraclavicular, infraclavicular region. Neuro: No focal neurological deficit. Chest: Unremarkable. External Genitalia: Deferred. Rectal: Deferred. Laboratory Data: Yesterday, white count 9.2, hemoglobin 12.4, and platelets 203. Today, white count 9.4, hemoglobin 12.5, and platelets 176. INR 1.14. Yesterday, sodium 142, potassium 3.4, chloride 104, bicarb 30, BUN 16, creatinine 1.10, and glucose 182. Liver function tests unremarkable. ProBNP 22 ,333. Today, sodium 143, potassium 3.1, chloride 104, bicarb 32, BUN 13, creatinine 0.80, glucose 102. ProBNP 20,751. Chest x-ray shows changes of congestive heart failure. Last echocardiogram 11/21/2017 shows ejection fraction of 46%. Impression: 1. Congestive heart failure, chronic, systolic, with acute exacerbation. 2. Hypokalemia. 3. Atrial fibrillation, chronic. 4. Hypertension. 5. Hyperlipidemia. 6. Hypothyroidism. 7. Gastroesophageal reflux disease. 8. Osteoarthritis, multiple sites. 9. Vitamin D deficiency. Plan: We will admit patient to hospital for further evaluation and management of this problem. The patient is appropriate for inpatient and is expected to spend 2 midnights in hospital. Home medications will be continued per order. We will go ahead and give IV Lasix. Monitor electrolyte, also replace the patient's potassium per protocol and I will see her tomorrow for followup. Lovenox will be given for DVT prophylaxis. The patient is not a candidate for long-term anticoagulation for her chronic atrial fibrillation because of prior problem with GI bleeding while on anticoagulation therapy and that is the whole reason why she underwent Watchman device placement procedure. Details of plan of treatment discussed with her. We will go ahead and repeat blood work tomorrow morning to monitor her electrolytes. I did discuss with her about her advance directive and as per the patient's decision, DNR order will be written in the chart. FATIMAH/MODL Voice ID: [id number] [email or web address]
[2017-12-25] MEDS ORDERED: POTASSIUM 25 MEQ EFFERV TAB PO ONE (01:11)
[2017-12-25] MEDS: LEVOTHYROXINE SOD 0.1 MG TAB PO SCH (06:13)
[2017-12-25 06:18] LABS: Magnesium 2.1 mg/dL (1.8-2.4)
[2017-12-25] MEDS ORDERED: POTASSIUM CHLORIDE 10 MEQ PO SCH (09:00)
[2017-12-25] MEDS ORDERED: HOME MED 1 EA UNK (Cholecalciferol (Vitamin D3) [Vitamin D3] 1 CAP) PO SCH (09:00)
--- NOTE | 2017-12-25 09:20 | RAD REPORT ---
EXAM DESCRIPTION: Violet Single View12/25/2017 7:50 am CLINICAL HISTORY: Shortness of breath COMPARISON: December 23 FINDINGS: Mild bilateral pulmonary opacities and small pleural effusions are without significant conchita nge. The heart is mildly enlarged. IMPRESSION: No change in mild CHF
[2017-12-25] MEDS: ENOXAPARIN 30 MG/0.3 ML SQ SCH (09:51)
[2017-12-25] MEDS: FUROSEMIDE 40 MG/4 ML VIAL IV SCH ×2 (09:53→18:18)
[2017-12-25] MEDS: SERTRALINE HCL 50 MG TAB PO SCH (09:53)
[2017-12-25] MEDS: VITAMIN D 1000 UNIT TAB PO SCH (09:53)
[2017-12-25] MEDS: CRANBERRY FRUIT EXTRACT 200 MG CAP PO SCH ×2 (09:54→20:26)
[2017-12-25] MEDS: POTASSIUM CL SA 10 MEQ TAB PO SCH (09:54)
[2017-12-25] MEDS: ASPIRIN 81 MG CHEWABLE TABLET PO SCH (09:54)
[2017-12-25] MEDS: METOPROLOL XL 50 MG TAB PO SCH (09:54)
[2017-12-25] MEDS: DONEPEZIL HCL 5 MG TAB PO SCH (20:25)
[2017-12-25] MEDS: ROSUVASTATIN 10 MG TAB PO SCH (20:25)
[2017-12-25] MEDS: TAMSULOSIN 0.4 MG SR CAP PO SCH (20:25)
--- NOTE | 2017-12-25 23:52 | PN ---
Date of Progress Note: 12/25/2017 Subjective: The patient was seen this morning for followup. She was lying in bed, not in distress. Denies any shortness of breath, chest pain, nausea, or vomiting. Her son was present with her at [facility]. Objective: Vital Signs: Reviewed. HEENT: Unremarkable. Lungs: Diminished air entry in the lower lung horta. Not using accessory muscles of respiration. Heart: Sounds normal. Abdomen: Soft. Bowel sounds normal. No guarding, rigidity, tenderness, or distention. Extremities : No leg edema. Laboratory Data: Sodium 141, potassium 4, chloride 101, bicarb 35, BUN 13, creatinine 0.70, glucose 94, and magnesium 2.1. Impression: 1.Congestive heart failure, systolic, chronic, with acute exacerbation. 2.Anemia. 3.Chronic atrial fibrillation. 4.Hypertension. Plan: We will continue current medications. Continue IV Lasix. Repeat chest x-ray done today, resu lts reviewed. We will see her tomorrow for followup. Possible discharge to go home tomorrow dependi ng on her condition and upon discharge, we will discharge her with higher dose of furosemide. Detail s of plan of treatment discussed with the patient and her son. FATIMAH/MODL Voice ID: [id number] Report ID: [id number]
[2017-12-26 04:55] LABS: Magnesium 2.1 mg/dL (1.8-2.4); Potassium 3.7 mmol/L (3.5-5.1)
[2017-12-26] MEDS ORDERED: POTASSIUM CL SA 10 MEQ TAB PO ONE (05:17)
[2017-12-26] MEDS: LEVOTHYROXINE SOD 0.1 MG TAB PO SCH (06:00)
[2017-12-26 08:32] VITALS: O2SAT 99
[2017-12-26] MEDS: POTASSIUM CL SA 10 MEQ TAB PO SCH (09:01)
[2017-12-26] MEDS: VITAMIN D 1000 UNIT TAB PO SCH (09:01)
[2017-12-26] MEDS: METOPROLOL XL 50 MG TAB PO SCH (09:02)
[2017-12-26] MEDS: SERTRALINE HCL 50 MG TAB PO SCH (09:03)
[2017-12-26] MEDS: FUROSEMIDE 40 MG/4 ML VIAL IV SCH (09:03)
[2017-12-26] MEDS: ASPIRIN 81 MG CHEWABLE TABLET PO SCH (09:03)
[2017-12-26] MEDS: CRANBERRY FRUIT EXTRACT 200 MG CAP PO SCH (09:04)
[2017-12-26] MEDS: ENOXAPARIN 30 MG/0.3 ML SQ SCH (09:04)
[2017-12-26 12:55] VITALS: BP 110/74; TEMP 98.2
--- NOTE | 2017-12-27 18:51 | DS ---
Date of Discharge: 12/26/2017 Disposition: Discharged to go to [facility]. Physical Examination: HEENT: Unremarkable. Lungs: Clear to auscultation. No rhonchi. No rales. Heart: Sounds normal. Abdomen: Soft. Bowel sounds normal. No guarding, rigidity, tenderness, or distention. Extremities: No leg edema. Hospital Course: An 87-year-old female patient who was admitted to the hospital with shortness of breath problem. Please see dictated H and P for more information. The patient was evaluated in the ER. She was admitted to the hospital under my service with acute exacerbation of CHF problem. She was given IV Lasix 40 mg IV 2 times a day and that actually has helped her shortness of breath problem. She has not had any paroxysmal nocturnal dyspnea or orthopnea. The lungs finding has improved with diuretic therapy and she is feeling much better. Prior to this admission, she was taking furosemide 20 mg p.o. daily and I have suggested to increase the dose and we will give her 40 mg p.o. 2 times a day and she was taking potassium chloride 10 mEq p.o. daily and I have advised her to increase dose to 10 mEq p.o. 2 times a day. The patient' s long term physician should monitor her chem-7 and magnesium on a regular basis for any possible side effect from this medications. Details were discussed with the patient and the patient's son. The patient's advance directive decision was DNR, which was written in the chart. Laboratory Data: Labs done during this hospitalization upon admission white count 9.2, hemoglobin 12.4, platelets 203. Potassium 3.4, chloride 104, bicarb 30, BUN 16, creatinine 1.10, glucose 182. Liver function tests unremarkable. Echocardiogram from last month had shows ejection fraction of 42%. Final Diagnoses: 1. Congestive heart failure, chronic, systolic, with acute exacerbation. 2. Hypokalemia. 3. Atrial fibrillation, chronic. 4. Hypertension. 5. Hyperlipidemia. 6. Hypothyroidism. 7. Gastroesophageal reflux disease. 8. Osteoarthritis, multiple sites. 9. Vitamin D deficiency. FATIMAH/MODL Voice ID: [id number] Report ID: [id number] [facility] MEDICAL CENTERMatthew
== END 2017-12-26 14:28 | disposition home or self-care (01) | DRG 293 ==
LOC: ER 18:35 → ERHOLD 20:24 → 4TH 20:52
PROVIDERS: ADMIT Internal Medicine; ATTEND Internal Medicine
DX: I11.0 Hypertensive heart disease with heart failure (principal); I50.23 Acute on chronic systolic (congestive) heart failure; I48.2 Chronic atrial fibrillation; D64.9 Anemia, unspecified; E87.6 Hypokalemia; M15.9 Polyosteoarthritis, unspecified; K21.9 Gastro-esophageal reflux disease without esophagitis; E55.9 Vitamin D deficiency, unspecified; F03.90 Unspecified dementia, unspecified severity, without behavioral disturbance, psychotic disturbance, mood disturbance, and anxiety; E78.5 Hyperlipidemia, unspecified; E03.9 Hypothyroidism, unspecified; Z66 Do not resuscitate; Z88.1 Allergy status to other antibiotic agents; Z99.81 Dependence on supplemental oxygen; Z88.2 Allergy status to sulfonamides; Z79.82 Long term (current) use of aspirin
CPT/HCPCS: 36415; 71045; 80048; 80076; 83735; 83880; 84132; 85025; 85610; 93005; 96374; 99285; J1650; J1940

== ENCOUNTER 2020-06-26 10:59 | Emergency (ER) | payer OTHER, BC ==
--- OUTSIDE RECORDS SUMMARY | 2020-06-26 11:01 | XMS REPORT | Clinical Summary ---
:1930 Author Organization [facility] [employer] Address [address] [place] [address] Care Team Providers Name Role Phone Jesse Coles MD Primary Care Provider Allergies Active Allergy Reactions Severity Noted Date Comments Ciprofloxacin Other (See Comments) 06/01/2016 unknow n Sulfa (Sulfonamide High 06/01/2016 Was hospi talized Antibiotics) Medications Medication Sig Dispensed Refills Start Date End Date Status apixaban (ELIQUIS) 5 mg Take 5 mg by 0 Active tablet mouth 2 (two) times a day. levothyroxine (SYNTHROID, Take 100 mcg by 0 Active LEVOXYL) 100 mcg tablet mouth every morning. spironolactone Take 25 mg by 0 A ctive (ALDACTONE) 25 MG tablet mouth daily. sertraline (ZOLOFT) 25 MG Take 25 mg by 0 Active tablet mouth daily. rosuvastatin (CRESTOR) 5 Take 5 mg by 0 Active MG tablet mouth nightly. tamsulosin (FLOMAX) 0.4 Take 0.4 mg by 0 Active mg capsule,extended mouth nightly. release 24hr metoprolol tartrate Take 50 mg by 0 Active (LOPRESSOR) 50 mg tablet mouth nightly. Active Problems Problem Noted Date Atrial fibrillation 06/01/2016 Surgical History Surgery Date Site/Laterality Comments BLADDER SURGERY HYSTERECTOMY CARDIAC CATHETERIZATION 06/01/2016 N/A Procedur e: Cv left atrial appendage closure; Surgeon: Eric Scott Jr., MD; Location: [facility] Door Person Invasive Location; Service: Cardiovascular; Laterality: N/A; WATCHMAN DEVICE IMPLANT SAMANTA Medical devices from this surgery are in the Implants section. Medical History Medical History Date Comments Arrhythmia Disease of thyroid gland Hypertension Stroke (HCC) GI (gastrointestinal bleed) Bladder infection Wears dentures Family History Medical History Relation Name Comments Heart disease Father Heart disease Mother Relation Name Status Comments Father Mother Social History Tobacco Use Types Packs/Day Years Used Date Former Smoker Comments: quit years a go Alcohol Use Drinks/Week oz/Week Comments Yes 1 Glasses of wine 1.0 1 per month Sex Assigned at Date Recorded Not on file Last Filed Vital Signs Not on file Plan of Treatment Health Maintenance Due Date Last Done Comments COVID-19 VACCINE (1 of 2) 1946 SHINGLES VACCINES (#1) 1981 65+ PNEUMOCOCCAL VACCINE (1 of 1 - PPSV23) 02/10/1996 INFLUENZA VACCINE 12/07/2019 Implants Implanted Type Area Mixer Foam Rubber Device Shelf Model / Identifier Expiration Serial / Date Lot Device Closure Watchman Octavia 33mm - [id number] Cardiovascular N/A: [place] 02/25/2019 [id number] / Implanted: 06/01/2016 at [facility] (Quantity not on file) Liset garvin N/A [employer] / [id number] Results Not on fileafter 06/26/2019 Insurance Payer Benefit Plan / Subscriber ID Effective Dates Phone Addre ss Type Group MEDICARE MEDICARE PART A [id number] 1996-Present [facility] [place] [facility] AND B BCBS BCBS CHOICE [id number] 2009-Present PPO PPO/[employer] EMPL PPO Advance Directives For more information, please contact: [phone] Type Date Recorded Patient Maxillofacial Surgeon Explanati on Advance Directives, Living Will and Medical Power of Health And Safety Manager
[2020-06-26 11:24] LABS: Absolute Lymphocytes (CBC) 0.9 K/uL (0.7-4.9); Basophils % 0.7 % (0-1.3); Hematocrit 38.6 % (36.0-45.0); Lymphocytes % 11.3 % (15.3-44.8); MPV 9.3 fL (7.6-11.3); RBC Red Blood Cell Count 4.39 M/uL (3.86-4.86)
[2020-06-26 11:28] LABS: Protime INR 1.04
[2020-06-26 11:35] LABS: Potassium 3.7 mmol/L (3.5-5.1)
--- NOTE | 2020-06-26 11:36 | RAD REPORT ---
EXAM DESCRIPTION: CT - Ct Stroke Brain Wo Cont - 06/26/2020 11:19 am CLINICAL HISTORY: R/O STROKE Headache, drowsiness, CVA symptomology COMPARISON: Head Brain Wo Cont dated 09/06/2017; Head angio dated 04/08/2016 TECHNIQUE: All CT scans are performed using dose optimization technique as appropriate and may inclu de automated exposure control or mA/KV adjustment according to patient size. FINDINGS: No intracranial hemorrhage, hydrocephalus or extra-axial fluid collection.Mild generalized brain atrophy is present with mild periventricular and deep white matter chronic microvascular ische jerrica changes.No areas of brain edema or evidence of midline shift. The paranasal sinuses and mastoids are clear. The calvarium is intact. IMPRESSION: No acute intracranial abnormality. The findings were discussed with Dr. Olson On 06/26/2020 at 11:20 a.m. by telephone.
--- NOTE | 2020-06-26 13:49 | RAD REPORT ---
EXAM DESCRIPTION: Violet Single View06/26/2020 1:41 pm CLINICAL HISTORY: Alteration of consciousness/code stroke COMPARISON: 2018 FINDINGS: Lungs appear clear of acute infiltrate. Heart is normal size. Blunting of the left lateral costophrenic sulcus could indicate a small pleural effusion or pleural t hickening
[2020-06-26 15:13] LABS: Urine Blood 3+ (NEG); Urine Glucose NEGATIVE (NEG); Urine Protein 3+ (NEG)
[2020-06-26] MEDS ORDERED: CEFTRIAXONE 1000 MG/VIAL ONE (16:17)
[2020-06-26] MEDS ORDERED: CEFTRIAXONE/SWI 1gm 1 GM/10 ML SYR ONE (16:20)
--- NOTE | 2020-06-26 17:49 | RAD REPORT ---
EXAM DESCRIPTION: MRI - Brain W/Wo Cont - 06/26/2020 5:02 pm CLINICAL HISTORY: Confusion COMPARISON: Head CT June 26, 2020 TECHNIQUE: Axial, sagittal, and coronal magnetic images of the brain were obtained. 19 cc MultiHance administered intravenously FINDINGS: Moderate signal within periventricular, deep and subcortical white matter probably ischemi c changes secondary to small vessel disease The ventricles are normal in caliber. Diffusion-weighted/ ADC mapping sequences do not demonstrate evidence of an acute infarction. No abnormal enhancement within the brain is seen. An extra-axial fluid collection is not noted. Mild to moderate signal left mastoid IMPRESSION: No acute intracranial abnormality displayed [id number] signal left mastoid may indicate mastoiditis
--- NOTE | 2020-06-26 18:21 | EDPHYS ---
Physician Documentation [facility] Name: Jocy Ledesma Age: 89 yrs Sex: Female : 1930 Arrival Date: 06/26/2020 Time: 11:18 Bed 4 Private MD: ED Physician Francisco Olson HPI: 06/26 16:24 This 89 yrs old Female presents to ER via EMS with complaints of syncope and kdr left sided shaking. 16:24 The patient presents to the emergency department with weakness of the entire body, kdr generalized weakness, that is mild. Onset: The symptoms/episode began/occurred suddenly, just prior to arrival, at 10:30. Context: occurred at a shelter or assisted living facility, occurred while the patient was at rest. Associated signs and symptoms: Pertinent positives: Shaking and twitching on the left. Severity of symptoms: At their worst the symptoms were moderate just prior to arrival, in the emergency department the symptoms have resolved. Patient's baseline: Neuro: alert and fully oriented, Motor:. Patient's baseline: Motor: Reportedly has some mobility but the exact extent is unkown. Current symptoms: decreased level of consciousness, Seems tired but is awake and responding to questions appropriate. It is unknown whether or not the patient has had similar symptoms in the past. It is unknown whether or not the patient has recently seen a physician. EMS reports brief LOC follow by twitching the the left side upper/lower. She had stopped by the time of EMS arrival and had one twitch during transport.. Historical: - Allergies: 11:35 Ciprofloxacin HCl; jd3 11:35 Sulfa (Sulfonamide Antibiotics); jd3 - PMHx: 11:35 Dementia; GI Bleed; Atrial Fib; hypokalemia, hypothyroidism; CHF; jd3 - PSHx: 11:35 "Watchman" implant for Atrial Fib; jd3 - Immunization history:: Adult Immunizations unknown. - Social history:: Smoking status: Patient denies any tobacco usage or history of. ROS: 16:47 Constitutional: Negative for fever, chills, and weight loss, Eyes: Negative for injury, kdr pain, redness, and discharge, ENT: Negative for injury, pain, and discharge, Neck: Negative for injury, pain, and swelling, Cardiovascular: Negative for chest pain, palpitations, and edema, Respiratory: Negative for shortness of breath, cough, wheezing, and pleuritic chest pain, Abdomen/GI: Negative for abdominal pain, nausea, vomiting, diarrhea, and constipation, Back: Negative for injury and pain, : Negative for injury, bleeding, discharge, and swelling, MS/Extremity: Negative for injury and deformity, Skin: Negative for injury, rash, and discoloration, Psych: Negative for depression, anxiety, suicide ideation, homicidal ideation, and hallucinations, Allergy/Immunology: Negative for hives, rash, and allergies, Endocrine: Negative for neck swelling, polydipsia, polyuria, polyphagia, and marked weight changes, Hematologic/Lymphatic: Negative for swollen nodes, abnormal bleeding, and unusual bruising. 16:47 Neuro: Positive for altered mental status, speech changes, syncope, weakness. Exam: 12:36 ECG was reviewed by the Attending Physician. kdr 16:47 Constitutional: This is a well developed, well nourished patient who is awake, alert, kdr and in no acute distress. Head/Face: Normocephalic, atraumatic. Eyes: Pupils equal round and reactive to light, extra-ocular motions intact. Lids and lashes normal. Conjunctiva and sclera are non-icteric and not injected. Cornea within normal limits. Periorbital areas with no swelling, redness, or edema. Neck: Trachea midline, no thyromegaly or masses palpated, and no cervical lymphadenopathy. Supple, full range of motion without nuchal rigidity, or vertebral point tenderness. No Meningismus. Chest/axilla: Normal chest wall appearance and motion. Nontender with no deformity. No lesions are appreciated. Cardiovascular: Regular rate and rhythm with a normal S1 and S2. No gallops, murmurs, or rubs. Normal PMI, no JVD. No pulse deficits. Respiratory: Lungs have equal breath sounds bilaterally, clear to auscultation and percussion. No rales, rhonchi or wheezes noted. No increased work of breathing, no retractions or nasal flaring. Abdomen/GI: Soft, non-tender, with normal bowel sounds. No distension or tympany. No guarding or rebound. No evidence of tenderness throughout. Back: No spinal tenderness. No costovertebral tenderness. Full range of motion. Skin: Warm, dry with normal turgor. Normal color with no rashes, no lesions, and no evidence of cellulitis. MS/ Extremity: Pulses equal, no cyanosis. Neurovascular intact. Full, normal range of motion. 16:47 Neuro: Orientation: appropriate for stated age, Cranial nerves: no acute changes, Cerebellar function: normal finger to nose testing, Slow and somewhat clumsy but symmetric , Motor: no acute changes, moves all fours, strength is 5/5 in all extremities. Vital Signs: 11:20 BP 134 / 88; Pulse 88; Resp 22; Pulse Ox 98% ; dm14 11:35 BP 113 / 75; Pulse 83; Resp 18 S; Temp 97.8(TE); Pulse Ox 97% ; Weight 74.84 kg (R); jd3 Pain 0/10; 12:00 BP 110 / 76; Pulse 77; Resp 15; Pulse Ox 97% ; dm14 12:56 BP 101 / 77; Pulse 68; Resp 15; Pulse Ox 96% ; dm14 NIH Stroke Scale Scores: 11:15 NIHSS Score: 2 dm14 11:35 NIHSS Score: 2 kdr MDM: 18:20 Patient medically screened. kdr 18:22 Data reviewed: vital signs, nurses notes, lab test result(s), radiologic studies. kdr Counseling: I had a detailed discussion with the patient and/or guardian regarding: the historical points, exam findings, and any diagnostic results supporting the discharge/admit diagnosis, lab results, radiology results, the need for outpatient follow up. Special discussion: I discussed with the patient/guardian in detail that at this point there is no indication for admission to the hospital. It is understood, however, that if the symptoms persist or worsen the patient needs to return immediately for re-evaluation. ED course: The patient was stable in the ED and did not evidence any signs of acute CVA or other life or limb threatening disease process. 06/26 11:20 Order name: Basic Metabolic Panel; Complete Time: 15:22 kdr 06/26 11:20 Order name: CBC with Diff; Complete Time: 15:22 kdr 06/26 11:20 Order name: Protime (+inr); Complete Time: 15:22 kdr 06/26 11:20 Order name: Ptt, Activated; Complete Time: 15:22 kdr 06/26 11:35 Order name: Glucose, Ancillary Testing; Complete Time: 15:22 EDMS 06/26 14:15 Order name: Urine Culture aa5 06/26 11:18 Order name: Ct Stroke Brain Wo Cont; Complete Time: 15:22 EDMS 06/26 11:20 Order name: Stroke CXR 1 View; Complete Time: 15:22 kdr 06/26 11:20 Order name: EKG; Complete Time: 11:20 kdr 06/26 11:20 Order name: Accucheck; Complete Time: 11:41 kdr 06/26 12:33 Order name: MRI - Brain W/Wo Cont; Complete Time: 17:52 kdr 06/26 14:58 Order name: Urine Dipstick--Ancillary (enter results); Complete Time: 15:22 eb 06/26 11:20 Order name: Cardiac monitoring; Complete Time: 11:41 kdr 06/26 11:20 Order name: EKG - Nurse/Tech; Complete Time: 11:52 kdr 06/26 11:20 Order name: IV Saline Lock; Complete Time: 11: kdr 06/26 11:20 Order name: Labs collected and sent; Complete Time: 11: kdr 06/26 11:20 Order name: NPO; Complete Time: 11: kdr 06/26 11:20 Order name: O2 Per Protocol; Complete Time: 11: kdr 06/26 11:20 Order name: O2 Sat Monitoring; Complete Time: 11: kdr 06/26 11:20 Order name: Stroke Swallow Screen; Complete Time: 11:41 kdr EC:36 Rate is 83 beats/min. Rhythm is irregularly irregular, A fib with No ectopy. Left axis kdr deviation noted. KS interval is normal. QRS interval is normal. QT interval is normal. Clinical impression: Atrial Fibrillation. Administered Medications: 16:05 Drug: Rocephin 1 grams {Note: infused over 2 minutes.} Route: IV; Rate: calculated dm14 rate; Site: left forearm; 16:08 Follow up: Response: No adverse reaction; IV Status: Completed infusion dm14 Point of Care Testing: Blood Glucose: 11:15 Blood Glucose: 87 mg/dL; jd3 Ranges: Critical Glucose Levels:Adult <50 mg/dl or >400 mg/dl <40 mg/dl or >180 mg/dl Disposition: 06/26/20 18:20 Discharged to Home. Impression: Urinary tract infection, site not specified, Syncope and collapse. - Condition is Stable. - Discharge Instructions: Urinary Tract Infection, Adult, Iyag-[id number], Syncope, [id number]. - Prescriptions for Augmentin 500- 125 mg Oral Tablet - take 1 tablet by ORAL route every 8 hours for 7 days; 21 tablet. - Medication Reconciliation Form, Thank You Letter, Antibiotic Education form. - Follow up: Private Physician; When: 2 - 3 days; Reason: If symptoms return, Further diagnostic work-up, Recheck today's complaints, Continuance of care, Re-evaluation by your physician. - Problem is new. - Symptoms have improved. NIH Stroke Scale - NIH Stroke Score Date: 06/26/2020 Time: 11:15 Total Score = 2 1a. Level of Consciousness (LOC) - 0(Alert) 1b. Level of Consciousness (LOC) (Year \\T\\ Age) - 0(Both) 1c. LOC Commands (Open \\T\\ Closes Eyes/Certified Histologic Technician) - 0(Both) 2. Best Gaze (Lateral Gaze Paresis) - 0(Normal) 3. Visual Field Loss - 0(No visual loss) 4. Facial Palsy - 0(Normal) 5a. Left Arm: Motor (10-second hold) - 0(No drift) 5b. Right Arm: Motor (10-second hold) - 0(No drift) 6a. Left Leg: Motor (5-second hold - always test supine) - 1(Drift) 6b. Right Leg: Motor (5-second hold - always test supine) - 1(Drift) 7. Limb Ataxia (finger/nose \\T\\ heel/veliz - test with eyes open) - 0(Absent) 8. Sensory Loss (pinprick arms/legs/face) - 0(Normal) 9. Best Language: Aphasia (description/naming/reading) - 0(No aphasia) 10. Dysarthria (speech clarity - read or repeat words) - 0(Normal) 11. Extinction and Inattention (visual/tactile/auditory/spatial/personal) - 0(No abnormality) Initials: dm14 NIH Stroke Scale - NIH Stroke Score Date: 06/26/2020 Time: 11:35 Total Score = 2 1a. Level of Consciousness (LOC) - 0(Alert) 1b. Level of Consciousness (LOC) (Year \\T\\ Age) - 0(Both) 1c. LOC Commands (Open \\T\\ Closes Eyes/Certified Histologic Technician) - 0(Both) 2. Best Gaze (Lateral Gaze Paresis) - 0(Normal) 3. Visual Field Loss - 0(No visual loss) 4. Facial Palsy - 0(Normal) 5a. Left Arm: Motor (10-second hold) - 0(No drift) 5b. Right Arm: Motor (10-second hold) - 0(No drift) 6a. Left Leg: Motor (5-second hold - always test supine) - 1(Drift) 6b. Right Leg: Motor (5-second hold - always test supine) - 1(Drift) 7. Limb Ataxia (finger/nose \\T\\ heel/veliz - test with eyes open) - 0(Absent) 8. Sensory Loss (pinprick arms/legs/face) - 0(Normal) 9. Best Language: Aphasia (description/naming/reading) - 0(No aphasia) 10. Dysarthria (speech clarity - read or repeat words) - 0(Normal) 11. Extinction and Inattention (visual/tactile/auditory/spatial/personal) - 0(No abnormality) Initials: kdr Signatures: Dispatcher [employer] [facility] Francisco Olson MD MD kdr Eda Mann, RN RN aa5 Mohsen Nuñez RN RN jd3 Michelle Tamayo RN RN dm14 Corrections: (The following items were deleted from the chart) 11:38 11:20 CT-STROKE BRAIN W/O CONTRAST+CT.RAD.BRZ ordered. [facility] 19:13 18:20 06/26/2020 18:20 Discharged to Home. Impression: Urinary tract infection, dm14 site not specified; Syncope and collapse. Condition is Stable. Forms are Medication Reconciliation Form, Thank You Letter, Antibiotic Education, Prescription Opioid Use. Follow up: Private Physician; When: 2 - 3 days; Reason: If symptoms return, Further diagnostic work-up, Recheck today's complaints, Continuance of care, Re-evaluation by your physician. Problem is new. Symptoms have improved. kdr
--- NOTE | 2020-06-26 18:21 | ER ---
Nurse's Notes [facility] Name: Jocy Ledesma Age: 89 yrs Sex: Female : 1930 Arrival Date: 06/26/2020 Time: 11:18 Bed 4 Private MD: Diagnosis: Urinary tract infection, site not specified;Syncope and collapse Presentation: 06/26 11:31 Chief complaint: EMS states: "1015 pt had a syncope episode witnessed by the techs. jd3 when she woke up she had acute confusion with a shaking pattern that the halfway called a seizure on her right side. we saw the same thing happen, but it was more of a twitch than anything. we started a 22 G to the left wrist. there was maybe weakness to the right side, but most of her strengths seemed normal.". Coronavirus screen: At this time, the client does not indicate any symptoms associated with coronavirus-19. Ebola Screen: No symptoms or risks identified at this time. Initial Sepsis Screen: Does the patient meet any 2 criteria? No. Patient's initial sepsis screen is negative. Does the patient have a suspected source of infection? No. Patient's initial sepsis screen is negative. Risk Assessment: Do you want to hurt yourself or someone else? Patient reports no desire to harm self or others. Onset of symptoms was June 26, 2020 at 10:15. 11:31 Method Of Arrival: EMS: [facility] jd3 11:31 Acuity: LORENZA 3 jd3 11:37 No acute neurological deficit is noted. The patients blood glucose was checked before jd3 arriving to the hospital and was found to be normal. 11:38 Care prior to arrival: IV initiated. 22 GA, in the left wrist, Glucose check: 102. jd3 Triage Assessment: 11:00 The onset of the patients symptoms was June 26, 2020 at 10:15. General: Appears in dm14 no apparent distress. Behavior is calm. Stroke Activation: Symptom onset < 3 hours Physician: Stroke Attending; Name: ; Notified At: 11:00; Arrived At: Physician: Chief Stroke Resident; Name: ; Notified At: 11:00; Arrived At: Physician: Stroke Resident; Name: ; Notified At: 11:00; Arrived At: Physician: ED Attending; Name: Celio; Notified At: 11:00; Arrived At: 11:00 Physician: ED Resident; Name: ; Notified At: 11:00; Arrived At: Historical: - Allergies: 11:35 Ciprofloxacin HCl; jd3 11:35 Sulfa (Sulfonamide Antibiotics); jd3 - PMHx: 11:35 Dementia; GI Bleed; Atrial Fib; hypokalemia, hypothyroidism; CHF; jd3 - PSHx: 11:35 "Watchman" implant for Atrial Fib; jd3 - Immunization history:: Adult Immunizations unknown. - Social history:: Smoking status: Patient denies any tobacco usage or history of. Screenin:39 Abuse screen: Denies threats or abuse. Nutritional screening: Pt possible dehydrated as dm14 minimal urine obtained on catheterization and son states"Mom doesn't drink enough and experiences frequent UTIs. 16:55 Tuberculosis screening: No symptoms or risk factors identified. Fall Risk None dm14 identified. Assessment: 11:05 The patient has not been NPO before screening. The patient is currently on the jd3 following diet: regular The patient is alert, and able to follow commands. The patient does not exhibit slurred or garbled speech. The patient is not exhibiting difficulty speaking. The patient does not exhibit difficulty understanding words. The patient is able to swallow own secretions with no drooling or need for suction. Patient tolerated one teaspoon of water. No drooling, immediate coughing, gurgling, or clearing of the throat was noted. The patient tolerated 90mL of water. No drooling, immediate coughing, gurgling, or clearing of the throat was noted. The patient passed the bedside swallow screening. Oral medications may be given as ordered. Contact Physician for further diet orders. Provider notified of bedside swallow screening results: Francisco Olson MD. 11:15 VAN Scoring: Arm Drift: Patients demonstrates NO arm weakness. Patient is VAN Negative. jd3 11:20 T-PA (Activase) Screening: Contraindications: Rapidly improving condition or minor dm14 deficit: Yes. 12:34 Reassessment: Pt resting comfortably. Son at bedside. Sips of water given. dm14 13:50 Reassessment: Pt incontinent of moderate BM. Patricia-care given. Straight cath attempted dm14 x1 for minimal urine. Small amount of urine obtained on second attempt. Urine for culture sent to lab. Pt states is comfortable following. 16:55 Pain: Denies pain. Neuro: No deficits noted. dm14 18:39 Reassessment: Pt becoming agitated and cristian with staff. trying to crawl off the dm14 stretcher. notified and stated she could go home. Son notified of same. Pt put in a wheelchair by staff and told she would be going home soon. Vital Signs: 11:20 BP 134 / 88; Pulse 88; Resp 22; Pulse Ox 98% ; dm14 11:35 BP 113 / 75; Pulse 83; Resp 18 S; Temp 97.8(TE); Pulse Ox 97% ; Weight 74.84 kg (R); jd3 Pain 0/10; 12:00 BP 110 / 76; Pulse 77; Resp 15; Pulse Ox 97% ; dm14 12:56 BP 101 / 77; Pulse 68; Resp 15; Pulse Ox 96% ; dm14 NIH Stroke Scale Scores: 11:15 NIHSS Score: 2 dm14 11:35 NIHSS Score: 2 kdr ED Course: 11:00 security systems specialist on. Pulse ox on. NIBP on. dm14 11:00 Warm blanket given. dm14 11:00 Initial lab(s) drawn, by me, sent to lab. Urine collected: straight cath specimen, dm14 cloudy, EKG done, by ED staff, reviewed by Francisco Olson MD. Straight cath inserted, using sterile technique, 16 Fr. Specimen obtained. 11:18 Patient arrived in ED. aa5 11:18 Francisco Olson MD is Attending Physician. kdr 11:18 Ct Stroke Brain Wo Cont In Process Unspecified. EDMS 11:20 No provider procedures requiring assistance completed. Inserted saline lock: 20 gauge dm14 in left forearm, using aseptic technique. 11:34 Triage completed. jd3 11:36 Arm band placed on. jd3 12:14 Michelle Tamayo, RN is Primary Nurse. dm14 13:41 Stroke CXR 1 View In Process Unspecified. EDMS 14:39 Patient has correct armband on for positive identification. Bed in low position. Side dm14 rails up X2. 16:58 MRI - Brain W/Wo Cont In Process Unspecified. EDMS 19:10 IV discontinued, intact, bleeding controlled, No redness/swelling at site. Pressure dm14 dressing applied. Administered Medications: 16:05 Drug: Rocephin 1 grams {Note: infused over 2 minutes.} Route: IV; Rate: calculated dm14 rate; Site: left forearm; 16:08 Follow up: Response: No adverse reaction; IV Status: Completed infusion dm14 Point of Care Testing: Blood Glucose: 11:15 Blood Glucose: 87 mg/dL; jd3 Ranges: Outcome: 18:20 Discharge ordered by . kdr 19:10 Discharged to home via wheelchair, with family. dm14 19:10 Condition: stable 19:10 Discharge instructions given to patient, family, Instructed on discharge instructions, follow up and referral plans. medication usage, Demonstrated understanding of instructions, follow-up care, medications, Prescriptions given X 1. 19:13 Patient left the ED. dm14 NIH Stroke Scale - NIH Stroke Score Date: 06/26/2020 Time: 11:15 Total Score = 2 1a. Level of Consciousness (LOC) - 0(Alert) 1b. Level of Consciousness (LOC) (Year \\T\\ Age) - 0(Both) 1c. LOC Commands (Open \\T\\ Closes Eyes/Cue Selector) - 0(Both) 2. Best Gaze (Lateral Gaze Paresis) - 0(Normal) 3. Visual Field Loss - 0(No visual loss) 4. Facial Palsy - 0(Normal) 5a. Left Arm: Motor (10-second hold) - 0(No drift) 5b. Right Arm: Motor (10-second hold) - 0(No drift) 6a. Left Leg: Motor (5-second hold - always test supine) - 1(Drift) 6b. Right Leg: Motor (5-second hold - always test supine) - 1(Drift) 7. Limb Ataxia (finger/nose \\T\\ heel/veliz - test with eyes open) - 0(Absent) 8. Sensory Loss (pinprick arms/legs/face) - 0(Normal) 9. Best Language: Aphasia (description/naming/reading) - 0(No aphasia) 10. Dysarthria (speech clarity - read or repeat words) - 0(Normal) 11. Extinction and Inattention (visual/tactile/auditory/spatial/personal) - 0(No abnormality) Initials: dm14 NIH Stroke Scale - NIH Stroke Score Date: 06/26/2020 Time: 11:35 Total Score = 2 1a. Level of Consciousness (LOC) - 0(Alert) 1b. Level of Consciousness (LOC) (Year \\T\\ Age) - 0(Both) 1c. LOC Commands (Open \\T\\ Closes Eyes/Cue Selector) - 0(Both) 2. Best Gaze (Lateral Gaze Paresis) - 0(Normal) 3. Visual Field Loss - 0(No visual loss) 4. Facial Palsy - 0(Normal) 5a. Left Arm: Motor (10-second hold) - 0(No drift) 5b. Right Arm: Motor (10-second hold) - 0(No drift) 6a. Left Leg: Motor (5-second hold - always test supine) - 1(Drift) 6b. Right Leg: Motor (5-second hold - always test supine) - 1(Drift) 7. Limb Ataxia (finger/nose \\T\\ heel/veliz - test with eyes open) - 0(Absent) 8. Sensory Loss (pinprick arms/legs/face) - 0(Normal) 9. Best Language: Aphasia (description/naming/reading) - 0(No aphasia) 10. Dysarthria (speech clarity - read or repeat words) - 0(Normal) 11. Extinction and Inattention (visual/tactile/auditory/spatial/personal) - 0(No abnormality) Initials: kdr Addendum: 06/29/2020 16:32 Addendum: Culture Results: Positive urine culture. Unable to contact patient, aa5 phone not working at this time. Signatures: Dispatcher [employer] Francisco Kidd MD MD kdr Calderon, Audri, RN RN aa5 Mohsen Nuñez RN RN jd3 Michelle Tamayo RN RN dm14
[2020-06-26 19:20] VITALS: TEMP 97.8
[2020-06-26 19:22] VITALS: BP 101/77; O2SAT 96
== END 2020-06-26 19:13 | disposition home or self-care (01) ==
LOC: ER 10:59
DX: N39.0 Urinary tract infection, site not specified (principal); R55 Syncope and collapse; R29.702 NIHSS score 2; Z88.1 Allergy status to other antibiotic agents; Z88.2 Allergy status to sulfonamides
CPT/HCPCS: 93005; 87088; 85025; 87086; 80048; 36415; 85610; 82947; 85730; 87077; 87186; 81003; 70450; 71045; 70553; 51702; 96374; 99285; A9577; J0696